=== PATIENT | male | born 1965 | race Caucasian/White ===

== ENCOUNTER → 2018-09-06 | Outpatient (CLI) | payer BC ==
--- NOTE | 2018-09-06 10:26 | US ---
EXAMINATION TYPE: US venous doppler duplex LE RT DATE OF EXAM: 09/06/2018 10:15 AM COMPARISON: NONE CLINICAL HISTORY: R22.41 Swelling RLE. Pain and edema right lower leg. SIDE PERFORMED: right TECHNIQUE: The lower extremity deep venous system is examined utilizing real time linear array sonog vincent with graded compression, doppler sonography and color-flow sonography. VESSELS IMAGED: External Iliac Vein (EIV) Common Femoral Vein Deep Femoral Vein Greater Saphenous Vein * Femoral Vein Popliteal Vein Small Saphenous Vein * Proximal Calf Veins (* superficial vessels) Right Leg: No evidence of DVT. Lymph node right groin = 3.2 x 1.1 x 2.5cm IMPRESSION: 1. Right lower extremity negative for deep venous thrombosis. 2. Some prominent right inguinal adenopathy may be present
[2018-09-06 11:08] LABS: Basophils % (A) 0 %; Eosinophils # (A) 0.1 k/uL (0-0.7); Eosinophils % (A) 2 %; HCT 43.1 % (39.0-53.0); HGB 14.3 gm/dL (13.0-17.5); Lymphocytes # (A) 1.5 k/uL (1.0-4.8); Lymphocytes % (A) 22 %; MCH 30.5 pg (25.0-35.0); MCV 92.4 fL (80.0-100.0); Mean Platelet Volume 7.4; Monocytes # (A) 0.4 k/uL (0-1.0); Monocytes % (A) 5 %; Neutrophils # (A) 4.7 k/uL (1.3-7.7); Neutrophils % (A) 69 %; Platelet Count 130 k/uL (150-450); RBC 4.67 m/uL (4.30-5.90); RDW 12.9 % (11.5-15.5); WBC 6.8 k/uL (3.8-10.6)
[2018-09-06 11:24] LABS: ALT 48 U/L (21-72); AST 43 U/L (17-59); Albumin 4.1 g/dL (3.5-5.0); Alkaline Phosphatase 106 U/L (38-126); Anion Gap 8 mmol/L; Blood Urea Nitrogen 19 mg/dL (9-20); Calcium 9.6 mg/dL (8.4-10.2); Carbon Dioxide 29 mmol/L (22-30); Chloride 105 mmol/L (98-107); Cholesterol 167 mg/dL (<200); Glucose 104 mg/dL (74-99); HDL Cholesterol 47 mg/dL (40-60); LDL Cholesterol,Calculated 97 mg/dL (0-99); Potassium 4.6 mmol/L (3.5-5.1); Sodium 142 mmol/L (137-145); Total Bilirubin 0.6 mg/dL (0.2-1.3); Total Protein 8.2 g/dL (6.3-8.2); Triglycerides 114 mg/dL (<150)
--- NOTE | 2018-09-06 11:37 | XR ---
EXAMINATION TYPE: XR ankle complete RT, XR foot complete RT DATE OF EXAM: 09/06/2018 CLINICAL HISTORY: Pain and swelling for several weeks. TECHNIQUE: Frontal, lateral and oblique images of the right ankle and foot are obtained. COMPARISON: None. FINDINGS: There is mild to moderate diffuse subcutaneous edema and soft tissue swelling. There is no acute fracture/dislocation evident in the right ankle. The ankle mortise shows asymmetric mild media l widening. There is mild spurring from the medial malleolus. There is nonspecific sclerosis over th e lateral aspect of the lateral malleolus. There are moderate to large superior and inferior calcanea l spurs. There are soft tissue calcifications or ossifications along course of the distal Achilles te ndon which is poorly defined. There is marked flexion in the distal second through fifth toes There is no acute fracture or disloca tion evident in the right foot. There is pointing or peripheral loss of the distal aspect first dista l phalanx. Mild to moderate midfoot spurring and mild narrowing is present. Overlying soft tissue is unremarkable. IMPRESSION: As above.
[2018-09-06 15:40] LABS: Iron Saturation 13.5 (15.00-50.00)
[2018-09-06 17:39] LABS: Hemoglobin A1C 7.2 % (4.0-6.0)
== END ==
LOC: RADUSWWP 09:50
PROVIDERS: ATTEND Nurse Practitioner Adult Health
DX: M79.661 Pain in right lower leg (principal); M79.89 Other specified soft tissue disorders; E11.69 Type 2 diabetes mellitus with other specified complication; R22.41 Localized swelling, mass and lump, right lower limb
CPT/HCPCS: 80053; 80061; 82306; 82607; 83036; 83540; 83550; 85025

== ENCOUNTER → 2018-09-20 | Outpatient (CLI) | payer BC ==
--- NOTE | 2018-09-22 23:26 | MR ---
EXAMINATION TYPE: MR ankle RT wo con DATE OF EXAM: 09/20/2018 COMPARISON: None HISTORY: Pain in Post. Rt ankle and heel Standard multiplanar, multisequence MRI departmental protocol Multiplanar, multisequence images of the right ankle were acquired. Diffusion weighted imaging was pe rformed. FINDINGS: There is plantar and Achilles calcaneal spur formation. Calcaneus is intact. Subtalar joint is intact. The medial and lateral flexor tendons of the ankle are intact. There is however fluid vicki und the flexor pollicis longus tendon at the plantar aspect of the midfoot. There is soft tissue corey a at the plantar aspect of the midfoot. Achilles tendon shows a 3 cm segment with significant increas ed signal consistent with almost full-thickness tear of the Achilles tendon. There is some retraction of the tendon. The ankle mortise is anatomic. The collateral ligaments appear intact. There is subcutaneous edema ar ound the lower leg. IMPRESSION: Large almost full-thickness tear of the Achilles tendon. Subcutaneous edema around the lower leg. Soft tissue swelling and edema on the plantar aspect of the midfoot with fluid around the flexor poll icis longus tendon. No fracture seen.
== END | disposition home or self-care (01) ==
LOC: RADMRIMAIN 18:17
PROVIDERS: ATTEND Internal Medicine
DX: S86.011A Strain of right Achilles tendon, initial encounter (principal); M65.269 Calcific tendinitis, unspecified lower leg; M77.30 Calcaneal spur, unspecified foot

== ENCOUNTER 2020-09-17 13:50 | Emergency (ER) | payer BC, OTHER ==
[2020-09-17 14:06] VITALS: RESP 18
--- NOTE | 2020-09-17 14:51 | CT ---
EXAMINATION TYPE: CT brain roberta rodriguez DATE OF EXAM: 09/17/2020 COMPARISON: None HISTORY: Posterior head injury and laceration. CT DLP: 1649.9 mGycm Automated exposure control for dose reduction was used. TECHNIQUE: CT scan of the head and cervical spine are performed without contrast. FINDINGS: There is no acute intracranial hemorrhage, mass effect, or midline shift identified. The ventricles and sulci are within normal limits in size. The globes are intact and changes of chronic sinusitis noted. Along the posterior margin of the epidermis there is an irregularity correlate for soft tissue injury or laceration Assessment spinal canal is limited due to artifact and resolution. There is loss the normal cervical lordosis with multilevel moderate to severe degenerative disc disease most marked at levels C5-C7. Po sterior spondylosis and canal stenosis suspected these levels bilateral foraminal encroachment. Odontoid intact. Multilevel facet arthropathy. Calcification of the carotid arteries noted correlate for atherosclerotic disease groundglass changes involving the lung apices could be related to respira tory motion artifact correlate to exclude pneumonitis. 4.8 mm right upper lobe pulmonary nodule. IMPRESSION: 1. There is no acute fracture or dislocation evident in the cervical spine. Multilevel moderate to se giselle degenerative disc disease with posterior spondylosis suspected canal stenosis and foraminal encr oachment as discussed above. Follow-up MRI recommended. 2. No acute intracranial hemorrhage, mass effect, or midline shift is seen. 3. Groundglass changes right lung apex may be related to atelectasis correlate clinically to exclude a pneumonitis. There also is a 4 mm right upper lobe pulmonary nodule. Six-month follow-up CT scan re commended.
[2020-09-17 14:58] VITALS: BP 165/83; PULSE 86; TEMP 98.5
--- NOTE | 2020-09-17 15:04 | ED ---
Wound/Laceration HPI - General Chief Complaint: Wound/Laceration Stated Complaint: IHS-Head Lac Time Seen by Provider: 09/17/20 14:11 Source: patient Mode of arrival: wheelchair Limitations: no limitations - History of Present Illness Initial Comments: 54-year-old male presenting to the emergency department with a chief complaint of a laceration and head injury. Patient was working at his job when he accidentally bumped his head on the car latch. Patient reports some bleeding which is since resolved. Denies any loss of consciousness. No blood thinners. Tetanus up-to-date. Reports minimal pain. No alleviating or aggravating factors. This occurred about one hour prior to arrival. - Related Data Home Medications Medication Instructions Recorded Confirmed New Oral Diabetic Pill Unknown Name 1 tab PO DAILY 06/19/14 06/19/14 Previous Rx's Medication Instructions Recorded Cephalexin [Keflex] 250 mg PO Q6HR 7 Days day 06/19/14 Allergies Allergy/AdvReac Type Severity Reaction Status Date / Time No Known Allergies Allergy Verified 09/17/20 14:05 Review of Systems ROS Statement: Those systems with pertinent positive or pertinent negative responses have been documented in the HPI. ROS Other: All systems not noted in ROS Statement are negative. Past Medical History Past Medical History: Diabetes Mellitus History of Any Multi-Drug Resistant Organisms: None Reported Past Surgical History: No Surgical Hx Reported Past Psychological History: No Psychological Hx Reported Smoking Status: Never smoker Past Alcohol Use History: None Reported Past Drug Use History: None Reported General Exam Limitations: no limitations General appearance: alert, in no apparent distress Head exam: Present: atraumatic, normocephalic. Absent: normal inspection (6cm laceration parietal aspect of the head. This is a superficial laceration.), other (Negative Durand sign, raccoon eyes, hemotympanum.) Eye exam: Present: normal appearance, PERRL, EOMI Pupils: Present: normal accommodation ENT exam: Present: normal exam, normal oropharynx, mucous membranes moist, TM's normal bilaterally, normal external ear exam Neck exam: Present: normal inspection, full ROM. Absent: tenderness Respiratory exam: Present: normal lung sounds bilaterally. Absent: respiratory distress, wheezes, rales Cardiovascular Exam: Present: regular rate, normal rhythm, normal heart sounds. Absent: systolic murmur, diastolic murmur Extremities exam: Present: normal inspection, full ROM, normal capillary refill. Absent: tenderness, pedal edema, joint swelling Back exam: Present: normal inspection, full ROM. Absent: tenderness, CVA tenderness (R), CVA tenderness (L) Neurological exam: Present: alert, oriented X3, normal gait Psychiatric exam: Present: normal affect, normal mood Skin exam: Present: warm, dry, intact, normal color Course Vital Signs 09/17/20 09/17/20 14:02 14:57 Temperature 98.0 F 98.5 F Pulse Rate 97 86 Respiratory 18 18 Rate Blood Pressure 184/72 165/83 O2 Sat by Pulse 98 97 Oximetry Procedures - Laceration Laceration #1 Consent Obtained: verbal consent Indication: laceration Site: scalp Size (cm): 6 Description: linear, clean Depth: simple, single layer Sedation/Analgesia: none Pre-repair: irrigated extensively, deep structures intact Type of Sutures: other (Staple) Size of Sutures: other Number of Sutures: 11 Technique: other (Staple) Complications: pain Patient Tolerated Procedure: well, no complications Medical Decision Making - Medical Decision Making 54-year-old male presenting to the emergency department with chief complaint of head injury laceration. On physical examination, patient does have a laceration measuring a proximally 6 cm in the parietal aspect of the head. Patient is otherwise neurovascularly intact. No focal neural deficits. CT of the brain and C-spine shows no acute processes. However, there is moderate to severe degenerative disc disease with posterior spondylolysis suspected canal stenosis with foraminal encroachment. Follow-up MRI recommended. Radiology. There is also ground glass changes in the right lung apex along with a 4 mm right upper lobe pulmonary nodule. 6 month follow-up CT is recommended. Patient did mention that he had Covid about one month ago. Return parameters discussed with patient was understanding and agreeable. Staple instructions given. He had total of 11 octaviano. Laceration site was thoroughly irrigated. Case discussed with physician. Disposition Clinical Impression: Laceration, Head injury Disposition: HOME SELF-CARE Condition: Stable Instructions (If sedation given, give patient instructions): Laceration (DC), Staple Care (ED), Pulmonary Nodules (ED) Additional Instructions: Please return to the emergency room in 12-14 days to have staple removed. Please watch for any signs of infection which may include increased pain, swelling, redness, fever or chills. Please return to emergency room for any signs of infection do occur. Please use clean soap and water over the area to prevent scabbing over your octaviano. Please leave wound covered for the first 24-48 hours and then leave wound open to air. Please return to the emergency room for any other concerns. Is patient prescribed a controlled substance at d/c from ED?: No Referrals: Keiko Rodas NPC [Primary Care Provider] - 1-2 days Time of Disposition: 15:04
== END 2020-09-17 15:22 | disposition home or self-care (01) ==
LOC: EC 13:50
DX: M47.812 Spondylosis without myelopathy or radiculopathy, cervical region (principal); M50.322 Other cervical disc degeneration at C5-C6 level; S01.01XA Laceration without foreign body of scalp, initial encounter; E11.9 Type 2 diabetes mellitus without complications; R91.1 Solitary pulmonary nodule; Z79.84 Long term (current) use of oral hypoglycemic drugs; W22.8XXA Striking against or struck by other objects, initial encounter; Y92.69 Other specified industrial and construction area as the place of occurrence of the external cause; Y99.0 Civilian activity done for income or pay
CPT/HCPCS: 12002; 70450; 72125; 99283

== ENCOUNTER 2021-03-31 17:04 | Observation (INO) | payer BC ==
[2021-03-31] MEDS ORDERED: SODIUM CHLORIDE 0.9% 1,000 ML IV STA (17:19)
[2021-03-31] MEDS ORDERED: PANTOPRAZOLE 40 MG/10 ML VIAL IVP STA (17:19)
[2021-03-31] MEDS ORDERED: ACETAMINOPHEN TAB 500 MG TAB PO STA ×2 (17:30→20:07)
[2021-03-31 17:50] LABS: ALT 18 U/L (4-49); AST 30 U/L (17-59); African American GFR (CKD) >90 (>60 ml/min/1.73 sqM); Alkaline Phosphatase 85 U/L (38-126); Anion Gap 6 mmol/L; Blood Urea Nitrogen 10 mg/dL (9-20); Carbon Dioxide 26 mmol/L (22-30); Chloride 99 mmol/L (98-107); Glucose 346 mg/dL (74-99); Lipase 54 U/L (23-300); Non-African American GFR(CKD) >90 (>60 ml/min/1.73 sqM); Potassium 4.1 mmol/L (3.5-5.1); Sodium 131 mmol/L (137-145); Total Bilirubin 0.4 mg/dL (0.2-1.3); Total Protein 5.9 g/dL (6.3-8.2)
[2021-03-31 18:59] LABS: Basophils % (A) 0 %; Eosinophils % (A) 0 %; Lymphocytes # (A) 1.4 k/uL (1.0-4.8); Lymphocytes % (A) 18 %; MCH 33.1 pg (25.0-35.0); MCHC 34.8 g/dL (31.0-37.0); MCV 95.2 fL (80.0-100.0); Mean Platelet Volume 9.8; Monocytes # (A) 0.4 k/uL (0-1.0); Monocytes % (A) 5 %; Neutrophils # (A) 5.7 k/uL (1.3-7.7); Neutrophils % (A) 74 %; Platelet Count 127 k/uL (150-450); Poikilocytosis Slight; RBC 2.03 m/uL (4.30-5.90); RDW 15.2 % (11.5-15.5); WBC 7.7 k/uL (3.8-10.6)
[2021-03-31 19:18] LABS: HCT 19.3 % (39.0-53.0); HGB 6.7 gm/dL (13.0-17.5)
--- NOTE | 2021-03-31 19:28 | ED ---
GI Bleed HPI <Bernardo Melendez - Last Filed: 03/31/21 19:51> - General Source: patient, RN notes reviewed Mode of arrival: ambulatory Limitations: no limitations <Landen Short - Last Filed: 04/02/21 10:04> - General Chief complaint: GI Bleed Stated complaint: low hemoglobin, sent from Dr Time Seen by Provider: 03/31/21 17:13 - History of Present Illness Initial comments: Patient is a 55-year-old male that presents to the emergency department complaining of abnormal labs at routine checkup with a low hemoglobin of 6.7. Patient also states that he is constipated his last normal bowel movement was Sunday or Sunday. He notes that he has been very gassy but has not had a bowel movement. He notes that he does have a history of an umbilical hernia which is not causing any issue in the past. Patient was otherwise well- appearing while sitting up in bed and in exam and interview. He did note that his last bowel movement was black and tarry. He denied any other issues or complaints. He denied any abdominal history. He denied any chest pain shortness of breath headache nausea vomiting diarrhea fatigue chills. (Landen Short) - Related Data Home Medications Medication Instructions Recorded Confirmed Insulin Aspart Protam & Aspart 60 unit SQ BID 03/31/21 03/31/21 [NovoLOG MIX 70-30 Flexpen] Naproxen Sodium [Aleve] 220 mg PO DAILY PRN 03/31/21 03/31/21 Ondansetron HCl [Zofran] 4 mg PO Q6H PRN 03/31/21 03/31/21 Pregabalin [Lyrica] 50 mg PO HS PRN 03/31/21 03/31/21 Pregabalin [Lyrica] 100 mg PO HS 03/31/21 03/31/21 metFORMIN HCL [Glucophage] 1,000 mg PO BID 03/31/21 03/31/21 rOPINIRole HCL [Requip] 2 - 4 mg PO HS 03/31/21 03/31/21 Allergies Allergy/AdvReac Type Severity Reaction Status Date / Time No Known Allergies Allergy Verified 03/31/21 18:42 Review of Systems ROS Other: All systems not noted in ROS Statement are negative. <Bernardo Melendez - Last Filed: 03/31/21 19:51> ROS Other: All systems not noted in ROS Statement are negative. <ShortLanden - Last Filed: 04/02/21 10:04> ROS Statement: Those systems with pertinent positive or pertinent negative responses have been documented in the HPI. Past Medical History Past Medical History: Diabetes Mellitus History of Any Multi-Drug Resistant Organisms: None Reported Past Surgical History: No Surgical Hx Reported Past Psychological History: No Psychological Hx Reported Smoking Status: Never smoker Past Alcohol Use History: None Reported Past Drug Use History: None Reported <Short,Landen - Last Filed: 04/02/21 10:04> General Exam Limitations: no limitations General appearance: alert, in no apparent distress, obese Head exam: Present: atraumatic, normocephalic, normal inspection Eye exam: Present: normal appearance, PERRL, EOMI. Absent: scleral icterus, conjunctival injection, periorbital swelling Neck exam: Present: normal inspection Respiratory exam: Present: normal lung sounds bilaterally. Absent: respiratory distress, wheezes, rales, rhonchi, stridor Cardiovascular Exam: Present: regular rate, normal rhythm, normal heart sounds. Absent: systolic murmur, diastolic murmur, rubs, gallop, clicks GI/Abdominal exam: Present: soft, distended, normal bowel sounds. Absent: tenderness, guarding, rebound, rigid Extremities exam: Present: normal inspection, full ROM, normal capillary refill. Absent: tenderness, pedal edema, joint swelling, calf tenderness Neurological exam: Present: alert, oriented X3 Psychiatric exam: Present: normal affect, normal mood Skin exam: Present: warm, dry, intact, normal color. Absent: rash <ShortLanden - Last Filed: 04/02/21 10:04> Course Vital Signs 03/31/21 03/31/21 03/31/21 17:08 17:27 20:04 Temperature 98.2 F 101.8 F H 102.2 F H Pulse Rate 105 H 91 Respiratory 20 19 Rate Blood Pressure 162/73 130/58 O2 Sat by Pulse 97 100 Oximetry 03/31/21 03/31/21 03/31/21 20:30 20:40 20:50 Temperature 99.6 F 99.1 F 99.6 F Pulse Rate 92 91 88 Respiratory 20 18 20 Rate Blood Pressure 128/62 116/59 126/62 O2 Sat by Pulse 95 95 95 Oximetry 03/31/21 03/31/21 21:00 21:30 Temperature Pulse Rate 94 87 Respiratory 18 20 Rate Blood Pressure 118/54 131/61 O2 Sat by Pulse 100 98 Oximetry Medical Decision Making - Lab Data Result diagrams: 03/31/21 17:27 03/31/21 17:27 <Bernardo Melendez - Last Filed: 03/31/21 19:51> - Lab Data Result diagrams: 04/02/21 07:37 04/02/21 07:37 <Landen Short - Last Filed: 04/02/21 10:04> - Medical Decision Making Patient out to me by previous shift physician product development assistant, Donald Short. Briefly, patient 55-year-old male presents with multiple days of GI bleed. Vital signs upon arrival shows heart rate of 105,. Repeat temperature showed pyrexia 11.8. Patient evaluated at bedside approximate 7:30 PM. Denies any localizing symptoms. He works in EMS. He may have had URI symptoms that were short-lived. He is vaccinated for Covid. Plan at sign out was to follow-up with CT imaging. Blood cultures and urine cultures were ordered. For panel viral PCR was ordered pending results. Ordered for 2 units of blood. Case is discussed with electrician manager Dr. Fernando Tian who did not feel patient met criteria for ICU admission. Patient be admitted to [facility] physician Dr. Gibbons. GI consulted (Bernardo Melendez) 55-year-old male complaining of constipation, low hemoglobin level and lower GI bleed. Labs, computed tomography scan abdomen and pelvis, 1 L normal saline, occult blood test, 40 mg of pantoprazole Labs: Hemoglobin 6.7 hematocrit 19.3 glucose 346, stool occult positive. Case signed out to Dr. Melendez (Landen Short) - Lab Data Lab Results 03/31/21 03/31/21 03/31/21 Range/Units 17:25 17:26 17:27 WBC 7.7 (3.8-10.6) k/uL RBC 2.03 L (4.30-5.90) m/uL Hgb 6.7 L* (13.0-17.5) gm/dL Hct 19.3 L* (39.0-53.0) % MCV 95.2 (80.0-100.0) fL MCH 33.1 (25.0-35.0) pg MCHC 34.8 (31.0-37.0) g/dL RDW 15.2 (11.5-15.5) % Plt Count 127 L (150-450) k/uL MPV 9.8 Neutrophils % 74 % Lymphocytes % 18 % Monocytes % 5 % Eosinophils % 0 % Basophils % 0 % Neutrophils # 5.7 (1.3-7.7) k/uL Lymphocytes # 1.4 (1.0-4.8) k/uL Monocytes # 0.4 (0-1.0) k/uL Eosinophils # 0.0 (0-0.7) k/uL Basophils # 0.0 (0-0.2) k/uL Poikilocytosis Slight APTT (22.0-30.0) sec Sodium (137-145) mmol/L Potassium (3.5-5.1) mmol/L Chloride (98-107) mmol/L Carbon Dioxide (22-30) mmol/L Anion Gap mmol/L BUN (9-20) mg/dL Creatinine (0.66-1.25) mg/dL Est GFR (CKD-EPI)AfAm (>60 ml/min/1.73 sqM) Est GFR (CKD-EPI)NonAf (>60 ml/min/1.73 sqM) Glucose (74-99) mg/dL Calcium (8.4-10.2) mg/dL Total Bilirubin (0.2-1.3) mg/dL AST (17-59) U/L ALT (4-49) U/L Alkaline Phosphatase (38-126) U/L Troponin I (0.000-0.034) ng/mL Total Protein (6.3-8.2) g/dL Albumin (3.5-5.0) g/dL Lipase (23-300) U/L Stool Occult Blood (Negative) Blood Type O Positive Blood Type Confirm O Positive Blood Type Recheck No Previous Record Bld Type Recheck Status CABO Indicated Antibody Screen NEGATIVE Crossmatch See Detail Spec Expiration Date 04/03/2021232403/31/21 03/31/21 03/31/21 Range/Units 17:27 17:27 17:27 WBC (3.8-10.6) k/uL RBC (4.30-5.90) m/uL Hgb (13.0-17.5) gm/dL Hct (39.0-53.0) % MCV (80.0-100.0) fL MCH (25.0-35.0) pg MCHC (31.0-37.0) g/dL RDW (11.5-15.5) % Plt Count (150-450) k/uL MPV Neutrophils % % Lymphocytes % % Monocytes % % Eosinophils % % Basophils % % Neutrophils # (1.3-7.7) k/uL Lymphocytes # (1.0-4.8) k/uL Monocytes # (0-1.0) k/uL Eosinophils # (0-0.7) k/uL Basophils # (0-0.2) k/uL Poikilocytosis APTT 20.2 L (22.0-30.0) sec Sodium 131 L (137-145) mmol/L Potassium 4.1 (3.5-5.1) mmol/L Chloride 99 (98-107) mmol/L Carbon Dioxide 26 (22-30) mmol/L Anion Gap 6 mmol/L BUN 10 (9-20) mg/dL Creatinine 0.80 (0.66-1.25) mg/dL Est GFR (CKD-EPI)AfAm >90 (>60 ml/min/1.73 sqM) Est GFR (CKD-EPI)NonAf >90 (>60 ml/min/1.73 sqM) Glucose 346 H (74-99) mg/dL Calcium 8.0 L (8.4-10.2) mg/dL Total Bilirubin 0.4 (0.2-1.3) mg/dL AST 30 (17-59) U/L ALT 18 (4-49) U/L Alkaline Phosphatase 85 (38-126) U/L Troponin I 0.028 (0.000-0.034) ng/mL Total Protein 5.9 L (6.3-8.2) g/dL Albumin 3.0 L (3.5-5.0) g/dL Lipase 54 (23-300) U/L Stool Occult Blood (Negative) Blood Type Blood Type Confirm Blood Type Recheck Bld Type Recheck Status Antibody Screen Crossmatch Spec Expiration Date 03/31/21 Range/Units 17:39 WBC (3.8-10.6) k/uL RBC (4.30-5.90) m/uL Hgb (13.0-17.5) gm/dL Hct (39.0-53.0) % MCV (80.0-100.0) fL MCH (25.0-35.0) pg MCHC (31.0-37.0) g/dL RDW (11.5-15.5) % Plt Count (150-450) k/uL MPV Neutrophils % % Lymphocytes % % Monocytes % % Eosinophils % % Basophils % % Neutrophils # (1.3-7.7) k/uL Lymphocytes # (1.0-4.8) k/uL Monocytes # (0-1.0) k/uL Eosinophils # (0-0.7) k/uL Basophils # (0-0.2) k/uL Poikilocytosis APTT (22.0-30.0) sec Sodium (137-145) mmol/L Potassium (3.5-5.1) mmol/L Chloride (98-107) mmol/L Carbon Dioxide (22-30) mmol/L Anion Gap mmol/L BUN (9-20) mg/dL Creatinine (0.66-1.25) mg/dL Est GFR (CKD-EPI)AfAm (>60 ml/min/1.73 sqM) Est GFR (CKD-EPI)NonAf (>60 ml/min/1.73 sqM) Glucose (74-99) mg/dL Calcium (8.4-10.2) mg/dL Total Bilirubin (0.2-1.3) mg/dL AST (17-59) U/L ALT (4-49) U/L Alkaline Phosphatase (38-126) U/L Troponin I (0.000-0.034) ng/mL Total Protein (6.3-8.2) g/dL Albumin (3.5-5.0) g/dL Lipase (23-300) U/L Stool Occult Blood Positive (Negative) Blood Type Blood Type Confirm Blood Type Recheck Bld Type Recheck Status Antibody Screen Crossmatch Spec Expiration Date Disposition <Bernardo Melendez - Last Filed: 03/31/21 19:51> Is patient prescribed a controlled substance at d/c from ED?: No <Landen Short - Last Filed: 04/02/21 10:04> Clinical Impression: Anemia, GI bleed, Fever, Splenomegaly Disposition: ADMITTED IP TO THIS HOSP Condition: Stable
[2021-03-31] MEDS ORDERED: NALOXONE 0.4 MG/ML 1 ML VIAL IV PRN (19:48)
--- NOTE | 2021-03-31 20:11 | CT ---
EXAMINATION TYPE: CT abdomen pelvis w con DATE OF EXAM: 03/31/2021 COMPARISON: None HISTORY: Fever, low hemoglobin. Vomiting blood and blood in stool [address] DLP: 2548.4 mGycm Automated exposure control for dose reduction was used. TECHNIQUE: Helical acquisition of images was performed from the lung bases through the pelvis. CONTRAST: Performed without Oral Contrast and with IV Contrast, patient injected with 100 mL of Isovu e 300. FINDINGS: LUNG BASES: No acute findings. LIVER/GB: No significant abnormality is appreciated. The biliary tree is unremarkable PANCREAS/DUODENUM: The pancreatic ducts are unremarkable. The uncinate process of the pancreas and th e second and third portion of the duodenum shows prominent edematous change consistent with the diagn osis of pancreatitis versus duodenitis, but presumably pancreatitis with secondary duodenitis. There is a 1 cm gas bubble in the pancreatic groove, a nonspecific finding which may represent duodenal div erticulum. There are no drainable fluid collections. These findings can be further characterized using endoscopy. SPLEEN: Moderate splenomegaly noted, no focal findings. ADRENALS: No significant abnormality is seen. KIDNEYS: No significant abnormality is seen. PERITONEAL CAVITY: No pneumoperitoneum. There is only trace perihepatic peritoneal fluid, the periton eal cavity is otherwise negative for fluid. RETROPERITONEAL ADENOPATHY: None visualized REPRODUCTIVE ORGANS: No significant abnormality is seen URINARY BLADDER: No significant abnormality is seen. PELVIC ADENOPATHY: None visualized. OSSEOUS STRUCTURES: No significant abnormality is seen. BOWEL: No significant abnormality is seen. OTHER: No acute vascular findings. IMPRESSION: 1. INFLAMMATORY CHANGES INVOLVING THE SECOND/THIRD PORTION OF THE DUODENUM AND UNCINATE PROCESS OF T HE PANCREAS, LIKELY PANCREATITIS/DUODENITIS. 2. MODERATE SPLENOMEGALY NOTED.
--- NOTE | 2021-03-31 20:39 | XR ---
EXAMINATION: XR chest 1V portable DATE AND TIME: 03/31/2021 8:08 PM CLINICAL INDICATION: PHH; fever TECHNIQUE: AP upright portable COMPARISON: None FINDINGS: The lungs are clear. The pleural spaces are negative. The cardiac silhouette is not enlarged. The remainder of the mediastinal silhouette is unremarkable. The skeletal structures and soft tissues are negative for acute findings. IMPRESSION: No definite acute radiographic process.
[2021-03-31] MEDS ORDERED: PREGABALIN 75 MG CAP PO STA (23:57)
[2021-04-01] MEDS ORDERED: rOPINIRole HCL 4 MG TABLET PO ONE
[2021-04-01] MEDS ORDERED: PREGABALIN 50 MG CAP PO PRN (00:17)
--- NOTE | 2021-04-01 00:19 | P.HPIM ---
History of Present Illness H&P Date: 04/01/21 Patient is a 55-year-old male with a PMH of type II DM who was sent to the emergency room due to severe anemia. Patient reports that he was in his usual state of health until this past Sunday, 5 days prior to presentation when he was out camping and became acutely ill with vomiting and diarrhea. The patient reports having dark black 2 episodes of emesis along with 3-4 episodes of tarry black stools. He reports that his last stool was on Sunday and that he has not had a bowel movement since then. He reports feeling lethargic since the onset of his symptoms. Reports also having flatulence which which she states chronic issue. He denied any additional complaints. Denied abdominal pain, subjective fevers, chills. Reports no history of GI bleeding or abdominal pain. Denied history of GERD requiring medications. Reports a family history of colon cancer and undergoes colonoscopy every 5 years since the age of 39 with last colonoscopy 3 years ago which was completely unremarkable as per patient. Denied noticing any ticks or bites. Denied noticing any rashes. Denied chest discomfort, shortness of breath. Reports that he contracted COVID-19 in August of last year and subsequently received a Moderna vaccine in October. Denied headaches, visual disturbances. Denied leg swelling or recent travel. Did report that his dog has also been under the weather since the camping trip. He initially went to see his primary care physician who ordered blood work which resulted as severe anemia with hemoglobin less than 7 for which the patient was sent to the emergency room. Repeat evaluation in the emergency room revealed hemoglobin of 6.7 and platelet count 127. Further evaluation revealed a sodium of 131, glucose 346, troponin 0.028, lipase 54, and FOBT positive. CT abdomen and pelvis revealed inflammation of the duodenum and pancreas along with moderate splenomegaly. Chest x-ray was unremarkable. The patient was noted to be febrile in the emergency room with a T-max 102.2. Review of systems: Pertinent positives and negatives as discussed in HPI, a complete review of systems was performed and all other systems are negative. Physical examination: General: non toxic, no distress, appears at stated age, obese Derm: no unusual rashes/lesions no unusual ecchymoses, warm, dry Head: atraumatic, normocephalic, symmetric Eyes: EOMI, no lid lag, anicteric sclera, pupils equal round reactive to light ENT: Nose and ears atraumatic, no thrush, no pharyngeal erythema Neck: No thyromegaly, no cervical lymphadenopathy, trachea midline, supple Mouth: no lip lesion, mucus membranes moist Cardiovascular: S1S2 reg, no murmur, positive posterior tibial pulse bilateral, no edema, capillary refill less than 2 seconds Lungs: CTA bilateral, no rhonchi, no rales , no accessory muscle use Abdominal: soft, nontender to palpation, no guarding, no appreciable organomegaly, normal bowel sounds Ext: no gross muscle atrophy, muscle strength 5 out of 5 in all 4 extremities grossly, no contractures, Neuro: CN II-XI grossly intact, light touch intact all 4 extremities, finger to nose within normal limits, Psych: Alert, oriented, appropriate affect Assessment/plan Acute blood loss anemia secondary to GI bleeding -Status post 2 units of PRBCs -GI consult -IV hydration -Nothing by mouth for now SIRS, unclear etiology -Check ESR and liver function -Follow-up urinalysis and blood cultures -Consult infectious disease in setting of splenomegaly Chronic conditions: Type II DM, restless leg syndrome -Continue with home meds -Hold oral hypoglycemics -Lispro sliding scale and blood glucose monitoring -Check A1c DVT prophylaxis -IPCDs The patient is admitted with an anticipated greater than 2 midnight stay for evaluation of acute blood loss anemia CODE STATUS: Full code Discussed with: Patient Anticipated discharge date: 2-[address]: Home Past Medical History Past Medical History: Diabetes Mellitus History of Any Multi-Drug Resistant Organisms: None Reported Past Surgical History: No Surgical Hx Reported Past Psychological History: No Psychological Hx Reported Smoking Status: Never smoker Past Alcohol Use History: None Reported Past Drug Use History: None Reported Medications and Allergies Home Medications Medication Instructions Recorded Confirmed Type Insulin Aspart Protam & Aspart 60 unit SQ BID 03/31/21 03/31/21 History [NovoLOG MIX 70-30 Flexpen] Naproxen Sodium [Aleve] 220 mg PO DAILY PRN 03/31/21 03/31/21 History Ondansetron HCl [Zofran] 4 mg PO Q6H PRN 03/31/21 03/31/21 History Pregabalin [Lyrica] 50 mg PO HS PRN 03/31/21 03/31/21 History Pregabalin [Lyrica] 100 mg PO HS 03/31/21 03/31/21 History metFORMIN HCL [Glucophage] 1,000 mg PO BID 03/31/21 03/31/21 History rOPINIRole HCL [Requip] 2 - 4 mg PO HS 03/31/21 03/31/21 History Allergies Allergy/AdvReac Type Severity Reaction Status Date / Time No Known Allergies Allergy Verified 03/31/21 18:42 Physical Exam Vitals: Vital Signs Temp Pulse Resp BP Pulse Ox 03/31/21 23:48 99.7 F H 91 22 137/69 95 03/31/21 23:25 90 20 122/74 96 03/31/21 21:30 87 20 131/61 98 03/31/21 21:00 94 18 118/54 100 03/31/21 20:50 99.6 F 88 20 126/62 95 03/31/21 20:40 99.1 F 91 18 116/59 95 03/31/21 20:30 99.6 F 92 20 128/62 95 03/31/21 20:04 102.2 F H 91 19 130/58 100 03/31/21 17:27 101.8 F H 03/31/21 17:08 98.2 F 105 H 20 162/73 97 Intake and Output 03/31/21 03/31/21 04/01/21 14:59 22:59 06:59 Intake Total 0 310 Balance 0 310 Intake: Blood Product 0 310 Rc As-1 Unit 0 310 [id number] Rc Pheresis As-3 Unit 0 [id number] Other: Weight 128.367 kg Results CBC & Chem 7: 03/31/21 17:27 03/31/21 17:27 Labs: Abnormal Lab Results - Last 24 Hours (Table) 03/31/21 03/31/21 03/31/21 Range/Units 17:25 17:27 17:27 RBC 2.03 L (4.30-5.90) m/uL Hgb 6.7 L* (13.0-17.5) gm/dL Hct 19.3 L* (39.0-53.0) % Plt Count 127 L (150-450) k/uL APTT 20.2 L (22.0-30.0) sec Sodium (137-145) mmol/L Glucose (74-99) mg/dL Calcium (8.4-10.2) mg/dL Total Protein (6.3-8.2) g/dL Albumin (3.5-5.0) g/dL Crossmatch See Detail 03/31/21 Range/Units 17:27 RBC (4.30-5.90) m/uL Hgb (13.0-17.5) gm/dL Hct (39.0-53.0) % Plt Count (150-450) k/uL APTT (22.0-30.0) sec Sodium 131 L (137-145) mmol/L Glucose 346 H (74-99) mg/dL Calcium 8.0 L (8.4-10.2) mg/dL Total Protein 5.9 L (6.3-8.2) g/dL Albumin 3.0 L (3.5-5.0) g/dL Crossmatch
[2021-04-01 03:27] LABS: African American GFR (CKD) >90 (>60 ml/min/1.73 sqM); Anion Gap 4 mmol/L; Blood Urea Nitrogen 10 mg/dL (9-20); Calcium 7.7 mg/dL (8.4-10.2); Carbon Dioxide 26 mmol/L (22-30); Chloride 102 mmol/L (98-107); Glucose 250 mg/dL (74-99); Non-African American GFR(CKD) >90 (>60 ml/min/1.73 sqM); Potassium 3.9 mmol/L (3.5-5.1); Sodium 132 mmol/L (137-145); Total Protein 5.5 g/dL (6.3-8.2)
[2021-04-01 03:28] LABS: ALT 15 U/L (4-49); AST 22 U/L (17-59); Albumin 2.7 g/dL (3.5-5.0); Alkaline Phosphatase 67 U/L (38-126); Total Bilirubin 0.7 mg/dL (0.2-1.3)
[2021-04-01 03:36] LABS: HCT 22.7 % (39.0-53.0); HGB 7.7 gm/dL (13.0-17.5); MCH 31.8 pg (25.0-35.0); MCHC 33.8 g/dL (31.0-37.0); MCV 93.8 fL (80.0-100.0); Mean Platelet Volume 9.1; Platelet Count 128 k/uL (150-450); Poikilocytosis Slight; RBC 2.42 m/uL (4.30-5.90); RDW 15.7 % (11.5-15.5)
[2021-04-01] MEDS: SODIUM CHLORIDE 0.9% 1,000 ML IV SCH ×4 (07:23→20:15)
[2021-04-01 07:29] LABS: Glucose,Whole Blood 231 mg/dL (75-99)
[2021-04-01 08:15] LABS: Appearance,Urine Clear (Clear); Bilirubin,Urine Negative (Negative); Blood,Urine Negative (Negative); Color,Urine Yellow; Glucose,Urine (UA) 3+ (Negative); Ketones,Urine Negative (Negative); Leukocyte Esterase,Urine Negative (Negative); Nitrite,Urine Negative (Negative); PH, Urine 5.5 (5.0-8.0); Protein,Urine Negative (Negative); Specific Gravity,Urine 1.019 (1.001-1.035); Urobilinogen,Urine <2.0 mg/dL (<2.0)
[2021-04-01] MEDS: INSULIN ASPART (NovoLOG) 100 UNIT/ML VIAL SQ SCH ×4 (08:16→20:10)
[2021-04-01 08:25] LABS: HCT 23.1 % (39.0-53.0); HGB 7.8 gm/dL (13.0-17.5); MCH 31.5 pg (25.0-35.0); MCHC 33.6 g/dL (31.0-37.0); MCV 93.7 fL (80.0-100.0); Mean Platelet Volume 9.2; Platelet Count 135 k/uL (150-450); Poikilocytosis Slight; RBC 2.47 m/uL (4.30-5.90); RDW 15.7 % (11.5-15.5); WBC 8.8 k/uL (3.8-10.6)
[2021-04-01] MEDS: ACETAMINOPHEN TAB 325 MG TAB PO PRN ×2 (10:40)
[2021-04-01 11:57] LABS: Glucose,Whole Blood 197 mg/dL (75-99)
[2021-04-01] MEDS: PANTOPRAZOLE 40 MG/10 ML VIAL IVP SCH ×2 (12:11→20:10)
[2021-04-01] MEDS ORDERED: PROPOFOL 10 MG/ML 20 ML VIAL IV ONE (14:06)
[2021-04-01] MEDS ORDERED: IV FLUID CONTINUATION 1,000 ML IV ONE ×2 (14:10)
--- NOTE | 2021-04-01 14:25 | P.PCN ---
Date of Procedure: 04/01/21 Procedure(s) Performed: BRIEF HISTORY: Patient is a 55-year-old, pleasant, white male admitted hospital with severe symptomatic anemia and hemoglobin of 6.7 g/dL and received 2 units of PRBC transfusion. He had an episode of hematemesis and coffee-ground emesis about 5 days ago.. He developed abdomen revealed thickening of the duodenum suspicious for ulcer. Patient never had his symptoms in the past. No history of chronic liver disease. PROCEDURE PERFORMED: Esophagogastroduodenoscopy with esophageal variceal ligation. PREOPERATIVE DIAGNOSIS: Severe symptomatic anemia and acute upper GI bleed. IV sedation per anesthesia. PROCEDURE: After informed consent was obtained, the patient was brought into the endoscopy unit. IV sedation was administered by Anesthesia under continuous monitoring. Initially the Olympus GIF-140 video endoscope was inserted into the mouth. Esophagus intubated without any difficulty. It was gradually advanced into the stomach and duodenum and carefully examined. The bulb and the second part of the duodenum appeared normal. The scope at this time was withdrawn to the stomach, adequately insufflated with air, and upon careful examination, mucosa of the antrum, body, cardia and the fundus appeared normal. There was no active bleeding identified. The scope was then withdrawn into the esophagus. The GE junction was located at 39 cm from the incisors. There were large mid/distal esophageal varices identified with no stigmata of recent bleeding or active bleeding. The rest of the esophagus appeared normal. There were no erosions or ulcerations seen. At this time the scope was removed and esophageal variceal ligation equipment was introduced into the tip of the scope and esophagus intubated without any difficulty and was gradually advanced into the distal esophagus. Using suction total of 6 bands were deployed in the distal and mid esophagus using suction. The proximal esophagus appeared normal and and the patient tolerated the procedure well. IMPRESSION: 1. Large nonbleeding mid/distal esophageal varices status post variceal ligation as described above. 2. No evidence of peptic ulcer disease. RECOMMENDATIONS: The findings of this examination were discussed with the patient as well as his family. He'll be started on a clear liquid diet. Continue with Protonix 40 mg twice daily. Initiate workup for chronic liver disease. If he stable millimeters sessile tomorrow with an outpatient follow-up in 2-3 weeks
--- NOTE | 2021-04-01 15:15 | P.PN ---
Subjective Progress Note Date: 04/01/21 Principal diagnosis: GI bleeding No further episodes of bleeding or vomiting. No nausea. No abdominal pain. No fevers or chills. Objective - Vital Signs Vital signs: Vital Signs Temp 98.4 F 04/01/21 11:36 Pulse 76 04/01/21 14:40 Resp 16 04/01/21 14:40 BP 125/58 04/01/21 14:40 Pulse Ox 96 04/01/21 14:40 Intake & Output 03/31/21 04/01/21 04/01/21 18:59 06:59 18:59 Intake Total 585 50 Output Total 575 Balance 585 -525 Weight 128.367 kg 131.1 kg Intake: IV 50 Oral 0 Blood Product 585 Rc As-1 Unit 310 [id number] Rc Pheresis As-3 Unit 275 [id number] Output: Urine 575 Other: Voiding Method Urinal # Voids 2 - Exam Constitutional: No acute distress, conversant, pleasant Eyes:Anicteric sclerae, moist conjunctiva, no lid-lag, PERRLA, ENMT: Oropharynx clear, no erythema, exudates Neck: Supple, FROM, no masses, or JVD, No carotid bruits, No thyromegaly Lungs: Clear to auscultation, Clear to percussion, Normal respiratory effort, no accessory muscle use Cardiovascular: Heart regular in rate and rhythm, No murmurs, gallops, or rubs, No peripheral edema Abdominal: Soft, Nontender, no guarding, rebound or rigidity, Normoactive bowel sounds, No hepatomegaly, No splenomegaly, No palpable mass Skin: Normal temperature, tone, texture, turgor, no induration, No subcutaneous nodules, No rash, lesions, No ulcers Extremities: No digital cyanosis, No clubbing, Pedal pulses intact and symmetrical, Radial pulses intact and symmetrical, No calf tenderness Psychiatric: Alert and oriented to person, place and time, appropriate affect, intact judgement Neuro: Muscles Strength 5/5 in all 4 extremities, Sensation to light touch grossly present throughout, Cranial nerves II-XII grossly intact, no focal sensory deficits - Labs CBC & Chem 7: 04/01/21 07:56 04/01/21 02:36 Labs: Abnormal Lab Results - Last 24 Hours (Table) 03/31/21 03/31/21 03/31/21 Range/Units 17:25 17:27 17:27 RBC 2.03 L (4.30-5.90) m/uL Hgb 6.7 L* (13.0-17.5) gm/dL Hct 19.3 L* (39.0-53.0) % RDW (11.5-15.5) % Plt Count 127 L (150-450) k/uL APTT 20.2 L (22.0-30.0) sec Sodium (137-145) mmol/L Glucose (74-99) mg/dL POC Glucose (mg/dL) (75-99) mg/dL Calcium (8.4-10.2) mg/dL Total Protein (6.3-8.2) g/dL Albumin (3.5-5.0) g/dL Urine Glucose (UA) (Negative) Crossmatch See Detail 03/31/21 04/01/21 04/01/21 Range/Units 17:27 02:36 02:36 RBC 2.42 L (4.30-5.90) m/uL Hgb 7.7 L (13.0-17.5) gm/dL Hct 22.7 L (39.0-53.0) % RDW 15.7 H (11.5-15.5) % Plt Count 128 L (150-450) k/uL APTT (22.0-30.0) sec Sodium 131 L 132 L (137-145) mmol/L Glucose 346 H 250 H (74-99) mg/dL POC Glucose (mg/dL) (75-99) mg/dL Calcium 8.0 L 7.7 L (8.4-10.2) mg/dL Total Protein 5.9 L 5.5 L (6.3-8.2) g/dL Albumin 3.0 L 2.7 L (3.5-5.0) g/dL Urine Glucose (UA) (Negative) Crossmatch 04/01/21 04/01/21 04/01/21 Range/Units 07:27 07:40 07:56 RBC 2.47 L (4.30-5.90) m/uL Hgb 7.8 L (13.0-17.5) gm/dL Hct 23.1 L (39.0-53.0) % RDW 15.7 H (11.5-15.5) % Plt Count 135 L (150-450) k/uL APTT (22.0-30.0) sec Sodium (137-145) mmol/L Glucose (74-99) mg/dL POC Glucose (mg/dL) 231 H (75-99) mg/dL Calcium (8.4-10.2) mg/dL Total Protein (6.3-8.2) g/dL Albumin (3.5-5.0) g/dL Urine Glucose (UA) 3+ H (Negative) Crossmatch 04/01/21 Range/Units 11:45 RBC (4.30-5.90) m/uL Hgb (13.0-17.5) gm/dL Hct (39.0-53.0) % RDW (11.5-15.5) % Plt Count (150-450) k/uL APTT (22.0-30.0) sec Sodium (137-145) mmol/L Glucose (74-99) mg/dL POC Glucose (mg/dL) 197 H (75-99) mg/dL Calcium (8.4-10.2) mg/dL Total Protein (6.3-8.2) g/dL Albumin (3.5-5.0) g/dL Urine Glucose (UA) (Negative) Crossmatch Assessment and Plan Plan: Acute blood loss anemia secondary to GI bleeding -Status post 2 units of PRBCs -GI consulted, EGD done esophageal varices found. Chronic liver disease work up initiated. -IV hydration -Start clears. Chronic liver disease with esophageal varices and splenomegaly -Unclear etiology -Hepatitis panel sent -Check INR and LFTs in am SIRS, unclear etiology -Follow-up blood cultures -Consult infectious disease in setting of splenomegaly Chronic conditions: Type II DM, restless leg syndrome -Continue with home meds -Hold oral hypoglycemics -Lispro sliding scale and blood glucose monitoring -Check A1c DVT prophylaxis -IPCDs CODE STATUS: Full code Discussed with: Patient Anticipated discharge date: 1-[address]: Home
[2021-04-01 15:43] LABS: Hemoglobin A1C 7.9 % (4.0-6.0)
[2021-04-01 17:21] LABS: Glucose,Whole Blood 205 mg/dL (75-99)
--- NOTE | 2021-04-01 19:40 | CONS ---
CONSULTATION DATE OF SERVICE: 04/01/2021 REASON FOR CONSULTATION: Acute upper gastrointestinal bleed. HISTORY OF PRESENT ILLNESS: The patient is a 55-year-old pleasant white male, admitted to the hospital with severe anemia and a hemoglobin of 6.7 g/dL requiring 2 units of PRBC transfusion. The patient apparently had an episode of coffee-ground emesis, followed by bright red emesis, on Sunday night and the next day he had a couple of black tarry stools. He became extremely weak and tired. He was not able to go to work the following day. He went to see his family physician, Dr. Heck, and had routine labs ordered on outpatient basis and hemoglobin was reported as 6.7. He was advised to go to the emergency room and subsequently admitted to the hospital for further evaluation. He received 2 units of PRBC transfusion. He is feeling much better today. He has been taking Aleve on and off for arthritis. No prior history of peptic ulcer disease. Last colonoscopy was approximately 3 or 4 years ago and, according to the patient, it was within normal limits. He denies any abdominal pain. No further episodes of nausea, vomiting, or bleeding. In fact, he had no bowel movements for the last 3 days. PAST MEDICAL HISTORY: Significant for hypertension, diabetes mellitus, arthritis. MEDICATIONS: At home, Glucophage, Requip, Lyrica, Aleve, Zofran, and NovoLog. ALLERGIES: None. SOCIAL HISTORY: No smoking, no alcohol use. FAMILY HISTORY: Unremarkable. PAST SURGICAL HISTORY: Colonoscopy about 3 or 4 years ago, otherwise unremarkable. REVIEW OF SYSTEMS: CARDIOPULMONARY: No chest pain. No shortness of breath. : No dysuria, hematuria. MUSCULOSKELETAL: Unremarkable. SKIN: Unremarkable. ENDOCRINE: Unremarkable. PSYCHIATRIC: Unremarkable. HEMATOLOGY: Severe anemia. ENT/VISION: Unremarkable. CONSTITUTIONAL: No recent weight loss. No fever, chills, night sweats. PHYSICAL EXAMINATION: He appears comfortable. No apparent distress. Vital signs are stable. Blood pressure is 132/86, pulse rate 84 per minute and temperature 98. HEENT: Examination unremarkable. Conjunctivae pink. Sclerae anicteric. Oral cavity, no lesions. NECK: No JVD or lymph node enlargement. CHEST: Was clear to auscultation. HEART: Regular rate and rhythm. ABDOMEN: Soft, bowel sounds are positive. EXTREMITIES: No pedal edema. SKIN: No rashes. NEUROLOGIC: Alert and oriented x3. No focal deficits. LABS: At time of admission to the hospital, hemoglobin is 6.7. After 2 units of PRBC transfusion, hemoglobin is 7.8 today. BUN and creatinine are within normal limits. Platelets are 128. AST, ALT, T-bilirubin and alkaline phosphatase are within normal limits. CT of the abdomen and pelvis done in the emergency room did show thickening of the 2nd portion of the duodenum consistent with possible pancreatitis versus duodenitis. IMPRESSION: 1. Severe symptomatic anemia with black tarry stools and one episode of coffee-ground emesis 5 days ago. Hemoglobin was 6.7, received 2 units of PRBC transfusion and repeat hemoglobin is 7.9 g/dL. No further bleeding since being in the hospital. CT showed some thickening of the duodenum/uncinate process of the pancreas suspicious of peptic ulcer disease. The patient has been taking Aleve on and off for the last several years for arthritis. Rule out possibility of peptic ulcer disease. 2. Diabetes mellitus. 3. History of hypertension. RECOMMENDATION: 1. Continue with Protonix 40 mg twice daily. 2. Will schedule with an upper endoscopy today. Discussed with the patient benefits and complications and he is agreeable to it. Thank you for this consultation. MMODL / IJN: [id number] /
[2021-04-01 20:08] LABS: Glucose,Whole Blood 243 mg/dL (75-99)
[2021-04-01] MEDS ORDERED: PREGABALIN 100 MG CAP PO SCH (21:00)
--- NOTE | 2021-04-01 22:53 | P.CONS ---
History of Present Illness - Reason for Consult Consult date: 04/01/21 fever and splenomegaly Requesting physician: Dago Gibbons - Chief Complaint abnormal labs, not feeling well - History of Present Illness Patient is a 55-year-old male presented to the hospital after the patient was noticed to have low hemoglobin on blood draw in the outpatient setting patient usually go back to his given in the [place] area where we can patient did mention he went possibly can on Sunday he had a busy day and did a lot of work sat.The patient started having episode of vomiting with multiple vomits some epigastric discomfort but no significant abdominal pain no diarrhea patient was not feeling well throughout the day on did not recall having any fever patient subsequently went to see her primary care physician on Sunday blood work was ordered which was completed on Sunday patient mention he called his primary care physician to find out about his blood work and noticed a hemoglobin of 6.7 and the patient was advised to go to the hospital patient denies having any fever or chills before coming to the hospital has been complaining of feeling gassy but no bowel movement since Sunday patient denies having any headache no chest pain shortness of breath no cough no abdominal pain no further vomiting no urinary symptoms with the symptom the patient was evaluated by the ER physician on arrival to the ER patient was afebrile but he did spike a fever of 102 F and no fever since then patient did have a normal white count but hemoglobin has been low patient did have a normal kidney function as well as liver enzymes lipase was normal urine was negative gramajo PCR was negative patient did have a CT of abdominal pelvis inflammatory changes involving the second and third portion of the duodenum and an acute process of the pancreas likely pancreatitis duodenitis moderate splenomegaly noted patient has been admitted to the hospital infectious was consulted for further management GI has been consulted for his low hemoglobin and the patient is s/p EGD with evidence of varicel bleeding Review of Systems Positive point has been mentioned in the HPI rest of the systems are negative Past Medical History Past Medical History: Diabetes Mellitus Additional Past Medical History / Comment(s): restless leg syndrome History of Any Multi-Drug Resistant Organisms: None Reported Past Surgical History: No Surgical Hx Reported Past Psychological History: No Psychological Hx Reported Smoking Status: Never smoker Past Alcohol Use History: None Reported Past Drug Use History: None Reported Medications and Allergies Home Medications Medication Instructions Recorded Confirmed Type Insulin Aspart Protam & Aspart 60 unit SQ BID 03/31/21 03/31/21 History [NovoLOG MIX 70-30 Flexpen] Naproxen Sodium [Aleve] 220 mg PO DAILY PRN 03/31/21 03/31/21 History Ondansetron HCl [Zofran] 4 mg PO Q6H PRN 03/31/21 03/31/21 History Pregabalin [Lyrica] 50 mg PO HS PRN 03/31/21 03/31/21 History Pregabalin [Lyrica] 100 mg PO HS 03/31/21 03/31/21 History metFORMIN HCL [Glucophage] 1,000 mg PO BID 03/31/21 03/31/21 History rOPINIRole HCL [Requip] 2 - 4 mg PO HS 03/31/21 03/31/21 History Allergies Allergy/AdvReac Type Severity Reaction Status Date / Time No Known Allergies Allergy Verified 03/31/21 18:42 Physical Exam Vitals: Vital Signs Temp Pulse Pulse Resp BP BP Pulse Ox 04/01/21 15:10 80 16 129/64 98 04/01/21 14:55 79 16 125/70 98 04/01/21 14:40 80 16 125/58 96 04/01/21 11:36 98.4 F 04/01/21 11:10 78 16 114/57 96 04/01/21 08:00 99.3 F 76 18 131/69 98 04/01/21 04:00 98.2 F 84 110/58 04/01/21 02:47 98.5 F 80 20 114/72 95 04/01/21 02:00 82 20 04/01/21 00:28 82 20 110/68 96 04/01/21 00:00 99.5 F 82 130/74 03/31/21 23:58 94 128/74 03/31/21 23:48 99.7 F H 91 22 137/69 95 03/31/21 23:25 90 20 122/74 96 03/31/21 21:30 87 20 131/61 98 03/31/21 21:00 94 18 118/54 100 03/31/21 20:50 99.6 F 88 20 126/62 95 03/31/21 20:40 99.1 F 91 18 116/59 95 03/31/21 20:30 99.6 F 92 20 128/62 95 07/22/21 20:04 102.2 F H 91 19 130/58 100 03/31/21 17:27 101.8 F H Intake and Output 04/01/21 04/01/21 04/01/21 06:59 14:59 22:59 Intake Total 585 50 Output Total 575 Balance 585 -525 Intake: IV 50 Oral 0 Blood Product 585 Rc As-1 Unit 310 [id number] Rc Pheresis As-3 Unit 275 [id number] Output: Urine 575 Other: Voiding Method Urinal # Voids 2 1 Weight 131.1 kg GENERAL DESCRIPTION: Middle-aged male lying in bed, no distress. No tachypnea or accessory muscle of respiration use. HEENT: Shows Pallor , no scleral icterus. Oral mucous membrane is dry. No pharyngeal erythema or thrush NECK: Trachea central, no thyromegaly. LUNGS: Unlabored breathing. Clear to auscultation anteriorly. No wheeze or crackle. HEART: S1, S2, regular rate and rhythm. No loud murmur ABDOMEN: Soft, no tenderness , guarding or rigidity, no organomegaly EXTREMITIES: No edema of feet. SKIN: No rash, no masses palpable. NEUROLOGICAL: The patient is awake, alert, oriented x3, mood and affect normal. Results CBC & Chem 7: 04/01/21 07:56 04/01/21 02:36 Labs: Abnormal Lab Results - Last 24 Hours (Table) 03/31/21 03/31/21 03/31/21 Range/Units 17:25 17:27 17:27 RBC 2.03 L (4.30-5.90) m/uL Hgb 6.7 L* (13.0-17.5) gm/dL Hct 19.3 L* (39.0-53.0) % RDW (11.5-15.5) % Plt Count 127 L (150-450) k/uL APTT 20.2 L (22.0-30.0) sec Sodium (137-145) mmol/L Glucose (74-99) mg/dL POC Glucose (mg/dL) (75-99) mg/dL Hemoglobin A1c (4.0-6.0) % Calcium (8.4-10.2) mg/dL Total Protein (6.3-8.2) g/dL Albumin (3.5-5.0) g/dL Urine Glucose (UA) (Negative) Crossmatch See Detail 03/31/21 04/01/21 04/01/21 Range/Units 17:27 02:36 02:36 RBC 2.42 L (4.30-5.90) m/uL Hgb 7.7 L (13.0-17.5) gm/dL Hct 22.7 L (39.0-53.0) % RDW 15.7 H (11.5-15.5) % Plt Count 128 L (150-450) k/uL APTT (22.0-30.0) sec Sodium 131 L 132 L (137-145) mmol/L Glucose 346 H 250 H (74-99) mg/dL POC Glucose (mg/dL) (75-99) mg/dL Hemoglobin A1c (4.0-6.0) % Calcium 8.0 L 7.7 L (8.4-10.2) mg/dL Total Protein 5.9 L 5.5 L (6.3-8.2) g/dL Albumin 3.0 L 2.7 L (3.5-5.0) g/dL Urine Glucose (UA) (Negative) Crossmatch 04/01/21 04/01/21 04/01/21 Range/Units 02:36 07:27 07:40 RBC (4.30-5.90) m/uL Hgb (13.0-17.5) gm/dL Hct (39.0-53.0) % RDW (11.5-15.5) % Plt Count (150-450) k/uL APTT (22.0-30.0) sec Sodium (137-145) mmol/L Glucose (74-99) mg/dL POC Glucose (mg/dL) 231 H (75-99) mg/dL Hemoglobin A1c 7.9 H (4.0-6.0) % Calcium (8.4-10.2) mg/dL Total Protein (6.3-8.2) g/dL Albumin (3.5-5.0) g/dL Urine Glucose (UA) 3+ H (Negative) Crossmatch 04/01/21 04/01/21 04/01/21 Range/Units 07:56 11:45 17:19 RBC 2.47 L (4.30-5.90) m/uL Hgb 7.8 L (13.0-17.5) gm/dL Hct 23.1 L (39.0-53.0) % RDW 15.7 H (11.5-15.5) % Plt Count 135 L (150-450) k/uL APTT (22.0-30.0) sec Sodium (137-145) mmol/L Glucose (74-99) mg/dL POC Glucose (mg/dL) 197 H 205 H (75-99) mg/dL Hemoglobin A1c (4.0-6.0) % Calcium (8.4-10.2) mg/dL Total Protein (6.3-8.2) g/dL Albumin (3.5-5.0) g/dL Urine Glucose (UA) (Negative) Crossmatch Assessment and Plan Assessment: 1-patient presented to hospital with low hemoglobin in this patient did have an episode of vomiting last Sunday night did not mention it was drinking heavily and did not have any bowel movement since then now with abnormal CT concerning for possible duodenitis versus peptic ulcer disease for the patient is status post EGD this afternoon patient currently do not have any obvious focus of this fever, could be due to possible viral gastroenteritis 2-isolated splenomegaly in this patient who did have evidence of variceal bleed possibly related to possible liver disease versus viral illness such as CMV or EBV (1) Fever Current Visit: Yes Status: Acute Code(s): R50.9 - FEVER, UNSPECIFIED SNOMED Code(s): 120818156 (2) Splenomegaly Current Visit: Yes Status: Acute Code(s): R16.1 - SPLENOMEGALY, NOT ELSEWHERE CLASSIFIED SNOMED Code(s): 94654022 Plan: 1-we will obtain CMV EBV serology 2-obtain stool studies if the patient started having any diarrhea 3-with no obvious focus of bacterial infection will hold on any systemic antibiotic therapy at this point We will follow on clinical condition and cultures to further adjust medication if needed Thank you for this consultation we will follow the patient along with you Time with Patient: Greater than 30
[2021-04-02] MEDS ORDERED: rOPINIRole HCL 4 MG TABLET PO SCH ×2 (02:00→21:00)
[2021-04-02 04:45] LABS: Hepatitis B Surface Antigen Non-Reactive (Non-Reactive); Hepatitis C IgG Antibody Non-Reactive (Non-Reactive)
[2021-04-02 06:07] LABS: Glucose,Whole Blood 200 mg/dL (75-99)
[2021-04-02] MEDS: SODIUM CHLORIDE 0.9% 1,000 ML IV SCH (06:41)
[2021-04-02] MEDS: INSULIN ASPART (NovoLOG) 100 UNIT/ML VIAL SQ SCH ×2 (06:41→13:19)
[2021-04-02 08:18] LABS: Basophils % (A) 0 %; Eosinophils # (A) 0.1 k/uL (0-0.7); Eosinophils % (A) 1 %; HCT 23.3 % (39.0-53.0); HGB 7.8 gm/dL (13.0-17.5); Hypochromasia Slight; Lymphocytes # (A) 0.9 k/uL (1.0-4.8); Lymphocytes % (A) 15 %; MCH 31.3 pg (25.0-35.0); MCHC 33.3 g/dL (31.0-37.0); MCV 93.9 fL (80.0-100.0); Mean Platelet Volume 9.4; Monocytes # (A) 0.3 k/uL (0-1.0); Monocytes % (A) 4 %; Neutrophils # (A) 4.8 k/uL (1.3-7.7); Neutrophils % (A) 78 %; Platelet Count 143 k/uL (150-450); Poikilocytosis Slight; RBC 2.48 m/uL (4.30-5.90); RDW 15.5 % (11.5-15.5); WBC 6.1 k/uL (3.8-10.6)
[2021-04-02 08:32] LABS: ALT 14 U/L (4-49); AST 21 U/L (17-59); African American GFR (CKD) >90 (>60 ml/min/1.73 sqM); Albumin 2.9 g/dL (3.5-5.0); Alkaline Phosphatase 68 U/L (38-126); Anion Gap 4 mmol/L; Blood Urea Nitrogen 8 mg/dL (9-20); C Reactive Protein 5.1 mg/dL (<1.0); Calcium 7.9 mg/dL (8.4-10.2); Carbon Dioxide 27 mmol/L (22-30); Chloride 104 mmol/L (98-107); Glucose 206 mg/dL (74-99); Magnesium 2.1 mg/dL (1.6-2.3); Non-African American GFR(CKD) >90 (>60 ml/min/1.73 sqM); Phosphorus 2.9 mg/dL (2.5-4.5); Sodium 135 mmol/L (137-145); Total Bilirubin 0.8 mg/dL (0.2-1.3); Total Protein 5.8 g/dL (6.3-8.2)
[2021-04-02 08:47] VITALS: RESP 18
[2021-04-02] MEDS: PANTOPRAZOLE 40 MG/10 ML VIAL IVP SCH (08:49)
[2021-04-02 09:02] LABS: Erythrocyte Sedimentation Rate 55 mm/hr (0-15)
[2021-04-02 11:46] VITALS: BP 125/65; PULSE 71; TEMP 97.9
[2021-04-02 12:16] LABS: Glucose,Whole Blood 218 mg/dL (75-99)
--- NOTE | 2021-04-02 13:25 | PN ---
PROGRESS NOTE DATE OF SERVICE: 04/02/2021 REASON FOR FOLLOWUP: 1. Fever. 2. Splenomegaly. INTERVAL HISTORY: The patient is afebrile. The patient is status post EGD yesterday with evidence of variceal bleed which has been ligated. The patient has tolerated the procedure. He did have an episode of vomiting today. He did have small bowel movement. Denies any abdominal pain. No chest pain, shortness of breath or cough. PHYSICAL EXAMINATION: Blood pressure 125/65, pulse of 71, temperature is 97.9, he is 95% on room air. General description is a middle-aged male lying in no distress. Respiratory system: Unlabored breathing, clear to auscultation anteriorly. Heart S1, S2. Regular rate and rhythm. Abdomen is soft, no tenderness. Extremities no edema of the feet. LABS: Hemoglobin 7.1, white count 6.1, BUN of 8, creatinine 0.67. DIAGNOSTIC IMPRESSION AND PLAN: 1. Patient with fever, possible viral syndrome, as the patient did not have any obvious focus of infection. Fever has resolved without antibiotics and has no need for antibiotic therapy. 2. Patient with splenomegaly and esophageal varices, possible cirrhosis. Workup is currently pending. Questions and concerns have been answered. MMODL / IJN: [id number] /
--- NOTE | 2021-04-02 14:14 | P.DS ---
Providers Date of admission: 03/31/21 19:48 Expected date of discharge: 04/02/21 Attending physician: Dago Gibbons MD Consults: 03/31/21 19:35 Consult Physician Routine Consulting Provider: Yan Peace Consult Reason/Comments: GI bleed Do you want consulting provider notified?: Yes 04/01/21 00:18 Consult Physician Routine Consulting Provider: Dominick Singletary Consult Reason/Comments: Fever, splenomegaly Do you want consulting provider notified?: Yes Primary care physician: Conrado Heck MD Hospital Course: 55-year-old male with a PMH of type II DM who was sent to the emergency room due to severe anemia. 5 days prior to presentation he was out camping and became acutely ill with vomiting and diarrhea. The patient reports having dark black 2 episodes of emesis along with 3-4 episodes of tarry black stools. He was feeling lethargic since the onset of his symptoms. He denied any additional complaints. Denied abdominal pain, subjective fevers, chills. Reports no history of GI bleeding or abdominal pain. Denied history of GERD requiring medications. He has family history of colon cancer and undergoes colonoscopy every 5 years since the age of 39 with last colonoscopy 3 years ago which was completely unremarkable as per patient. Denied noticing any ticks or bites. Denied noticing any rashes. Denied chest discomfort, shortness of breath. Denied headaches, visual disturbances. Denied leg swelling or recent travel. He initially went to see his primary care physician who ordered blood work which resulted as severe anemia with hemoglobin less than 7 for which the patient was sent to the emergency room. Repeat evaluation in the emergency room revealed hemoglobin of 6.7 and platelet count 127. Further evaluation revealed a sodium of 131, glucose 346, troponin 0.028, lipase 54, and FOBT positive. CT abdomen and pelvis revealed inflammation of the duodenum and pancreas along with moderate splenomegaly. Chest x-ray was unremarkable. The patient was noted to be febrile in the emergency room with a T-max 102.2. Patient was subsequently admitted, he was transfused 2 units of packed red blood cells. His hemoglobin came up to 7.8 and remained stable. The patient was seen by GI who did an upper endoscopy which showed large nonbleeding mid/distal esophageal varices, had variceal ligation done. There was no evidence of peptic ulcer disease on the scope noted. Chronic liver disease workup was initiated, hepatitis panel was sent and came back negative. Patient doesn't have significant amount of drinking history. He denied any blood transfusion in the past. The only plausible cause of his chronic liver disease would be nonalcoholic steatohepatitis, as he does have history of obesity and diabetes indicative of metabolic syndrome. On the day of discharge patient was stable. He will have follow-up hemoglobin check in 3 days. He will also need follow-up with GI as an outpatient, he is aware. Time for discharge 35 min Patient Condition at Discharge: Stable Plan - Discharge Summary Discharge Rx Participant: Yes New Discharge Prescriptions: Continue rOPINIRole HCL [Requip] 2 - 4 mg PO HS Pregabalin [Lyrica] 100 mg PO HS Pregabalin [Lyrica] 50 mg PO HS PRN PRN Reason: Pain metFORMIN HCL [Glucophage] 1,000 mg PO BID Ondansetron HCl [Zofran] 4 mg PO Q6H PRN PRN Reason: Nausea And Vomiting Insulin Aspart Protam & Aspart [NovoLOG MIX 70-30 Flexpen] 60 unit SQ BID Discontinued Naproxen Sodium [Aleve] 220 mg PO DAILY PRN PRN Reason: Pain Discharge Medication List Insulin Aspart Protam & Aspart [NovoLOG MIX 70-30 Flexpen] 60 unit SQ BID 03/31/21 [History] Ondansetron HCl [Zofran] 4 mg PO Q6H PRN 03/31/21 [History] Pregabalin [Lyrica] 50 mg PO HS PRN 03/31/21 [History] Pregabalin [Lyrica] 100 mg PO HS 03/31/21 [History] metFORMIN HCL [Glucophage] 1,000 mg PO BID 03/31/21 [History] rOPINIRole HCL [Requip] 2 - 4 mg PO HS 03/31/21 [History] Follow up Appointment(s)/Referral(s): Conrado Heck MD [Primary Care Provider] - 1-2 days Ambulatory/Diagnostic Orders: Complete Blood Count w/diff [LAB.AMB] Time Frame: 3 Days, Location: None Selected
[2021-04-02 15:55] LABS: Procalcitonin 0.09 ng/mL (0.02-0.09)
[2021-04-03 18:34] LABS: EBV-EA (IgG) <0.2 AI; EBV-EBNA(IgG) >8.0 AI; EBV-VCA (IgM) <0.2 AI
== END 2021-04-02 16:11 | disposition home or self-care (01) ==
LOC: EC 17:04 → 3SCARD 19:48 → INTOOBSV 19:48 → 3SCARD 20:12 → UNDODISIN 04-02 16:11
PROVIDERS: ADMIT Internal Medicine; ATTEND Internal Medicine
DX: K92.2 Gastrointestinal hemorrhage, unspecified (principal); D62 Acute posthemorrhagic anemia; G25.81 Restless legs syndrome; I10 Essential (primary) hypertension; I85.00 Esophageal varices without bleeding; K59.00 Constipation, unspecified; Z79.4 Long term (current) use of insulin; Z80.0 Family history of malignant neoplasm of digestive organs; Z86.16 Personal history of COVID-19; Z20.822 Contact with and (suspected) exposure to COVID-19; M19.90 Unspecified osteoarthritis, unspecified site; E11.9 Type 2 diabetes mellitus without complications; R16.1 Splenomegaly, not elsewhere classified; K42.9 Umbilical hernia without obstruction or gangrene; E66.9 Obesity, unspecified; Z68.38 Body mass index [BMI] 38.0-38.9, adult
CPT/HCPCS: 96375; 36430; 96374; 99285; 36415; 86900; 86901; 86803; 86665 ×2; 80053 ×3; 85652; 86663; 83690; 83735; 84100; 84484; 85025 ×2; 85027; 85730; 86850; 86920; 86140; 87340; 82272; 81003; 87040; 86664; 86644; 86645; 83036; 84145; 87635; 71045; 74177; 43244; G0378 ×3; P9016; J2704; C9113 ×3; Q9967

== ENCOUNTER 2021-07-01 06:43 | Day surgery (SDC) | payer BC ==
[2021-06-29 10:38] VITALS: BMI 36.9
[2021-07-01 07:05] VITALS: TEMP 98.4
[2021-07-01] MEDS ORDERED: LACTATED RINGERS 1,000 ML IV ONE (07:05)
[2021-07-01] MEDS ORDERED: LIDOCAINE 1% (10MG/ML) FOR IV START INTRADERMA ONE (07:10)
[2021-07-01 07:22] LABS: Glucose,Whole Blood 252 mg/dL (75-99)
[2021-07-01] MEDS ORDERED: PROPOFOL 10 MG/ML 20 ML VIAL IV ONE (07:23)
--- NOTE | 2021-07-01 07:36 | P.PCN ---
Date of Procedure: 07/01/21 Procedure(s) Performed: BRIEF HISTORY: Patient is a 55-year-old, pleasant, white male with history of esophageal varices scheduled for an upper endoscopy with variceal ligation today. Patient had an upper endoscopy in March 2021 when he presented with acute upper GI bleed. He was noted to have large esophageal varices for which she underwent esophageal variceal ligation. Currently on Inderal 10 mg 3 times daily. 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 PROCEDURE PERFORMED: Esophagogastroduodenoscopy with variceal ligation. PREOPERATIVE DIAGNOSIS: History of esophageal variceal bleeding/follow-up esophageal varices. IV sedation per anesthesia. PROCEDURE: After informed consent was obtained, the patient was brought into the endoscopy unit. IV sedation was administered by Anesthesia under continuous monitoring. Initially the Olympus GIF-140 video endoscope was inserted into the mouth. Esophagus intubated without any difficulty. It was gradually advanced into the stomach and duodenum and carefully examined. The bulb and the second part of the duodenum appeared normal. The scope at this time was withdrawn to the stomach, adequately insufflated with air, and upon careful examination, mucosa of the antrum, body, cardia and the fundus had changes consistent with portal hypertensive gastropathy.. The scope was then withdrawn into the esophagus. The GE junction was located at 39 cm from the incisors. There were large mid and distal esophageal varices noted. The rest of the esophagus appeared normal. At this time the scope was removed and esophageal variceal ligation equipment was introduced onto the tip of the scope in the esophagus reintubated without any difficulty. It was gradually advanced into the distal esophagus and using suction total of 6 bands were deployed. The patient tolerated the procedure well.. IMPRESSION: 1. Large mid and distal esophageal varices status post variceal ligation as described above. 2. Moderate to severe portal hypertensive gastropathy. RECOMMENDATIONS: The findings of this examination were discussed with the patient as well as his family. He will continue with propranolol 10 mg 3 times daily. We'll plan a repeat upper endoscopy with variceal ligation in 4-6 weeks..
[2021-07-01] MEDS ORDERED: ONDANSETRON 4 MG/2 ML VIAL ONE (07:48)
[2021-07-01] MEDS ORDERED: ONDANSETRON 4 MG/2 ML VIAL IVP ONE (07:52)
[2021-07-01 08:11] VITALS: BP 151/84; PULSE 69; RESP 16
== END 2021-07-01 08:29 | disposition home or self-care (01) ==
LOC: ORWHC2ENDO 06:43
PROVIDERS: ATTEND Internal Medicine Gastroenterology
DX: I85.00 Esophageal varices without bleeding (principal); I10 Essential (primary) hypertension; E11.9 Type 2 diabetes mellitus without complications; Z79.899 Other long term (current) drug therapy; Z79.4 Long term (current) use of insulin
CPT/HCPCS: 43244; J2405; J2704

== ENCOUNTER → 2021-07-29 | Outpatient (CLI) | payer BC ==
--- NOTE | 2021-07-29 11:40 | US ---
EXAMINATION TYPE: US liver DATE OF EXAM: 07/29/2021 COMPARISON: CT 03/31/2021 CLINICAL HISTORY: 55-year-old male K76.9 LIVER DISEASE. TECHNIQUE: Multiple sonographic images of the right upper quadrant are obtained. FINDINGS: EXAM MEASUREMENTS: Liver Length: 18.9 cm Gallbladder Wall: 0.4 cm CBD: 0.5 cm Right Kidney: 13.4 x 6.3 x 5.9 cm Pancreas: Tail obscured by overlying bowel gas. Visualized portions within normal limits. Liver: Mildly large. Bases to be subtle contour nodularity. No focal lesion seen. Gallbladder: Borderline hydropic at 10.2 cm long with mild wall thickening and possible small stones indicated by the crisis specialist Evidence for sonographic Warner's sign: no CBD: wnl Right Kidney: no evidence of hydronephrosis IMPRESSION: 1. Mild hepatomegaly (18.9 cm). There is subtle contour nodularity of the liver. Further clinical cor relation recommended for potential underlying cirrhosis. 2. Borderline hydropic gallbladder with mild wall thickening and possible tiny calculi. Findings may relate to fasting state or could be reactive to underlying cirrhosis. If there is right upper quadran t pain or concern for early acute cholecystitis, follow-up HIDA scan. 3. No biliary ductal dilatation.
== END | disposition home or self-care (01) ==
LOC: RADUSWWP 08:05
PROVIDERS: ATTEND Internal Medicine Gastroenterology
DX: K76.89 Other specified diseases of liver (principal); R16.0 Hepatomegaly, not elsewhere classified
CPT/HCPCS: 76705

== ENCOUNTER 2021-09-30 06:14 | Day surgery (SDC) | payer BC ==
[2021-09-26 12:44] VITALS: BMI 36.9
[~2021-09-30 06:14] MED LIST: LACTATED RINGERS 1,000 ML IV SCH
[2021-09-30 07:05] LABS: Glucose,Whole Blood 387 mg/dL (75-99)
[2021-09-30] MEDS ORDERED: INSULIN ASPART (NovoLOG) 100 UNIT/ML VIAL SQ ONE (07:11)
[2021-09-30 07:15] VITALS: RESP 16; TEMP 98.8
[2021-09-30] MEDS ORDERED: MIDAZOLAM 2 MG/2 ML VIAL ONE (07:16)
[2021-09-30] MEDS ORDERED: LIDOCAINE 1% INJ 10MG/ML (20 ML MDV) ONE (07:16)
[2021-09-30] MEDS ORDERED: ONDANSETRON 4 MG/2 ML VIAL ONE (07:16)
[2021-09-30] MEDS ORDERED: PROPOFOL 10 MG/ML 20 ML VIAL IV ONE (07:16)
[2021-09-30] MEDS ORDERED: fentaNYL (PF) 50 MCG/ML 2 ML AMP ONE (07:16)
--- NOTE | 2021-09-30 07:34 | P.PCN ---
Date of Procedure: 09/30/21 Procedure(s) Performed: BRIEF HISTORY: Patient is a 55-year-old, pleasant, white male with history of cirrhosis of the liver and prior history of esophageal varices scheduled for an upper endoscopy as a part of follow-up of esophageal varices and possible variceal ligation.. PROCEDURE PERFORMED: Esophagogastroduodenoscopy with variceal ligation. PREOPERATIVE DIAGNOSIS: Cirrhosis of the liver/follow-up esophageal varices. IV sedation per anesthesia. PROCEDURE: After informed consent was obtained, the patient was brought into the endoscopy unit. IV sedation was administered by Anesthesia under continuous monitoring. Initially the Olympus GIF-140 video endoscope was inserted into the mouth. Esophagus intubated without any difficulty. It was gradually advanced into the stomach and duodenum and carefully examined. The bulb and the second part of the duodenum appeared normal. The scope at this time was withdrawn to the stomach, adequately insufflated with air, and upon careful examination, mucosa of the antrum, body, cardia and the fundus had changes with mild portal hypertensive gastropathy. Small amount of bleeding. In the stomach consistent with diabetic gastroparesis. The scope was then withdrawn into the esophagus. The GE junction was located at 45 cm from the incisors. There was a large mid and distal esophageal varices identified. At this time the scope was removed and esophageal variceal ligation treatment was administered per the scope and esophagus intubated without any difficulty and was gradually advanced into the distal esophagus. Using suction bands were deployed in a spiral fashion in total of 6 bands were deployed. The rest of the esophagus appeared normal. There were no erosions or ulcerations seen and the patient tolerated the procedure well. IMPRESSION: 1. Large mid and distal esophageal varices status post variceal ligation as described above. 2. Mild diabetic gastroparesis. 3. Portal hypertensive gastropathy RECOMMENDATIONS: The findings of this examination were discussed with the patient as well as his family. He was advised to continue with omeprazole 20 mg daily and he will have a repeat EGD with variceal ligation in 4-6 weeks.
[2021-09-30 07:38] VITALS: PULSE 82
[2021-09-30 07:40] LABS: Glucose,Whole Blood 336 mg/dL (75-99)
[2021-09-30 08:00] VITALS: BP 135/80
== END 2021-09-30 08:08 | disposition home or self-care (01) ==
LOC: ORWHC2ENDO 06:14
PROVIDERS: ATTEND Internal Medicine Gastroenterology
DX: K74.60 Unspecified cirrhosis of liver (principal); I85.10 Secondary esophageal varices without bleeding; K76.6 Portal hypertension; K31.89 Other diseases of stomach and duodenum; G47.33 Obstructive sleep apnea (adult) (pediatric); E11.9 Type 2 diabetes mellitus without complications; E66.01 Morbid (severe) obesity due to excess calories; Z68.37 Body mass index [BMI] 37.0-37.9, adult; Z79.84 Long term (current) use of oral hypoglycemic drugs; Z79.4 Long term (current) use of insulin; Z79.899 Other long term (current) drug therapy
CPT/HCPCS: 43244; J2250; J2405; J2001; J3010; J2704

== ENCOUNTER 2022-01-13 08:27 | Day surgery (SDC) | payer BC ==
[2022-01-11 13:34] VITALS: BMI 36.9
[2022-01-13 09:13] VITALS: RESP 16; TEMP 99
[2022-01-13] MEDS ORDERED: ONDANSETRON 4 MG/2 ML VIAL ONE (09:16)
[2022-01-13 09:19] LABS: Glucose,Whole Blood 200 mg/dL (75-99)
[2022-01-13] MEDS ORDERED: ONDANSETRON 4 MG/2 ML VIAL IVP ONE (09:20)
[2022-01-13] MEDS ORDERED: LIDOCAINE 2% INJ 20 MG/ML (2 ML VIAL) ONE (10:29)
[2022-01-13] MEDS ORDERED: PROPOFOL 10 MG/ML 20 ML VIAL IV ONE (10:29)
--- NOTE | 2022-01-13 10:50 | P.PCN ---
Date of Procedure: 01/13/22 Procedure(s) Performed: BRIEF HISTORY: Patient is a 56-year-old, pleasant, white male with history of liver cirrhosis and history of esophageal varices is scheduled for an upper endoscopy as part of follow-up of esophageal varices and possible variceal ligation.. PROCEDURE PERFORMED: Esophagogastroduodenoscopy with variceal ligation. PREOPERATIVE DIAGNOSIS: Follow-up esophageal varices. IV sedation per anesthesia. PROCEDURE: After informed consent was obtained, the patient was brought into the endoscopy unit. IV sedation was administered by Anesthesia under continuous monitoring. Initially the Olympus GIF-140 video endoscope was inserted into the mouth. Esophagus intubated without any difficulty. It was gradually advanced into the stomach and duodenum and carefully examined. The bulb and the second part of the duodenum appeared normal. The scope at this time was withdrawn to the stomach, adequately insufflated with air, and upon careful examination, mucosa of the antrum, body, cardia and the fundus appeared normal. There were changes consistent with mild portal hypertensive gastropathy. The scope was then withdrawn into the esophagus. The GE junction was located at 42 cm from the incisors. This morning mid distal esophageal varices noted. The esophagus appeared normal. There were no erosions or ulcerations seen . The scope was then removed and esophageal variceal ligation equipment was introduced into the tip of the scope and esophagus intubated without any difficulty and was gradually advanced into the distal esophagus. Using suction total of 4 bands were deployed. The proximal esophagus appeared normal and the patient tolerated the procedure well. IMPRESSION: 1. Small mid and distal esophageal varices status post variceal ligation as described above. 2. Mild portal hypertensive gastropathy. RECOMMENDATIONS: The findings of this examination were discussed with the patient as well as his family. He was advised to continue with propranolol 20 mg 3 times daily. He'll plan a repeat upper endoscopy with variceal ligation in 1.
[2022-01-13 11:14] LABS: Glucose,Whole Blood 102 mg/dL (75-99)
[2022-01-13] MEDS ORDERED: ACETAMINOPHEN TAB 325 MG TAB PO ONE (11:17)
[2022-01-13] MEDS ORDERED: ACETAMINOPHEN TAB 325 MG TAB ONE (11:18)
[2022-01-13 11:30] VITALS: BP 128/80; PULSE 64
== END 2022-01-13 11:34 | disposition home or self-care (01) ==
LOC: ORWHC2ENDO 08:27
PROVIDERS: ATTEND Internal Medicine Gastroenterology
DX: I85.00 Esophageal varices without bleeding (principal); K31.89 Other diseases of stomach and duodenum; K76.6 Portal hypertension; K74.60 Unspecified cirrhosis of liver; G47.33 Obstructive sleep apnea (adult) (pediatric); E11.9 Type 2 diabetes mellitus without complications; G25.81 Restless legs syndrome; E66.01 Morbid (severe) obesity due to excess calories; Z79.4 Long term (current) use of insulin; Z79.84 Long term (current) use of oral hypoglycemic drugs
CPT/HCPCS: 43244; J2405; J2704; J2001

== ENCOUNTER 2022-04-22 16:35 | Emergency (ER) | payer BC ==
[2022-04-22 16:48] VITALS: RESP 20; TEMP 97.6
[2022-04-22] MEDS ORDERED: SODIUM CHLORIDE 0.9% 500 ML 500 ML IV STA (16:51)
[2022-04-22] MEDS ORDERED: ONDANSETRON 4 MG/2 ML VIAL IVP STA (16:55)
--- NOTE | 2022-04-22 17:32 | ED ---
GI Bleed HPI - General Chief complaint: GI Bleed Stated complaint: Poss GI bleed-sent by PCP Time Seen by Provider: 04/22/22 16:48 Source: patient, family, RN notes reviewed, old records reviewed Mode of arrival: ambulatory Limitations: no limitations - History of Present Illness Initial comments: 56-year-old male, well-appearing, presents to the emergency room with complaints of 4 episodes of hematemesis today. Patient has a known history of esophageal varices. He denies any pain. No rectal bleeding. Denies any fevers. He had band ligation with Dr. Buck January 13 of distal esophagus. He states that she cleared him and next follow-up in one year. Patient has a history of diabetes, restless leg syndrome, nephritis and liver cirrhosis. MD complaint: gross hematemesis -: days(s) (1) Radiation: none Severity scale (1-10): 0 Quality: painless Consistency: intermittent Context: history of GI bleed, liver disease, known esophageal varices Associated Symptoms: denies other symptoms Treatments Prior to Arrival: none - Related Data Home Medications Medication Instructions Recorded Confirmed Insulin Aspart Prot/Insuln Asp 70 unit SQ BID-W/MEALS 03/31/21 04/22/22 [NovoLOG MIX 70-30 Flexpen] Pregabalin [Lyrica] 50 mg PO HS PRN MDD 150 03/31/21 04/22/22 Pregabalin [Lyrica] 100 mg PO HS 03/31/21 04/22/22 metFORMIN HCL [Glucophage] 1,000 mg PO BID 03/31/21 04/22/22 rOPINIRole HCL [Requip] 2 - 4 mg PO HS 03/31/21 04/22/22 Albuterol Inhaler [Ventolin Hfa 1 - 2 puff INHALATION RT-Q4H PRN 04/22/22 04/22/22 Inhaler] Allergies Allergy/AdvReac Type Severity Reaction Status Date / Time No Known Allergies Allergy Verified 04/22/22 16:48 Review of Systems ROS Statement: Those systems with pertinent positive or pertinent negative responses have been documented in the HPI. ROS Other: All systems not noted in ROS Statement are negative. Past Medical History Past Medical History: Diabetes Mellitus Additional Past Medical History / Comment(s): Restless leg syndrome, hx nephritis as a child, "protruding vessels in throat and liver." History of Any Multi-Drug Resistant Organisms: None Reported Past Surgical History: No Surgical Hx Reported Additional Past Surgical History / Comment(s): EGD X3 Past Anesthesia/Blood Transfusion Reactions: No Reported Reaction Past Psychological History: No Psychological Hx Reported Smoking Status: Never smoker Past Alcohol Use History: Rare - Past Family History Father Family Medical History: Cancer Additional Family Medical History / Comment(s): Lung cancer. Mother Family Medical History: Cancer Additional Family Medical History / Comment(s): Breast cancer. General Exam Limitations: no limitations General appearance: alert, in no apparent distress Head exam: Present: atraumatic Eye exam: Present: normal appearance. Absent: periorbital swelling ENT exam: Present: mucous membranes moist Neck exam: Absent: tenderness, meningismus Respiratory exam: Present: normal lung sounds bilaterally. Absent: respiratory distress, wheezes, rales, rhonchi, stridor, accessory muscle use Cardiovascular Exam: Present: tachycardia GI/Abdominal exam: Present: soft. Absent: distended, tenderness, guarding, rebound, rigid Extremities exam: Present: normal capillary refill, pedal edema (1+). Absent: tenderness, calf tenderness Back exam: Present: normal inspection, full ROM. Absent: tenderness, CVA tenderness (R), CVA tenderness (L), rash noted Neurological exam: Present: alert, oriented X3 Psychiatric exam: Present: normal affect, normal mood Skin exam: Present: warm, dry, normal color. Absent: cyanosis, diaphoretic, petechiae, pallor Course Vital Signs 04/22/22 04/22/22 16:44 18:35 Temperature 97.6 F Pulse Rate 108 H 109 H Respiratory 20 20 Rate Blood Pressure 115/61 126/75 O2 Sat by Pulse 100 98 Oximetry Medical Decision Making - Medical Decision Making Patient presents with 4 episodes of hematemesis today. He does have a history of esophageal varices with banding by Dr. Buck on January 13 of this year. Four ligation bands placed distal esophagus at that time. Patient does have a history of diabetes, restless leg syndrome, nephritis and liver cirrhosis. Hemoglobin and hematocrit 10.9 and 33.0 respectively. Platelet count is 110. Blood glucose 455 he was given 1 L normal saline. Magnesium is 1.4 he was given 2 g of magnesium IV. Patient was given Zofran and Reglan for nausea. Case discussed with Dr. Ayers who also recommended Rocephin prophylactically. Patient will be transferred to [facility] as we do not have GI coverage. I did discuss this with patient and his family and they are agreeable to transfer. Vital signs are stable. Patient has had no hematemesis in the emergency room. Patient was accepted by Dr. Frye. - Lab Data Result diagrams: 04/22/22 17:07 04/22/22 17:07 Lab Results 04/22/22 04/22/22 04/22/22 Range/Units 17:07 17:07 17:07 WBC 7.0 (3.8-10.6) k/uL RBC 3.48 L (4.30-5.90) m/uL Hgb 10.9 L (13.0-17.5) gm/dL Hct 33.0 L (39.0-53.0) % MCV 94.8 (80.0-100.0) fL MCH 31.2 (25.0-35.0) pg MCHC 33.0 (31.0-37.0) g/dL RDW 13.1 (11.5-15.5) % Plt Count 110 L (150-450) k/uL MPV 9.6 Neutrophils % 82 % Lymphocytes % 12 % Monocytes % 4 % Eosinophils % 0 % Basophils % 0 % Neutrophils # 5.7 (1.3-7.7) k/uL Lymphocytes # 0.9 L (1.0-4.8) k/uL Monocytes # 0.3 (0-1.0) k/uL Eosinophils # 0.0 (0-0.7) k/uL Basophils # 0.0 (0-0.2) k/uL PT 11.9 (9.0-12.0) sec INR 1.1 (<1.2) APTT 21.6 L (22.0-30.0) sec Sodium 134 L (137-145) mmol/L Potassium 5.1 (3.5-5.1) mmol/L Chloride 100 (98-107) mmol/L Carbon Dioxide 23 (22-30) mmol/L Anion Gap 11 mmol/L BUN 29 H (9-20) mg/dL Creatinine 0.65 L (0.66-1.25) mg/dL Est GFR (CKD-EPI)AfAm >90 (>60 ml/min/1.73 sqM) Est GFR (CKD-EPI)NonAf >90 (>60 ml/min/1.73 sqM) Glucose 455 H (74-99) mg/dL Calcium 8.7 (8.4-10.2) mg/dL Magnesium 1.4 L (1.6-2.3) mg/dL Total Bilirubin 0.8 (0.2-1.3) mg/dL AST 29 (17-59) U/L ALT 24 (4-49) U/L Alkaline Phosphatase 137 H (38-126) U/L Total Protein 6.7 (6.3-8.2) g/dL Albumin 3.4 L (3.5-5.0) g/dL Disposition Clinical Impression: Hematemesis, History of esophageal varices with bleeding, Hyperglycemia, Hypomagnesemia Disposition: OTHER INSTITUTION NOT DEFINED Condition: Fair Referrals: Conrado Heck MD [Primary Care Provider] - 1-2 days Decision Date: 04/22/22 Decision Time: 18:18 - Out of Hospital Transfer - Req. Specs Out of Hospital Transfer - Requested Specifics: Other Emergency Center ([facility])
[2022-04-22 17:38] LABS: Basophils % (A) 0 %; Eosinophils % (A) 0 %; HGB 10.9 gm/dL (13.0-17.5); Lymphocytes # (A) 0.9 k/uL (1.0-4.8); Lymphocytes % (A) 12 %; MCH 31.2 pg (25.0-35.0); MCV 94.8 fL (80.0-100.0); Mean Platelet Volume 9.6; Monocytes # (A) 0.3 k/uL (0-1.0); Monocytes % (A) 4 %; Neutrophils # (A) 5.7 k/uL (1.3-7.7); Neutrophils % (A) 82 %; Platelet Count 110 k/uL (150-450); RBC 3.48 m/uL (4.30-5.90); RDW 13.1 % (11.5-15.5)
[2022-04-22 17:46] LABS: ALT 24 U/L (4-49); AST 29 U/L (17-59); African American GFR (CKD) >90 (>60 ml/min/1.73 sqM); Albumin 3.4 g/dL (3.5-5.0); Alkaline Phosphatase 137 U/L (38-126); Anion Gap 11 mmol/L; Blood Urea Nitrogen 29 mg/dL (9-20); Calcium 8.7 mg/dL (8.4-10.2); Carbon Dioxide 23 mmol/L (22-30); Chloride 100 mmol/L (98-107); Glucose 455 mg/dL (74-99); Magnesium 1.4 mg/dL (1.6-2.3); Non-African American GFR(CKD) >90 (>60 ml/min/1.73 sqM); Potassium 5.1 mmol/L (3.5-5.1); Sodium 134 mmol/L (137-145); Total Bilirubin 0.8 mg/dL (0.2-1.3); Total Protein 6.7 g/dL (6.3-8.2)
[2022-04-22 17:54] LABS: INR 1.1 (<1.2); Prothrombin Time 11.9 sec (9.0-12.0)
[2022-04-22] MEDS ORDERED: METOCLOPRAMIDE 5 MG/ML 2 ML VIAL IVP STA (18:00)
[2022-04-22 18:02] LABS: Partial Thromboplastin Time 21.6 sec (22.0-30.0)
[2022-04-22] MEDS ORDERED: cefTRIAXone IN SWFI 1,000 MG/10 ML SYRINGE IVP STA (18:02)
[2022-04-22] MEDS ORDERED: PANTOPRAZOLE 40 MG/10 ML VIAL IVP STA (18:02)
[2022-04-22] MEDS ORDERED: SODIUM CHLORIDE 0.9% 500 ML 500 ML IV ONE (18:08)
[2022-04-22] MEDS: MAGNESIUM SULFATE-D5W PMX 1 GM in DEXTROSE/WATER 1 100ML.BAG IVPB SCH ×2 (18:30→18:58)
[2022-04-22 18:41] VITALS: BP 126/75; PULSE 109
== END 2022-04-22 19:00 | disposition other institution (70) ==
LOC: EC 16:35
DX: K92.0 Hematemesis (principal); E83.42 Hypomagnesemia; R73.9 Hyperglycemia, unspecified
CPT/HCPCS: 36415; 80053; 83735; 85025; 85610; 85730; 96365; 96361; 96375; 99284; J2765; J2405; J0696; J3475; C9113

== ENCOUNTER 2022-06-28 11:36 | Day surgery (SDC) | payer BC ==
[~2022-06-28 11:36] MED LIST changes: +DEXAMETHASONE SOD PHOSPHATE 4 MG/ML 1 ML VIAL IV ONE; +HYDROmorphone 0.5 MG/0.5 ML SYRINGE IVP PRN; +ONDANSETRON 4 MG/2 ML VIAL IVP ONE; +ceFAZolin 3 GM in SODIUM CHLORIDE 0.9% 100 ML IVPB PRN
[2022-06-28 12:06] LABS: Glucose,Whole Blood 125 mg/dL (70-110)
[2022-06-28] MEDS ORDERED: fentaNYL (PF) 50 MCG/ML 2 ML AMP IVP ONE ×2 (12:15→12:16)
[2022-06-28] MEDS ORDERED: MIDAZOLAM 2 MG/2 ML VIAL IVP ONE (12:15)
[2022-06-28] MEDS ORDERED: fentaNYL (PF) 50 MCG/ML 2 ML AMP ONE (13:32)
[2022-06-28] MEDS ORDERED: LIDOCAINE 2% INJ 20 MG/ML (2 ML VIAL) ONE (13:32)
[2022-06-28] MEDS ORDERED: SUCCINYLCHOLINE CHLORIDE 200 MG/10 ML VIAL IV ONE (13:32)
[2022-06-28] MEDS ORDERED: NEOSTIGMINE 1 MG/ML 10 ML VIAL ONE (13:32)
[2022-06-28] MEDS ORDERED: SODIUM CHLORIDE 0.9% (PF) 10 ML VIAL ONE (13:32)
[2022-06-28] MEDS ORDERED: ROCURONIUM 10 MG/ML (5 ML VIAL) IV ONE (13:32)
[2022-06-28] MEDS ORDERED: MIDAZOLAM 2 MG/2 ML VIAL ONE (13:32)
[2022-06-28] MEDS ORDERED: PROPOFOL 10 MG/ML 20 ML VIAL IV ONE (13:32)
[2022-06-28] MEDS ORDERED: ePHEDrine 50 MG/ML 1 ML VIAL ONE (13:32)
[2022-06-28] MEDS ORDERED: ROPIVACAINE 5 MG/ML 30 ML VIAL ONE (13:32)
[2022-06-28] MEDS ORDERED: GLYCOPYRROLATE 0.2 MG/ML 2 ML VIAL ONE (13:32)
[2022-06-28] MEDS ORDERED: PHENYLEPHRINE-0.9% NACL SYG 1,000 MCG/10 ML SYRINGE ONE (13:32)
[2022-06-28] MEDS ORDERED: ceFAZolin 1,000 MG in SODIUM CHLORIDE 0.9% 1,000 ML IRRIGATION ONE (14:02)
[2022-06-28] MEDS ORDERED: LACTATED RINGERS 1,000 ML IV ONE (15:22)
[2022-06-28 15:46] VITALS: TEMP 98
[2022-06-28] MEDS ORDERED: ONDANSETRON 4 MG/2 ML VIAL IVP ONE (15:57)
--- NOTE | 2022-06-28 16:00 | P.OP ---
Date of Procedure: 06/28/22 Preoperative Diagnosis: 1. Left Achilles tendon rupture 2. Calcaneal spur left Postoperative Diagnosis: 1. Same 2. Same Procedure(s) Performed: 1. Secondary repair of left Achilles tendon 2. Flexor hallucis longus tendon transfer left 3. Gastroc recession left 4. Excision of calcaneal spur left Implants: Arthrex Achilles Speedbridge Arthrex 8 x 12 mm interference screw Anesthesia: ALEXIS Surgeon: Matty Appiah Estimated Blood Loss (ml): 5 Pathology: none sent Condition: stable Disposition: PACU Description of Procedure: Prior to the patient being brought to the operating room, anesthesia administered nerve block on the surgical extremity. Once completed, the patient was taken into the operating room. Timeout was taken to confirm correct patient identifiers, correct laterality of surgery, and correct procedure. When all staff in the room were in agreement with the timeout, the patient was induced and placed under general anesthesia. The patient was then placed in the prone position on the operating room table. Appropriate padding was placed beneath the patient's face as well as in the thoracic area. Once anesthesia was satisfied with the patient positioning, a well-padded tourniquet was placed on the thigh. Then the leg was prepped and draped in the usual manner. The leg was exsanguinated and the tourniquet inflated to 250 mmHg. Attention was directed over the posterior aspect of the leg, where the gastroc recession was performed. A linear midline incision was made distal to the gastroc muscle belly. The incision was deepened down to the subcutaneous layer careful to identify, avoid, and retract any neurovascular structures and cauterize any bleeding vessels. Blunt dissection was carried down to level the deep fascia. The fascia was incised and then bluntly dissected off the gastroc aponeurosis. A transverse incision was made through the aponeurosis from medial to lateral. Once completed the ankle was dorsiflexed and a visible gap. And the aponeurosis, indicating a full release. The wound is thoroughly irrigated. The subcutaneous layer was closed with 4-0 Vicryl. And skin closure done with octaviano. Then attention was directed over the Achilles insertion. A curvilinear incision was made starting in the medial side of the Achilles tendon then curving posteriorly over the insertion point. The incision was deepened down to the subcutaneous layer, careful to identify, avoid, and retract any neurovascular structures and cauterize any bleeding vessels the skin and subcutaneous layers were dissected in a full-thickness fashion off the Achilles tendon. There is a complete rupture of the Achilles tendon from the insertion of the calcaneus with 3-4 cm of proximal retraction. The distal stump was calcific and thickened. Any abnormal tissue in the Achilles tendon insertion was also sharply debrided. Once that was completed attention was directed to the posterior calcaneus where there was a large calcaneal spur. An osteotome was used to remove all the abnormal bony growth in the posterior calcaneus. This also allowed for exposure the bone to help facilitate the reattachment of the Achilles tendon. The Achilles tendon was retracted and then the deep fascia over the flexor hallucis longus muscle belly was incised and divided to expose the muscle. The muscle was identified and then followed to the tendon going into the medial compartment. The great toe and ankle were plantar flexed to allow for as much tenderness possible and then the tendon was carefully transected and delivered into the surgical field. A whipstitch using #2 FiberWire was then used on the distal end of the tendon. Then a large wire was placed on the superior aspect of the calcaneal body near the Achilles insertion. The wire was advanced plantarly and distally to avoid the tuberosity. An 8.5 mm reamer was then placed over the guidewire and drilled through the calcaneal body through the plantar surface of the bone. The wire was left in place and the ends of the stitch on the tendon were passed through the eyelet and then the pin was pulled through the hole the suture on the bottom of the foot. Then with the ankle in neutral position tension was placed on the suture bringing the flexor hallucis longus tendon into the drill hole the calcaneus once proper tensioning was achieved an 8 mm interference screw was inserted and the drill hole locking the tendon in place. Dorsiflexion the ankle indicated good tension on the muscle belly and tendon. The area was thoroughly irrigated with sterile saline. The distal end of the Achilles tendon was then grasped and pulled distally while holding the ankle at 90. It was brought into contact at the calcaneus to melanie the insertion point. A transverse line was made and marking the insertion point. Then eduardo were made for the drill holes for the anchoring system. The holes were done medial and lateral and approximate 1 cm from the melanie. A total 4 holes were made. All holes were then tapped. Utilizing the Arthrex PARS jig, the sutures were placed through holes one through 5. Sutures 3 and 4 were used to pass the ends of suture #2 from medial to lateral and lateral to medial to achieve the locking stitch. A large forceps was then used to grasp the distal end of the tendon to bring her back to the insertion point. The anchors with the sutures attached were placed in the most superior holes. Anchors were advanced down to proper depth. With the Achilles tendon pulled distally to the attachment point line, the suture was passed through the medial and lateral aspects of the tendon and pulled through. Then the [place] were cut and tension was placed on the suture down to the attachment point. Utilizing one suture from each anchor, as well as the 3 suture ends from the proximal repair area, the ends were pulled through the 4.75 swivel lock anchor which were then aligned with their corresponding drill holes. Utilizing proper tensioning techniques and keeping tension on the Achilles tendon to hold the near the insertion point, the anchor was inserted burying the suture within the calcaneus and locking in place. This was repeated for the opposite side. Once completed the ankle was taken through range of motion to test the integrity of the attachment point. It was found to be firmly attached to the posterior aspect of the calcaneus. All the extra suture was then cut flush with or anchors. Any thickened Achilles tendon was also sharply removed at this point. Then utilizing 3-0 Monocryl, the muscle belly of the flexor hallucis longus was sewn to the underside of the Achilles tendon. The area was thoroughly irrigated with sterile saline. The subcutaneous layer was closed with 4-0 Monocryl and skin closure done with octaviano. Both incisions were covered with an Arthrex jumpstart dressing. A dry bulky dressing was then applied to the leg. The tourniquet was released and capillary refill return to all digits on the foot. The patient was then placed in a well-padded, well molded plaster posterior mold/sugar tong splint. The ankle was held at slight plantarflexion until the splint was fully dried. Then the patient was rolled back to the transfer table. Anesthesia was reversed and he was non-traumatically extubated. The patient tolerated the above procedure and anesthesia well, and went to recovery with vital signs stable.
[2022-06-28 16:02] LABS: Glucose,Whole Blood 130 mg/dL (70-110)
--- NOTE | 2022-06-28 16:33 | P.ANPRN ---
Procedure Note - Anesthesia - Nerve Block Performed Left Popliteal Single Time Out Performed: Yes (1213) Date of Procedure: 06/28/22 Procedure Start Time: 12:14 Procedure Stop Time: :19 Location of Patient: PreOp Indication: Acute Post-Operative Pain, Requested by Surgeon Specifically requested for management of pain by DrFredy: Matty Appiah Sedation Type: Sedate with meaningful contact maintained Preparation: Sterile Prep Position: Supine Catheter: None Needle Types: Pajunk Needle Gauge: 21 Ultrasound used to visualize needle placement: Yes Ultrasound used to observe medication spread: Yes Injectate: 0.5% Ropivacaine (see comment for volume) (15cc + 5cc nacl pf) Blood Aspirated: No Pain Paresthesia on Injection Noted: No Resistance on Injection: Normal Image Stored and Saved: Yes Events: Uneventful and Well Tolerated
--- NOTE | 2022-06-28 16:34 | P.ANPRN ---
Procedure Note - Anesthesia - Nerve Block Performed Left Adductor Canal Single Time Out Performed: Yes (1213) Date of Procedure: 06/28/22 Procedure Start Time: 12:20 Procedure Stop Time: :24 Location of Patient: PreOp Indication: Acute Post-Operative Pain, Requested by Surgeon Specifically requested for management of pain by DrFredy: Matty Appiah Sedation Type: Sedate with meaningful contact maintained Preparation: Sterile Prep Position: Supine Catheter: None Needle Types: Pajunk Needle Gauge: 21 Ultrasound used to visualize needle placement: Yes Ultrasound used to observe medication spread: Yes Injectate: 0.5% Ropivacaine (see comment for volume) (15cc + 5cc nacl pf) Blood Aspirated: No Pain Paresthesia on Injection Noted: No Resistance on Injection: Normal Image Stored and Saved: Yes Events: Uneventful and Well Tolerated
[2022-06-28 17:02] VITALS: BP 147/77; PULSE 77; RESP 18
== END 2022-06-28 17:24 | disposition home or self-care (01) ==
LOC: OR 11:36
PROVIDERS: ATTEND Podiatrist
DX: S86.012A Strain of left Achilles tendon, initial encounter (principal); M77.32 Calcaneal spur, left foot; G89.18 Other acute postprocedural pain; G47.33 Obstructive sleep apnea (adult) (pediatric); E11.9 Type 2 diabetes mellitus without complications; K76.0 Fatty (change of) liver, not elsewhere classified; K21.9 Gastro-esophageal reflux disease without esophagitis; Z79.899 Other long term (current) drug therapy; Z82.49 Family history of ischemic heart disease and other diseases of the circulatory system; Z86.59 Personal history of other mental and behavioral disorders; W18.40XA Slipping, tripping and stumbling without falling, unspecified, initial encounter
CPT/HCPCS: 64447; 64445; 76942; 28200; 27691; 27687; 28119; C1713 ×3; J2250; J0330; J1100; J2710; J0690 ×2; J2405; J3010; J2795; J2370; J2704; J1790; J2001

== ENCOUNTER → 2022-11-23 | Outpatient (CLI) | payer BC ==
--- NOTE | 2022-11-24 07:07 | MR ---
EXAMINATION TYPE: MR foot LT wo/w con DATE OF EXAM: 11/23/2022 COMPARISON: Left calcaneal x-ray November 14, 2022 HISTORY: LT [facility] SURGERY AUG 2022, WENT TO THERAPY AND FOUND A BLISTER BOTTOM OF HEEL, NOW OPEN WOUND, CONTRAST: Standard multiplanar, multisequence MRI departmental protocol images were obtained without contrast a nd with 12 mL intravenous Gadavist gadolinium contrast. FINDINGS: Artifact from surgical change or fixating screws in the posterior calcaneus is now present. The repaired Achilles tendon is intact with some thickening and slight increased signal approximatel y 5 cm from calcaneal insertion. There is additional more superficial intact tendon seen running thro ugh Kager's fat pad. Persistent small to moderate inferior calcaneal spurring. There is slight break or wound injury along the plantar surface medial aspect just inferior to the calcaneus axial image 1 reference corresponding to sagittal image 13. There is no significant edema or enhancement at this le brielle. Bone marrow signal intensity of the adjacent calcaneus is maintained without abnormal enhancemen t or edema. There is mild subcutaneous edema along the lateral and medial malleoli of the distal ankle and mild c utaneous edema laterally and along the dorsal surface of the left midfoot. Normal sinus tarsi fat is seen. The visualized articulations in the midfoot and forefoot are grossly unremarkable. IMPRESSION: Tiny skin ulcer without MRI evidence for acute osteomyelitis in the adjacent calcaneus. S uccessful intact surgical repair of the Achilles tendon noted.
== END | disposition home or self-care (01) ==
LOC: RADMRIMAIN 14:25
PROVIDERS: ATTEND Nurse Practitioner Family
DX: L97.522 Non-pressure chronic ulcer of other part of left foot with fat layer exposed (principal); E11.621 Type 2 diabetes mellitus with foot ulcer
CPT/HCPCS: 73720; A9585

== ENCOUNTER 2022-12-14 22:07 | Inpatient (IN) | payer BC ==
[2022-12-14] MEDS ORDERED: VANCOMYCIN IV PER PHARMACY 1 EACH MISC MISCELLANE PRN (22:49)
[2022-12-14] MEDS ORDERED: CEFEPIME 2 GM in SODIUM CHLORIDE 0.9% 100 ML IVPB STA (22:49)
[2022-12-14] MEDS ORDERED: VANCOMYCIN 1,750 MG in SODIUM CHLORIDE 0.9% 500 ML 500 ML IVPB STA (22:55)
--- NOTE | 2022-12-14 23:01 | ED ---
General Adult HPI - General Chief complaint: Wound/Laceration Stated complaint: FOOT WOUND Time Seen by Provider: 12/14/22 22:13 Source: patient Mode of arrival: wheelchair Limitations: no limitations - History of Present Illness Initial comments: Dictation was produced using [employer] dictation software. please excuse any grammatical, word or spelling errors. Chief Complaint: 57-year-old male presents to the emergency department with worsening chronic left heel wound History of Present Illness: Patient is a 57-year-old male. He suffers from chronic left heel wound. Wound has been managed at the [facility] by nurse practitioner. The last 2-3 days his wound became much more malodorous with discharge and surrounding redness. Patient has history of chronic lower extremity neuropathy. Denies any sensation to his legs. Patient is a diabetic. Family member is in the medical field recommended patient come to the ER. Patient denies any fever, chills or constitutional symptoms. He has been worked up for possible underlying osteomyelitis over his workups have been so far negative. The ROS documented in this emergency department record has been reviewed and confirmed by me. Those systems with pertinent positive or negative responses have been documented in the HPI. All other systems are other negative and/or noncontributory. PHYSICAL EXAM: General Impression: Alert and oriented x3, not in acute distress HEENT: Normocephalic atraumatic, extra-ocular movements intact, pupils equal and reactive to light bilaterally, mucous membranes moist. Cardiovascular: Heart regular rate and rhythm Chest: Able to complete full sentences, no retractions, no tachypnea Musculoskeletal: Pulses present and equal in all extremities, no peripheral edema Motor: no focal deficits noted Neurological: CN II-XII grossly intact, no focal motor or sensory deficits noted Skin: Intact with no visualized rashes Psych: Normal affect and mood Left lower extremity: Large 3 x 3 cm cavitating left heel wound. Right heel is barely palpable, malodorous with surrounding erythema ED course: 57-year-old male presents with acute on chronic worsening wound. Patient does have features worrisome for wet gangrene. Patient is high risk due to history of diabetes. Patient will need coverage for Pseudomonas. Wound culture is ordered. Patient started on antibiotics. Nursing notes and chart review was performed Was pt. sent in by a medical professional or institution (, PA, NURSE OBGYN, urgent care, hospital, or intermediate...) When possible be specific @ -No Did you speak to anyone other than the patient for history (EMS, parent, family, police, friend...)? What history was obtained from this source @ -No Did you review nursing and triage notes (agree or disagree)? Why? @ -I reviewed and agree with nursing and triage notes Were old charts reviewed (outside hosp., previous admission, EMS record, old EKG, old radiological studies, urgent care reports/EKG's, intermediate records)? Report findings @ -No old charts were reviewed Differential Diagnosis (chest pain, altered mental status, abdominal pain women, abdominal pain men, vaginal bleeding, musculoskeletal, weakness, fever, dyspnea, syncope, headache, dizziness, GI bleed, back pain, seizure, CVA, palpatations, mental health)? @ -Osteomyelitis, cellulitis, necrotizing fasciitis EKG interpreted by me (3pts min.). @ -None done X-rays interpreted by me (1pt min.). @ -None done CT interpreted by me (1pt min.). @ -None done U/S interpreted by me (1pt. min.). @ -None done What testing was considered but not performed or refused? (CT, X-rays, U/S, labs)? Why? @ -None What meds were considered but not given or refused? Why? @ -None Did you discuss the management of the patient with other professionals (professionals i.e. , PA, NURSE OBGYN, lab, RT, psych nurse, social media project manager, publications designer, teacher, youth liaison officer, business case analyst)? Give summary @ -Case discussed with Dr. Chakraborty for admission Was smoking cessation discussed for >3mins.? @ -No Was critical care preformed (if so, how long)? @ -No Were there social determinants of health that impacted care today? How? (Homelessness, low income, unemployed, alcoholism, drug addiction, transportation, low edu. Level, literacy, decrease access to med. care, prison, rehab)? @ -No Was there de-escalation of care discussed even if they declined (Discuss DNR or withdrawal of care, Hospice)? DNR status @ -No What co-morbidities impacted this encounter? (DM, HTN, Smoking, COPD, CAD, Cancer, CVA, ARF, Chemo, Hep., AIDS, mental health diagnosis, sleep apnea, morbid obesity)? @ -None Was patient admitted / discharged? Hospital course, mention meds given and route, prescriptions, significant lab abnormalities, going to OR and other pertinent info. @ -57-year-old male presents emergency department with worsening chronic wound to his left heel. Concerns for worsening infection. Laboratory evaluation obtained. Mild leukocytosis. Elevated inflammatory markers. Hyponatremia 131. Patient benefit inpatient admission with IV antibiotics and further care. Undiagnosed new problem with uncertain prognosis? @ -No Drug Therapy requiring intensive monitoring for toxicity (Heparin, Nitro, Insulin, Cardizem)? @ -No Were any procedures done? @ -No Diagnosis/symptom? Acute, or Chronic, or Acute on Chronic? Uncomplicated (without systemic symptoms) or Complicated (systemic symptoms)? @ -1. Acute on chronic gangrenous left heel wound Side effects of treatment? @ -No Exacerbation, Progression, or Severe Exacerbation? @ -No Poses a threat to life or bodily function? How? (Chest pain, [place], [place], pneumonia, PE, COPD, DKA, ARF, appy, cholecystitis, CVA, Diverticulitis, Homicidal, Suicidal, threat to staff... and all critical care pts) @ -yes - Related Data Home Medications Medication Instructions Recorded Confirmed Insulin Aspart Prot/Insuln Asp 70 unit SQ BID-W/MEALS 03/31/21 06/28/22 [NovoLOG MIX 70-30 Flexpen] Pregabalin [Lyrica] 100 mg PO HS 03/31/21 06/28/22 metFORMIN HCL [Glucophage] 1,000 mg PO BID 03/31/21 06/28/22 rOPINIRole HCL [Requip] 2 - 4 mg PO HS 03/31/21 06/28/22 sitaGLIPtin [Januvia] 50 mg PO DAILY 05/09/22 06/28/22 Propranolol [Inderal] 10 mg PO TID 06/26/22 06/28/22 Previous Rx's Medication Instructions Recorded HYDROcodone/APAP 7.5-325MG [[place] 1 tab PO Q4-6H PRN #30 tab 06/28/22 7.5-325] Allergies Allergy/AdvReac Type Severity Reaction Status Date / Time No Known Allergies Allergy Verified 12/14/22 22:14 Review of Systems ROS Statement: Those systems with pertinent positive or pertinent negative responses have been documented in the HPI. ROS Other: All systems not noted in ROS Statement are negative. Past Medical History Past Medical History: Diabetes Mellitus, Liver Disease, Musculoskeletal Disorder, Sleep Apnea/CPAP/BIPAP Additional Past Medical History / Comment(s): Restless leg syndrome, hx nephritis as a child, hx. cirrhosis, varices, "fatty liver", injury to left achilles on Sat-wearing boot, normally uses CPAP History of Any Multi-Drug Resistant Organisms: None Reported Past Surgical History: No Surgical Hx Reported Additional Past Surgical History / Comment(s): multiple EGD's w/variceal ligation, colonoscopies Past Anesthesia/Blood Transfusion Reactions: Postoperative Nausea & Vomiting (PONV) Past Psychological History: No Psychological Hx Reported Smoking Status: Never smoker Past Alcohol Use History: Rare Past Drug Use History: None Reported - Past Family History Father Family Medical History: Cancer Additional Family Medical History / Comment(s): Lung cancer. Mother Family Medical History: Cancer Additional Family Medical History / Comment(s): Breast cancer. General Exam Limitations: no limitations Course Vital Signs 12/14/22 22:11 Temperature 99.4 F Pulse Rate 89 Respiratory 18 Rate Blood Pressure 148/71 O2 Sat by Pulse 98 Oximetry Medical Decision Making - Lab Data Result diagrams: 12/14/22 23:06 12/14/22 23:06 Lab Results 12/14/22 12/14/22 12/14/22 Range/Units 23:06 23:06 23:06 WBC 11.0 H (3.8-10.6) k/uL RBC 4.41 (4.30-5.90) m/uL Hgb 13.4 (13.0-17.5) gm/dL Hct 38.8 L (39.0-53.0) % MCV 88.2 (80.0-100.0) fL MCH 30.5 (25.0-35.0) pg MCHC 34.6 (31.0-37.0) g/dL RDW 13.7 (11.5-15.5) % Plt Count 178 (150-450) k/uL MPV 8.4 Neutrophils % 80 % Lymphocytes % 11 % Monocytes % 6 % Eosinophils % 1 % Basophils % 0 % Neutrophils # 8.7 H (1.3-7.7) k/uL Lymphocytes # 1.2 (1.0-4.8) k/uL Monocytes # 0.6 (0-1.0) k/uL Eosinophils # 0.2 (0-0.7) k/uL Basophils # 0.0 (0-0.2) k/uL ESR 85 H (0-15) mm/hr PT 11.0 (9.0-12.0) sec INR 1.1 (<1.2) APTT 21.9 L (22.0-30.0) sec Sodium 131 L (137-145) mmol/L Potassium 4.5 (3.5-5.1) mmol/L Chloride 98 (98-107) mmol/L Carbon Dioxide 24 (22-30) mmol/L Anion Gap 9 mmol/L BUN 15 (9-20) mg/dL Creatinine 0.70 (0.66-1.25) mg/dL Est GFR (CKD-EPI)AfAm >90 (>60 ml/min/1.73 sqM) Est GFR (CKD-EPI)NonAf >90 (>60 ml/min/1.73 sqM) Glucose 284 H (74-99) mg/dL Calcium 8.5 (8.4-10.2) mg/dL Total Bilirubin 0.8 (0.2-1.3) mg/dL AST 27 (17-59) U/L ALT 26 (4-49) U/L Alkaline Phosphatase 183 H (38-126) U/L C-Reactive Protein 6.5 H (<1.0) mg/dL Total Protein 8.2 (6.3-8.2) g/dL Albumin 3.6 (3.5-5.0) g/dL Disposition Clinical Impression: Gangrene Disposition: ADMITTED IP TO THIS [facility] Condition: Fair Referrals: Conrado Heck MD [Primary Care Provider] - 1-2 days Decision Time: 00:51
[2022-12-14 23:45] LABS: ALT 26 U/L (4-49); AST 27 U/L (17-59); African American GFR (CKD) >90 (>60 ml/min/1.73 sqM); Albumin 3.6 g/dL (3.5-5.0); Alkaline Phosphatase 183 U/L (38-126); Anion Gap 9 mmol/L; Blood Urea Nitrogen 15 mg/dL (9-20); C Reactive Protein 6.5 mg/dL (<1.0); Calcium 8.5 mg/dL (8.4-10.2); Carbon Dioxide 24 mmol/L (22-30); Chloride 98 mmol/L (98-107); Glucose 284 mg/dL (74-99); Non-African American GFR(CKD) >90 (>60 ml/min/1.73 sqM); Potassium 4.5 mmol/L (3.5-5.1); Sodium 131 mmol/L (137-145); Total Bilirubin 0.8 mg/dL (0.2-1.3); Total Protein 8.2 g/dL (6.3-8.2)
[2022-12-14 23:49] LABS: INR 1.1 (<1.2); Partial Thromboplastin Time 21.9 sec (22.0-30.0)
[2022-12-15] LABS: Basophils % (A) 0 %; Eosinophils # (A) 0.2 k/uL (0-0.7); Eosinophils % (A) 1 %; HCT 38.8 % (39.0-53.0); HGB 13.4 gm/dL (13.0-17.5); Lymphocytes # (A) 1.2 k/uL (1.0-4.8); Lymphocytes % (A) 11 %; MCH 30.5 pg (25.0-35.0); MCHC 34.6 g/dL (31.0-37.0); MCV 88.2 fL (80.0-100.0); Mean Platelet Volume 8.4; Monocytes # (A) 0.6 k/uL (0-1.0); Monocytes % (A) 6 %; Neutrophils # (A) 8.7 k/uL (1.3-7.7); Neutrophils % (A) 80 %; Platelet Count 178 k/uL (150-450); RBC 4.41 m/uL (4.30-5.90); RDW 13.7 % (11.5-15.5)
[2022-12-15 00:22] LABS: Erythrocyte Sedimentation Rate 85 mm/hr (0-15)
[2022-12-15] MEDS: PREGABALIN 100 MG CAP PO SCH ×2 (00:28→20:54)
[2022-12-15] MEDS ORDERED: NALOXONE 0.4 MG/ML 1 ML VIAL IV PRN (01:00)
[2022-12-15] MEDS ORDERED: SODIUM CHLORIDE 0.9% 1,000 ML IV SCH (01:00)
--- NOTE | 2022-12-15 04:34 | P.HPIM ---
History of Present Illness H&P Date: 12/15/22 Chief Complaint: left foot ulcer 57 year old male with DM , BELL he is coming in today due to worsening chronic left heel ulcer .he had the wound since September of this year 2022, and is following with wound clinic where he sees [facility] FOREMAN. she saw him this week , where she did some wound debridement , and took cultures, as he just finished a course of antibiotics . however since this procedure and over the past 2-3 days , he noticed malodorus drainage , increase erythema and swelling around the wound, he does not feel pain due to neuropathy. denies any fever, chills, chest pain , SOB, nausea vomiting, changes in bowel or urinary habits. he did not receive any updated results from his doc regarding the new cultures taken few days ago . erythema confined to the ankle and base of the left foot. Review of Systems Pertinent positives as noted in HPI. All other systems were reviewed and are negative Past Medical History Past Medical History: Diabetes Mellitus, Liver Disease, Musculoskeletal Disorde r, Sleep Apnea/CPAP/BIPAP Additional Past Medical History / Comment(s): Restless leg syndrome, hx nephritis as a child, hx. cirrhosis, varices, "fatty liver", injury to left a chilles on Sat-wearing boot, normally uses CPAP History of Any Multi-Drug Resistant Organisms: None Reported Past Surgical History: No Surgical Hx Reported Additional Past Surgical History / Comment(s): multiple EGD's w/variceal ligation, colonoscopies Past Anesthesia/Blood Transfusion Reactions: Postoperative Nausea & Vomiting (PONV) Past Psychological History: No Psychological Hx Reported Smoking Status: Never smoker Past Alcohol Use History: Rare Past Drug Use History: None Reported - Past Family History Father Family Medical History: Cancer Additional Family Medical History / Comment(s): Lung cancer. Mother Family Medical History: Cancer Additional Family Medical History / Comment(s): Breast cancer. Medications and Allergies Home Medications Medication Instructions Recorded Confirmed Type Insulin Aspart Prot/Insuln Asp 70 unit SQ BID-W/MEALS 03/31/21 06/28/22 History [NovoLOG MIX 70-30 Flexpen] Pregabalin [Lyrica] 100 mg PO HS 03/31/21 06/28/22 History metFORMIN HCL [Glucophage] 1,000 mg PO BID 03/31/21 06/28/22 History rOPINIRole HCL [Requip] 2 - 4 mg PO HS 03/31/21 06/28/22 History sitaGLIPtin [Januvia] 50 mg PO DAILY 05/09/22 06/28/22 History Propranolol [Inderal] 10 mg PO TID 06/26/22 06/28/22 History HYDROcodone/APAP 7.5-325MG [[place] 1 tab PO Q4-6H PRN #30 tab 06/28/22 Rx 7.5-325] Allergies Allergy/AdvReac Type Severity Reaction Status Date / Time No Known Allergies Allergy Verified 12/14/22 22:14 Physical Exam Vitals: Vital Signs Temp Pulse Resp BP Pulse Ox 12/14/22 22:11 99.4 F 89 18 148/71 98 Intake and Output 12/14/22 12/14/22 12/15/22 14:59 22:59 06:59 Other: Weight 113.398 kg Constitutional: No acute distress, conversant, pleasant Eyes: Anicteric sclerae, moist conjunctiva, Pupils equal round reactive to light ENMT: NC/AT Oropharynx clear, no erythema, or exudates Neck: Supple, no masses, or JVD No carotid bruits No thyromegaly Lungs: Clear to auscultation Clear to percussion Normal respiratory effort, no accessory muscle use Cardiovascular: Heart regular in rate and rhythm, No murmurs, gallops, or rubs No peripheral edema Abdominal: Soft Nontender, no guarding, rebound or rigidity Abdomen moving with respiration Normoactive bowel sounds No hepatomegaly, No splenomegaly No palpable mass No abdominal wall hernia noted Skin: surgical dressing inplace clean and intact, just placed in the ED, i reviewed pictures of the wound, looks swollen with surrounding erythema and induration .erythema extending to lower third of the leg. Extremities: No digital cyanosis No clubbing Pedal pulses weak and symmetrical, capillary refill immediate Radial pulses intact and symmetrical No calf tenderness Psychiatric: Alert and oriented to person, place and time Appropriate affect fair judgment Neuro Muscles Strength 5/5 in all 4 extremities Sensation to light touch grossly present throughout Cranial nerves II-XII grossly intact Lymphatics: no palpable cervical or supraclavicular lymph nodes Results CBC & Chem 7: 12/14/22 23:06 12/14/22 23:06 Labs: Abnormal Lab Results - Last 24 Hours (Table) 0412/14/22 12/14/22 Range/Units 23:06 23:06 23:06 WBC 11.0 H (3.8-10.6) k/uL Hct 38.8 L (39.0-53.0) % Neutrophils # 8.7 H (1.3-7.7) k/uL ESR 85 H (0-15) mm/hr APTT 21.9 L (22.0-30.0) sec Sodium 131 L (137-145) mmol/L Glucose 284 H (74-99) mg/dL Alkaline Phosphatase 183 H (38-126) U/L C-Reactive Protein 6.5 H (<1.0) mg/dL Assessment and Plan Assessment: 57 year old male , coming in with worsening chronic left heel wound , with increase erythema , swelling and malodorus drainage , I discussed the case with ED doc, and I accepted the admission for IV antibiotics and surgical consultation for debridement and management of diabetic foot ulcer, with anticipated length of stay > 2 midnights infected diabetic foot ulcer follow up cultures tylenol for fever, Vancomcin dosing by pharma received cefepime in the ED, I will discontinue and switch to Zosyn 3.375 IVPB Q8hrs for better coverage (anerobs and pseudomonus ) pain control with norco PO tab PRN blood work showed elevated CRP 6.5 , WBC 11 , renal function unremarkable BUN 15 , cr 0.7, Na 131, K 4.5 normal saline 75 cc per hour check foot xray , rule out osteo check ESR DM insulin sliding scale DVT PPX heparin sc tid 5000 units full code
[2022-12-15 06:17] LABS: Glucose,Whole Blood 190 mg/dL (70-110)
[2022-12-15] MEDS: INSULIN ASPART (NovoLOG) 100 UNIT/ML VIAL SQ SCH ×4 (06:22→20:54)
[2022-12-15] MEDS: SODIUM CHLORIDE 0.9% 1,000 ML IV SCH ×2 (06:23→21:09)
--- NOTE | 2022-12-15 08:57 | XR ---
EXAMINATION TYPE: XR foot limited LT DATE OF EXAM: 12/15/2022 8:47 AM INDICATION: Patient age:Male; 57 years old; Reason for study: heel diabetic foot ulcer; PHH. COMPARISON: MR left foot 11/23/2022, left calcaneus radiograph 11/14/2022 TECHNIQUE: The left foot was examined in the AP and lateral projections. FINDINGS: No evidence of any acute osseous pathology. Similar lucency within the posterior aspect of the calcan eus. No evidence for osseous erosion. There is again area of ulceration along the plantar aspect of t he posterior foot just superficial to the calcaneus. There is subcutaneous edema with foci of gas khloe ng the posterior soft tissues to the calcaneus extending into Kagers fat pad. Joints are preserved. 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 IMPRESSION: 1. No evidence of acute fracture or osseous erosion. 2. Similar ulceration along the plantar aspect of the posterior foot with new regions of soft tissue gas posterior to the calcaneus and extending into Kagers fat pad with associated soft tissue edema. Findings are concerning for infectious process.
[2022-12-15] MEDS: HEPARIN SODIUM,PORCINE/PF 5,000 UNIT/0.5 ML SYRINGE SQ SCH ×3 (08:59→23:31)
[2022-12-15] MEDS: PIPERACILLIN-TAZOBACTAM 3.375 GM in SODIUM CHLORIDE 0.9% 100 ML IVPB SCH ×3 (09:00→23:31)
[2022-12-15] MEDS: VANCOMYCIN 1,750 MG in SODIUM CHLORIDE 0.9% 500 ML 500 ML IVPB SCH ×3 (09:00→23:31)
[2022-12-15 11:01] LABS: Erythrocyte Sedimentation Rate 84 mm/Hr (0-20)
[2022-12-15 11:13] LABS: Basophils # (A) 0.04 X 10*3/uL (0.00-0.10); Basophils % (A) 0.4 %; Eosinophils # (A) 0.11 X 10*3/uL (0.04-0.35); Eosinophils % (A) 1.2 %; HCT 35.8 % (39.6-50.0); HGB 12.2 g/dL (13.0-17.0); Immature Grans, Automated 0.4 %; Lymphocytes # (A) 1.49 X 10*3/uL (0.90-5.00); Lymphocytes % (A) 16.2 %; MCH 30.1 pg (27.0-32.0); MCHC 34.1 g/dL (32.0-37.0); MCV 88.4 fL (80.0-97.0); Mean Platelet Volume 11.4 fL (9.5-12.2); Monocytes # (A) 1.05 X 10*3/uL (0.20-1.00); Monocytes % (A) 11.4 %; NRBC Per 100 WBC 0 /100 WBCS (0.0-0.0); Neutrophils # (A) 6.48 X 10*3/uL (1.80-7.70); Neutrophils % (A) 70.4 %; Platelet Count 171 X 10*3/uL (140-440); RBC 4.05 X 10*6/uL (4.40-5.60); RDW 13.9 % (11.5-14.5); WBC 9.21 X 10*3/uL (4.50-10.00)
[2022-12-15 11:29] LABS: African American GFR (CKD) 114.1 (60.0-200.0); Anion Gap 10.9 mmol/L (10.00-18.00); BUN/Creat Ratio 17.13 Ratio (12.00-20.00); Blood Urea Nitrogen 13.7 mg/dL (9.0-27.0); Calcium 8.5 mg/dL (8.7-10.3); Carbon Dioxide 23.1 mmol/L (20.0-27.5); Non-African American GFR(CKD) 98.5 (60.0-200.0); Potassium 4.1 mmol/L (3.5-5.5)
[2022-12-15 11:30] LABS: Glucose,Whole Blood 197 mg/dL (70-110)
[2022-12-15 15:40] LABS: Glucose,Whole Blood 267 mg/dL (70-110)
[2022-12-15] MEDS: COLLAGENASE 250 UNIT/GM OINTMENT 30 GM TUBE TOPICAL SCH (17:51)
[2022-12-15 20:44] LABS: Glucose,Whole Blood 279 mg/dL (70-110)
--- NOTE | 2022-12-15 23:18 | P.CONS ---
History of Present Illness - Reason for Consult Consult date: 12/15/22 - History of Present Illness Patient is a 57-year-old male with past medical history significant for diabetes mellitus patient did mention he did have a Achilles tendon surgery afterwards the patient has developed a wound to the left heel area back in September 2022 for the patient has been following at [facility] care [place] patient recently did have debridement of the wound done by nurse practitioner and apparently patient did have some hospital over the last few days patient noticed to having increasing foul-smelling drainage increasing erythema and swelling around the wound for the patient presented to hospital patient did have diabetic neuropathy has denies pain to the wound area patient on presentation to the hospital did have a low-grade fever of 99.4 F patient did have a white count of 11,000 with a left shift kidney function has been normal he did have elevated sed rate of 85 CRP of 6.5 local cultures obtained which are currently pending patient did have x-ray of the foot no evidence of acute fracture similar ulceration on the plantar aspect of the posterior foot with new regions of soft tissue gas posterior to the calcaneus finding concerning for infectious process patient was started on vancomycin and Zosyn consult placed to vascular surgery and infectious disease for further management of antibiotic therapy Past Medical History Past Medical History: Diabetes Mellitus, Liver Disease, Musculoskeletal Disorder, Sleep Apnea/CPAP/BIPAP Additional Past Medical History / Comment(s): Restless leg syndrome, hx nephrit is as a child, hx. cirrhosis, varices, "fatty liver", injury to left achilles on Sat-wearing boot, normally uses CPAP History of Any Multi-Drug Resistant Organisms: None Reported Past Surgical History: No Surgical Hx Reported Additional Past Surgical History / Comment(s): multiple EGD's w/variceal ligation, colonoscopies Past Anesthesia/Blood Transfusion Reactions: Postoperative Nausea & Vomiting (PONV) Past Psychological History: No Psychological Hx Reported Smoking Status: Never smoker Past Alcohol Use History: Rare Past Drug Use History: None Reported - Past Family History Father Family Medical History: Cancer Additional Family Medical History / Comment(s): Lung cancer. Mother Family Medical History: Cancer Additional Family Medical History / Comment(s): Breast cancer. Medications and Allergies Home Medications Medication Instructions Recorded Confirmed Type Insulin Aspart Prot/Insuln Asp 70 unit SQ BID 03/31/21 12/15/22 History [NovoLOG MIX 70-30 Flexpen] Pregabalin [Lyrica] 100 mg PO HS 03/31/21 12/15/22 History metFORMIN HCL [Glucophage] 1,000 mg PO BID 03/31/21 12/15/22 History rOPINIRole HCL [Requip] 4 mg PO HS 03/31/21 12/15/22 History Propranolol [Inderal] 10 mg PO HS 06/26/22 12/15/22 History Collagenase [Santyl Ointment] 1 applic TOPICAL DAILY 12/15/22 12/15/22 History Empagliflozin [Jardiance] 25 mg PO HS 12/15/22 12/15/22 History Ferrous Sulfate [Feosol] 325 mg PO HS 12/15/22 12/15/22 History Losartan Potassium [Cozaar] 25 mg PO HS 12/15/22 12/15/22 History Spironolactone 50 mg PO HS 12/15/22 12/15/22 History Allergies Allergy/AdvReac Type Severity Reaction Status Date / Time No Known Allergies Allergy Verified 12/15/22 07:37 Physical Exam Vitals: Vital Signs Temp Pulse Pulse Resp BP BP Pulse Ox 12/15/22 06:51 98.0 F 72 16 118/67 96 12/15/22 01:33 98 F 78 20 127/70 94 L 12/14/22 22:11 99.4 F 89 18 148/71 98 Intake and Output 12/14/22 12/15/22 12/15/22 22:59 06:59 14:59 Other: Weight 113.398 kg 113.398 kg Results CBC & Chem 7: 12/15/22 06:04 12/15/22 06:04 Labs: Abnormal Lab Results - Last 24 Hours (Table) 12/14/22 12/14/22 12/14/22 Range/Units 23:06 23:06 23:06 WBC 11.0 H (3.8-10.6) k/uL RBC (4.40-5.60) X 10*6/uL Hgb (13.0-17.0) g/dL Hct 38.8 L (39.0-53.0) % Neutrophils # 8.7 H (1.3-7.7) k/uL Monocytes # (0.20-1.00) X 10*3/uL ESR 85 H (0-15) mm/hr APTT 21.9 L (22.0-30.0) sec Sodium 131 L (137-145) mmol/L Glucose 284 H (74-99) mg/dL POC Glucose (mg/dL) (70-110) mg/dL Calcium (8.7-10.3) mg/dL Alkaline Phosphatase 183 H (38-126) U/L C-Reactive Protein 6.5 H (<1.0) mg/dL 12/15/22 12/15/22 12/15/22 Range/Units 06:04 06:04 06:14 WBC (3.8-10.6) k/uL RBC 4.05 L (4.40-5.60) X 10*6/uL Hgb 12.2 L (13.0-17.0) g/dL Hct 35.8 L (39.0-53.0) % Neutrophils # (1.3-7.7) k/uL Monocytes # 1.05 H (0.20-1.00) X 10*3/uL ESR 84 H (0-15) mm/hr APTT (22.0-30.0) sec Sodium 134 L (137-145) mmol/L Glucose 192 H (74-99) mg/dL POC Glucose (mg/dL) 190 H (70-110) mg/dL Calcium 8.5 L (8.7-10.3) mg/dL Alkaline Phosphatase (38-126) U/L C-Reactive Protein (<1.0) mg/dL 12/15/22 Range/Units 11:28 WBC (3.8-10.6) k/uL RBC (4.40-5.60) X 10*6/uL Hgb (13.0-17.0) g/dL Hct (39.0-53.0) % Neutrophils # (1.3-7.7) k/uL Monocytes # (0.20-1.00) X 10*3/uL ESR (0-15) mm/hr APTT (22.0-30.0) sec Sodium (137-145) mmol/L Glucose (74-99) mg/dL POC Glucose (mg/dL) 197 H (70-110) mg/dL Calcium (8.7-10.3) mg/dL Alkaline Phosphatase (38-126) U/L C-Reactive Protein (<1.0) mg/dL Microbiology - Last 24 Hours (Table) 12/14/22 23:06 Anaerobic Culture - Preliminary Foot - Left 12/14/22 23:06 Wound Culture - Preliminary Foot - Left Assessment and Plan Plan: 1patient was in the hospital with diabetic foot infection in this patient with nonhealing wound since September 2022 with evidence of infection failing outpatient oral antibiotic therapy we will need to cover for the polymicrobial larry usually associated with diabetic foot infection 2-with high clinical suspicious for osteomyelitis we will obtain bone scan 3-awaiting vascular surgery valuation debridement of the wound and deep cultures 4-local wound care with the Santyl followed by moist dressing change daily 5-patient to continue the vancomycin and Zosyn while watching his kidney function closely further adjustment of antibiotic on the basis of culture We will follow on clinical condition and cultures to further adjust medication if needed Thank you for this consultation we will follow the patient along with you Time with Patient: Greater than 30
[2022-12-16 06:12] LABS: Glucose,Whole Blood 218 mg/dL (70-110)
[2022-12-16] MEDS: INSULIN ASPART (NovoLOG) 100 UNIT/ML VIAL SQ SCH ×4 (06:27→21:01)
[2022-12-16] MEDS: SODIUM CHLORIDE 0.9% 1,000 ML IV SCH (06:29)
[2022-12-16 06:45] LABS: African American GFR (CKD) >90 (>60 ml/min/1.73 sqM); Non-African American GFR(CKD) >90 (>60 ml/min/1.73 sqM)
[2022-12-16] MEDS ORDERED: VANCOMYCIN TROUGH DUE 1 EACH MISC MISCELLANE ONE (07:00)
[2022-12-16] MEDS: VANCOMYCIN 1,750 MG in SODIUM CHLORIDE 0.9% 500 ML 500 ML IVPB SCH ×2 (08:27→17:26)
[2022-12-16] MEDS: PIPERACILLIN-TAZOBACTAM 3.375 GM in SODIUM CHLORIDE 0.9% 100 ML IVPB SCH ×2 (08:27→17:25)
[2022-12-16] MEDS: HEPARIN SODIUM,PORCINE/PF 5,000 UNIT/0.5 ML SYRINGE SQ SCH (08:28)
[2022-12-16] MEDS: COLLAGENASE 250 UNIT/GM OINTMENT 30 GM TUBE TOPICAL SCH (08:28)
--- NOTE | 2022-12-16 08:48 | P.GSCN ---
History of Present Illness Consult date: 12/16/22 Reason for Consult: Diabetic foot ulcer Requesting physician: Catrachita Carroll History of present illness: This patient has a long history of ulcer of the left heel. He is being treated in wound care. Currently Santyl as been utilized as well as periodic debridements. He was admitted at this time with increasing redness around the heel. Past Medical History Past Medical History: Diabetes Mellitus, Liver Disease, Musculoskeletal Disorder, Sleep Apnea/CPAP/BIPAP Additional Past Medical History / Comment(s): Restless leg syndrome, hx nephritis as a child, hx. cirrhosis, varices, "fatty liver", injury to left achilles on Sat-wearing boot, normally uses CPAP History of Any Multi-Drug Resistant Organisms: None Reported Past Surgical History: No Surgical Hx Reported Additional Past Surgical History / Comment(s): multiple EGD's w/variceal ligation, colonoscopies Past Anesthesia/Blood Transfusion Reactions: Postoperative Nausea & Vomiting (PONV) Past Psychological History: No Psychological Hx Reported Smoking Status: Never smoker Past Alcohol Use History: Rare Past Drug Use History: None Reported - Past Family History Father Family Medical History: Cancer Additional Family Medical History / Comment(s): Lung cancer. Mother Family Medical History: Cancer Additional Family Medical History / Comment(s): Breast cancer. Medications and Allergies Home Medications Medication Instructions Recorded Confirmed Type Insulin Aspart Prot/Insuln Asp 70 unit SQ BID 03/31/21 12/15/22 History [NovoLOG MIX 70-30 Flexpen] Pregabalin [Lyrica] 100 mg PO HS 03/31/21 12/15/22 History metFORMIN HCL [Glucophage] 1,000 mg PO BID 03/31/21 12/15/22 History rOPINIRole HCL [Requip] 4 mg PO HS 03/31/21 12/15/22 History Propranolol [Inderal] 10 mg PO HS 06/26/22 12/15/22 History Collagenase [Santyl Ointment] 1 applic TOPICAL DAILY 12/15/22 12/15/22 History Empagliflozin [Jardiance] 25 mg PO HS 12/15/22 12/15/22 History Ferrous Sulfate [Feosol] 325 mg PO HS 12/15/22 12/15/22 History Losartan Potassium [Cozaar] 25 mg PO HS 04/07/23 04/07/23 History Spironolactone 50 mg PO HS 12/15/22 12/15/22 History Allergies Allergy/AdvReac Type Severity Reaction Status Date / Time No Known Allergies Allergy Verified 12/15/22 07:37 Surgical - Exam Osteopathic Statement: *. No significant issues noted on an osteopathic structural exam other than those noted in the History and Physical/Consult. Vital Signs Temp Pulse Resp BP Pulse Ox 99.4 F 89 18 148/71 98 12/14/22 22:11 12/14/22 22:11 12/14/22 22:11 12/14/22 22:11 12/14/22 22:11 The patient has an about 3 x 3 cm ulcer on the plantar aspect of the left heel. There is more granulation then when the wound was seen a couple of weeks ago. There is less eschar. It is still about 0.7 cm in depth. There is redness on the posterior aspect of the heel tracking up to the Achilles tendon. Results - Labs 12/15/22 06:04 12/16/22 06:23 Abnormal Lab Results - Last 24 Hours (Table) 12/15/22 12/15/22 12/15/22 Range/Units 06:04 06:04 11:28 RBC 4.05 L (4.40-5.60) X 10*6/uL Hgb 12.2 L (13.0-17.0) g/dL Hct 35.8 L (39.6-50.0) % Monocytes # 1.05 H (0.20-1.00) X 10*3/uL ESR 84 H (0-20) mm/Hr Sodium 134 L (135-145) mmol/L Creatinine (0.66-1.25) mg/dL Glucose 192 H (70-110) mg/dL POC Glucose (mg/dL) 197 H (70-110) mg/dL Calcium 8.5 L (8.7-10.3) mg/dL 12/15/22 12/15/22 12/16/22 Range/Units 15:38 20:37 06:09 RBC (4.40-5.60) X 10*6/uL Hgb (13.0-17.0) g/dL Hct (39.6-50.0) % Monocytes # (0.20-1.00) X 10*3/uL ESR (0-20) mm/Hr Sodium (135-145) mmol/L Creatinine (0.66-1.25) mg/dL Glucose (70-110) mg/dL POC Glucose (mg/dL) 267 H 279 H 218 H (70-110) mg/dL Calcium (8.7-10.3) mg/dL 12/16/22 Range/Units 06:23 RBC (4.40-5.60) X 10*6/uL Hgb (13.0-17.0) g/dL Hct (39.6-50.0) % Monocytes # (0.20-1.00) X 10*3/uL ESR (0-20) mm/Hr Sodium (135-145) mmol/L Creatinine 0.63 L (0.66-1.25) mg/dL Glucose (70-110) mg/dL POC Glucose (mg/dL) (70-110) mg/dL Calcium (8.7-10.3) mg/dL Microbiology - Last 24 Hours (Table) 12/14/22 22:50 Blood Culture - Preliminary Blood No Growth after 24 hours 12/14/22 22:50 Blood Culture - Preliminary Blood No Growth after 24 hours 12/14/22 23:06 Gram Stain - Preliminary Foot - Left Wound Culture - Preliminary 12/14/22 23:06 Anaerobic Culture - Preliminary Foot - Left Diabetes panel 12/15/22 12/16/22 Range/Units 06:04 06:23 Sodium 134 L (135-145) mmol/L Potassium 4.1 (3.5-5.5) mmol/L Chloride 100 (96-109) mmol/L Carbon Dioxide 23.1 (20.0-27.5) mmol/L BUN 13.7 (9.0-27.0) mg/dL Creatinine 0.8 0.63 L (0.6-1.5) mg/dL Glucose 192 H (70-110) mg/dL Calcium 8.5 L (8.7-10.3) mg/dL Calcium panel 12/15/22 Range/Units 06:04 Calcium 8.5 L (8.7-10.3) mg/dL Pituitary panel 12/15/22 12/16/22 Range/Units 06:04 06:23 Sodium 134 L (135-145) mmol/L Potassium 4.1 (3.5-5.5) mmol/L Chloride 100 (96-109) mmol/L Carbon Dioxide 23.1 (20.0-27.5) mmol/L BUN 13.7 (9.0-27.0) mg/dL Creatinine 0.8 0.63 L (0.6-1.5) mg/dL Glucose 192 H (70-110) mg/dL Calcium 8.5 L (8.7-10.3) mg/dL Adrenal panel 12/15/22 12/16/22 Range/Units 06:04 06:23 Sodium 134 L (135-145) mmol/L Potassium 4.1 (3.5-5.5) mmol/L Chloride 100 (96-109) mmol/L Carbon Dioxide 23.1 (20.0-27.5) mmol/L BUN 13.7 (9.0-27.0) mg/dL Creatinine 0.8 0.63 L (0.6-1.5) mg/dL Glucose 192 H (70-110) mg/dL Calcium 8.5 L (8.7-10.3) mg/dL Assessment and Plan (1) Diabetic ulcer of left heel associated with diabetes mellitus due to underlying condition, with fat layer exposed Current Visit: Yes Status: Acute Code(s): E08.621 - DIABETES MELLITUS DUE TO UNDERLYING CONDITION W FOOT ULCER; L97.422 - NON-PRS CHR ULCER OF LEFT HEEL AND MIDFOOT W FAT LAYER EXPOS SNOMED Code(s): 539957270 Plan: Certainly the current findings make the wound somewhat suspicious for an osteomyelitis. A bone scan is apparently been ordered. In the meantime I would recommend continuing antibiotics as recommended by ID. He must continue to be meticulous about nonweightbearing. Daily Santyl and weekly debridements should be continued under the direction of wound care. Thank you for the opportunity to continue in this gentleman scare. I have reinforced to him the necessity of offloading and the potential for bone infect ion with a potential need for debridement to include the bone, depending on progress and the findings of the bone scan.f more aggressive deep debridement as time goes on.
[2022-12-16 10:13] VITALS: BMI 33.0
[2022-12-16] MEDS: INSULIN DETEMIR (LEVEMIR) 100 UNIT/ML SYR SQ SCH (11:30)
[2022-12-16] MEDS: ENOXAPARIN 40 MG/0.4 ML SYRINGE SQ SCH (11:30)
[2022-12-16] MEDS: SODIUM CHLORIDE 0.45% 1,000 ML IV SCH ×2 (11:38→23:44)
[2022-12-16 12:00] LABS: Glucose,Whole Blood 184 mg/dL (70-110)
--- NOTE | 2022-12-16 15:19 | P.PN ---
Subjective Progress Note Date: 12/16/22 Principal diagnosis: Left heel diabetic foot infection Patient is a 57-year-old male with past medical history significant for diabetes mellitus patient did mention he did have a Achilles tendon surgery afterwards the patient has developed a wound to the left heel area back in September 2022 , no presented to hospital with worsening wound and concern for secondary infection. On today's evaluation that is 12/16/2022, the patient denies having any fever or chills, the patient is breathing comfortably, the patient chest pain shortness of breath no significant cough no abdominal pain no diarrhea or pain to the left heel because of his neuropathy Objective - Vital Signs Vital signs: Vital Signs Temp 98.0 F 12/16/22 07:45 Pulse 72 12/16/22 07:45 Resp 19 12/16/22 07:45 BP 132/69 12/16/22 07:45 Pulse Ox 96 12/16/22 07:45 FiO2 Intake & Output 12/15/22 12/16/22 12/16/22 18:59 06:59 18:59 Output Total 1000 700 Balance -1000 -700 Weight 113.398 kg Output: Urine 1000 700 Other: # Voids 3 1 - Exam GENERAL DESCRIPTION: Middle-aged male lying in bed in no distress RESPIRATORY SYSTEM: Unlabored breathing , decreased breath sounds at bases HEART: S1 S2 regular rate and rhythm , ABDOMEN: Soft , no tenderness EXTREMITIES: Left heel wound is currently dressed - Labs CBC & Chem 7: 12/15/22 06:04 12/16/22 06:23 Labs: Abnormal Lab Results - Last 24 Hours (Table) 12/15/22 12/15/22 12/16/22 Range/Units 15:38 20:37 06:09 Creatinine (0.66-1.25) mg/dL POC Glucose (mg/dL) 267 H 279 H 218 H (70-110) mg/dL 12/16/22 12/16/22 Range/Units 06:23 11:58 Creatinine 0.63 L (0.66-1.25) mg/dL POC Glucose (mg/dL) 184 H (70-110) mg/dL Microbiology - Last 24 Hours (Table) 12/14/22 23:06 Gram Stain - Preliminary Foot - Left Wound Culture - Preliminary Strep agalactiae - (group b) 12/14/22 22:50 Blood Culture - Preliminary Blood No Growth after 24 hours 12/14/22 22:50 Blood Culture - Preliminary Blood No Growth after 24 hours Assessment and Plan (1) Diabetic ulcer of left heel associated with diabetes mellitus due to underlying condition, with fat layer exposed Current Visit: Yes Status: Acute Code(s): E08.621 - DIABETES MELLITUS DUE TO UNDERLYING CONDITION W FOOT ULCER; L97.422 - NON-PRS CHR ULCER OF LEFT HEEL AND MIDFOOT W FAT LAYER EXPOS SNOMED Code(s): 450506154 Plan: 1patient was in the hospital with diabetic foot infection in this patient with nonhealing wound since September 2022 with evidence of infection failing outpatient oral antibiotic therapy we will need to cover for the polymicrobial larry usually associated with diabetic foot infection 2-with high clinical suspicious for osteomyelitis we will obtain bone scan, which has been scheduled for Sunday 3-Patient has been evaluated by vascular surgery not recommending any debridement at this point 4-local wound care with the Santyl followed by moist dressing change daily 5-patient to continue the vancomycin and Zosyn while watching his kidney function closely further adjustment of antibiotic on the basis of culture Time with Patient: Less than 30
--- NOTE | 2022-12-16 16:18 | P.PN ---
Subjective Progress Note Date: 12/16/22 Patient is a 57-year-old male with history of obstructive sleep apnea not currently using CPAP, diabetes mellitus type 2, cirrhosis of the liver, restless legs, and chronic nonhealing right foot wound who presented to the emergency department with malodorous drainage and increasing erythema. On arrival to the ER he underwent an extensive evaluation. His initial vital signs were within normal limits. Initial laboratory analysis was remarkable for white blood cell count of 11, sodium 131, glucose 284, CRP is 6.5, & ESR 85. Arrangements were made for admission for infected diabetic foot ulcer. Patient was started on vancomycin and cefepime. Infectious disease was consulted and recommended continuing off Vanco and Zosyn while obtaining a nuclear medicine bone scan. Vascular surgery was consulted and recommends IV antibiotics as recommended by ID and meticulous nonweightbearing. Imaging: For x-ray-small ulceration along plantar aspect of the posterior foot with new regions of soft tissue gas associated with soft tissue edema concerning for infectious process Patient seen and examined at bedside. He denies any pain. He denies any chest pain, shortness of breath, nausea, vomiting. We had a very carlos discussion about risks of nonhealing and what that would mean as well as why they are continuing with antibiotics and wound dressings. He states that he has a his tory of cirrhosis and typically takes diuretics and propranolol. Vital signs reviewed General: nontoxic, no distress, appears at stated age Cardiovascular: S1S2 reg, no murmur, positive posterior tibial pulse bilateral, Lungs: CTA bilateral, no rhonchi, no rales , no accessory muscle use Abdominal: soft, nontender to palpation, no guarding, no appreciable organomegaly Ext: no gross muscle atrophy, 1+ edema right lower extremity, no contractures, dressing in place over right lower extremity Neuro: CN II-XI grossly intact, no focal neuro deficits Psych: Alert, oriented, appropriate affect Assessment: Infected diabetic nonhealing chronic wound with surrounding cellulitis-concern for osteomyelitis DM 2 Cirrhosis, compenstated RLS BELL Imaging: None new Data Review: Vital signs reviewed from this morning temperature 90.8, pulse 72, respirations 19, blood pressure 132/69, O2 sat 96% on room air Labs reviewed from today creatinine 0.63 Blood sugars were reviewed and a.m. fasting was 218, 8 PM yesterday was 279, 330 yesterday was 267 Blood cultures negative to date Plan: -Infectious disease note reviewed: Await bone scan, continue with vancomycin and Zosyn -Vascular surgery note reviewed: Await bone scan, continue with IV antibiotics as per infectious disease - Bone scan Monday 12/18 -Hold 70/30 and start Levemir 20 units daily, continue with sliding scale insulin, follow blood sugars -Resume SGLT 2 inhibitor - Reusle home cozaar 25 mg PO daily, Proproalol 10 mg TIB, Aldacone 50 mg daily - check IVF to 0.45 NS at 75 cc/hr - Reume requip 2 mg at night - Vancomycin D # 2- monitor for renal toxicity closely with trough and cr - Zosyn 3.375 grams q 8 hours D # 2 - repeat CBC and BMP in AM - Await outpatient wound cultures to finalize- currently growning GNB, Group B strep and possible staph DVT prophylaxis: Change to lovenox Discussed with: Patient and nursing Anticipated discharge date: pending clinic course Anticipated discharge place: peanding clinical course This dictation was prepared using [employer] voice recognition software. Though every attempt is made to correct errors during during dictation some may still exist. Objective - Vital Signs Vital signs: Vital Signs Temp 98.1 F 12/16/22 14:00 Pulse 70 12/16/22 14:00 Resp 18 12/16/22 14:00 BP 144/74 12/16/22 14:00 Pulse Ox 98 12/16/22 14:00 FiO2 Intake & Output 12/15/22 12/16/22 12/16/22 18:59 06:59 18:59 Output Total 1000 1350 Balance -1000 -1350 Weight 113.398 kg Output: Urine 1000 1350 Other: # Voids 3 1 - Labs CBC & Chem 7: 12/15/22 06:04 12/16/22 06:23 Labs: Abnormal Lab Results - Last 24 Hours (Table) 12/15/22 12/16/22 12/16/22 Range/Units 20:37 06:09 06:23 Creatinine 0.63 L (0.66-1.25) mg/dL POC Glucose (mg/dL) 279 H 218 H (70-110) mg/dL 12/16/22 Range/Units 11:58 Creatinine (0.66-1.25) mg/dL POC Glucose (mg/dL) 184 H (70-110) mg/dL Microbiology - Last 24 Hours (Table) 12/14/22 23:06 Gram Stain - Preliminary Foot - Left Wound Culture - Preliminary Strep agalactiae - (group b) 12/14/22 22:50 Blood Culture - Preliminary Blood No Growth after 24 hours 12/14/22 22:50 Blood Culture - Preliminary Blood No Growth after 24 hours
[2022-12-16 16:48] LABS: Glucose,Whole Blood 169 mg/dL (70-110)
[2022-12-16] MEDS: PROPRANOLOL 10 MG TAB PO SCH ×2 (17:27→23:43)
[2022-12-16 20:30] LABS: Glucose,Whole Blood 215 mg/dL (70-110)
[2022-12-16] MEDS: DAPAGLIFLOZIN PROPANEDIOL 10 MG TABLET PO SCH (21:00)
[2022-12-16] MEDS: LOSARTAN 25 MG TAB PO SCH (21:01)
[2022-12-16] MEDS: PREGABALIN 100 MG CAP PO SCH (21:01)
[2022-12-16] MEDS: SPIRONOLACTONE 25 MG TAB PO SCH (21:01)
[2022-12-17] MEDS: PIPERACILLIN-TAZOBACTAM 3.375 GM in SODIUM CHLORIDE 0.9% 100 ML IVPB SCH ×3 (00:05→15:47)
[2022-12-17] MEDS: VANCOMYCIN 1,750 MG in SODIUM CHLORIDE 0.9% 500 ML 500 ML IVPB SCH ×4 (00:07→23:45)
[2022-12-17 06:31] LABS: Glucose,Whole Blood 175 mg/dL (70-110)
[2022-12-17] MEDS: INSULIN ASPART (NovoLOG) 100 UNIT/ML VIAL SQ SCH ×6 (06:41→21:06)
[2022-12-17] MEDS: INSULIN DETEMIR (LEVEMIR) 100 UNIT/ML SYR SQ SCH (06:41)
[2022-12-17] MEDS: ENOXAPARIN 40 MG/0.4 ML SYRINGE SQ SCH (09:49)
[2022-12-17] MEDS: PROPRANOLOL 10 MG TAB PO SCH ×3 (09:49→21:07)
[2022-12-17] MEDS: COLLAGENASE 250 UNIT/GM OINTMENT 30 GM TUBE TOPICAL SCH (09:57)
[2022-12-17] MEDS ORDERED: CALCIUM CARBONATE 500 MG CHEWABLE PO PRN (10:25)
[2022-12-17] MEDS ORDERED: ONDANSETRON 4 MG/2 ML VIAL IVP PRN (10:25)
[2022-12-17 10:57] LABS: HCT 36.5 % (39.6-50.0); HGB 11.9 g/dL (13.0-17.0); MCH 29.8 pg (27.0-32.0); MCHC 32.6 g/dL (32.0-37.0); MCV 91.3 fL (80.0-97.0); Mean Platelet Volume 10.6 fL (9.5-12.2); NRBC Per 100 WBC 0 /100 WBCS (0.0-0.0); Platelet Count 178 X 10*3/uL (140-440); RDW 14.1 % (11.5-14.5); WBC 8.35 X 10*3/uL (4.50-10.00)
[2022-12-17 11:13] LABS: African American GFR (CKD) 120.6 (60.0-200.0); Anion Gap 6.1 mmol/L (10.00-18.00); Calcium 8.8 mg/dL (8.7-10.3); Carbon Dioxide 26.9 mmol/L (20.0-27.5); Potassium 4.4 mmol/L (3.5-5.5)
[2022-12-17 12:11] LABS: Glucose,Whole Blood 180 mg/dL (70-110)
[2022-12-17] MEDS: ACETAMINOPHEN TAB 325 MG TAB PO PRN (12:45)
--- NOTE | 2022-12-17 15:11 | P.PN ---
Subjective Progress Note Date: 12/17/22 Patient is a 57-year-old male with history of obstructive sleep apnea not currently using CPAP, diabetes mellitus type 2, cirrhosis of the liver, restless legs, and chronic nonhealing right foot wound who presented to the emergency department with malodorous drainage and increasing erythema. On arrival to the ER he underwent an extensive evaluation. His initial vital signs were within normal limits. Initial laboratory analysis was remarkable for white blood cell count of 11, sodium 131, glucose 284, CRP is 6.5, & ESR 85. Arrangements were made for admission for infected diabetic foot ulcer. Patient was started on vancomycin and cefepime. Infectious disease was consulted and recommended continuing off Vanco and Zosyn while obtaining a nuclear medicine bone scan. Vascular surgery was consulted and recommends IV antibiotics as recommended by ID and meticulous nonweightbearing. Imaging: For x-ray-small ulceration along plantar aspect of the posterior foot with new regions of soft tissue gas associated with soft tissue edema concerning for infectious process Patient seen and examined at bedside. He denies pain. Feeling well overall. He does report some low back discomfort which is not atypical for him. He would prefer Tylenol or Motrin and does not want any Richardson at this time. Vital signs reviewed General: nontoxic, no distress, appears at stated age Cardiovascular: S1S2 reg, no murmur, positive posterior tibial pulse bilateral, Lungs: CTA bilateral, no rhonchi, no rales , no accessory muscle use Abdominal: soft, nontender to palpation, no guarding, no appreciable organomegaly Ext: no gross muscle atrophy, 1+ edema right lower extremity, no contractures, dressing in place over right lower extremity Neuro: CN II-XI grossly intact, no focal neuro deficits Psych: Alert, oriented, appropriate affect Assessment: Infected diabetic nonhealing chronic wound with surrounding cellulitis-concern for osteomyelitis DM 2- A1C 9.4 Cirrhosis, compensated Back Pain RLS BELL Imaging: None new Data Review: Vital signs reviewed from this morning temperature 98.5, pulse 61, respirations 18, blood pressure 111/77, O2 sat 97% on room air Labs reviewed from today and white blood cell count 8.3, hemoglobin 11.9, glucose 175, A1c 9.4 Outpatient wound culture reviewed and demonstrated strep agalactiae, Alcaligen faecais, and MRSA Blood cultures negative to date Plan: -Infectious disease recs: Await bone scan, continue with vancomycin and Zosyn -Vascular surgery recs: Await bone scan, continue with IV antibiotics as per infectious disease - Bone scan Monday 12/18 -Increase Levemir 24 units daily, continue with sliding scale insulin, add novolog 3 units TID, follow blood sugars - Farxiga 10 mg at night - cozaar 25 mg PO daily, Proproalol 10 mg TID, Aldacone 50 mg daily - Continue 0.45 NS at 75 cc/hr - Requip 2 mg at night - Vancomycin D D #3- monitor for renal toxicity closely with trough and cr - Zosyn 3.375 grams q 8 hours D D #3 - repeat CBC and BMP in AM DVT prophylaxis: Change to lovenox Discussed with: Patient and nursing Anticipated discharge date: pending clinic course Anticipated discharge place: pending clinical course This dictation was prepared using [employer] voice recognition software. Though every attempt is made to correct errors during during dictation some may still exist. Objective - Vital Signs Vital signs: Vital Signs Temp 98.5 F 12/17/22 07:31 Pulse 61 12/17/22 07:31 Resp 18 12/17/22 08:13 BP 111/77 12/17/22 07:31 Pulse Ox 97 12/17/22 07:31 FiO2 Intake & Output 12/16/22 12/17/22 12/17/22 18:59 06:59 18:59 Output Total 1650 3000 500 Balance -1650 -3000 -500 Weight 113.398 kg Output: Urine 1650 3000 500 Other: Voiding Method Toilet # Voids 3 # Bowel Movements 1 1 - Labs CBC & Chem 7: 12/17/22 06:25 12/17/22 06:25 Labs: Abnormal Lab Results - Last 24 Hours (Table) 12/16/22 12/16/22 12/17/22 Range/Units 16:36 20:28 06:25 RBC (4.40-5.60) X 10*6/uL Hgb (13.0-17.0) g/dL Hct (39.6-50.0) % Anion Gap (10.00-18.00) mmol/L Glucose (70-110) mg/dL POC Glucose (mg/dL) 169 H 215 H (70-110) mg/dL Hemoglobin A1c 9.4 H (0.0-6.0) % 12/17/22 12/17/22 12/17/22 Range/Units 06:25 06:25 06:29 RBC 4.00 L (4.40-5.60) X 10*6/uL Hgb 11.9 L (13.0-17.0) g/dL Hct 36.5 L (39.6-50.0) % Anion Gap 6.10 L (10.00-18.00) mmol/L Glucose 157 H (70-110) mg/dL POC Glucose (mg/dL) 175 H (70-110) mg/dL Hemoglobin A1c (0.0-6.0) % 12/17/22 Range/Units 11:46 RBC (4.40-5.60) X 10*6/uL Hgb (13.0-17.0) g/dL Hct (39.6-50.0) % Anion Gap (10.00-18.00) mmol/L Glucose (70-110) mg/dL POC Glucose (mg/dL) 180 H (70-110) mg/dL Hemoglobin A1c (0.0-6.0) % Microbiology - Last 24 Hours (Table) 12/14/22 23:06 Gram Stain - Preliminary Foot - Left Wound Culture - Preliminary Strep agalactiae - (group b) Presumptive Staph aureus Gram Neg Bacilli 12/14/22 22:50 Blood Culture - Preliminary Blood No Growth after 48 hours 12/14/22 22:50 Blood Culture - Preliminary Blood No Growth after 48 hours
--- NOTE | 2022-12-17 16:20 | P.PN ---
Subjective Progress Note Date: 12/17/22 Principal diagnosis: Left heel diabetic foot infection Patient is a 57-year-old male with past medical history significant for diabetes mellitus patient did mention he did have a Achilles tendon surgery afterwards the patient has developed a wound to the left heel area back in September 2022 , no presented to hospital with worsening wound and concern for secondary infection. On today's evaluation that is 12/17/2022, the patient remains to be afebrile, the patient is breathing comfortably, the patient chest pain shortness of breath no significant cough, the patient denies abdominal pain no diarrhea or pain to the left heel because of his neuropathy Objective - Vital Signs Vital signs: Vital Signs Temp 97.8 F 12/17/22 14:07 Pulse 64 12/17/22 14:07 Resp 18 12/17/22 14:07 BP 128/71 12/17/22 14:07 Pulse Ox 94 L 12/17/22 14:07 FiO2 Intake & Output 12/16/22 12/17/22 12/17/22 18:59 06:59 18:59 Output Total 1650 3000 1450 Balance -1650 -3000 -1450 Weight 113.398 kg Output: Urine 1650 3000 1450 Other: Voiding Method Toilet # Voids 3 # Bowel Movements 1 1 - Exam GENERAL DESCRIPTION: Middle-aged male lying in bed in no distress RESPIRATORY SYSTEM: Unlabored breathing , decreased breath sounds at bases HEART: S1 S2 regular rate and rhythm , ABDOMEN: Soft , no tenderness EXTREMITIES: Left heel wound is currently dressed - Labs CBC & Chem 7: 12/17/22 06:25 12/17/22 06:25 Labs: Abnormal Lab Results - Last 24 Hours (Table) 12/16/22 12/16/22 12/17/22 Range/Units 16:36 20:28 06:25 RBC (4.40-5.60) X 10*6/uL Hgb (13.0-17.0) g/dL Hct (39.6-50.0) % Anion Gap (10.00-18.00) mmol/L Glucose (70-110) mg/dL POC Glucose (mg/dL) 169 H 215 H (70-110) mg/dL Hemoglobin A1c 9.4 H (0.0-6.0) % 12/17/22 12/17/22 12/17/22 Range/Units 06:25 06:25 06:29 RBC 4.00 L (4.40-5.60) X 10*6/uL Hgb 11.9 L (13.0-17.0) g/dL Hct 36.5 L (39.6-50.0) % Anion Gap 6.10 L (10.00-18.00) mmol/L Glucose 157 H (70-110) mg/dL POC Glucose (mg/dL) 175 H (70-110) mg/dL Hemoglobin A1c (0.0-6.0) % 12/17/22 Range/Units 11:46 RBC (4.40-5.60) X 10*6/uL Hgb (13.0-17.0) g/dL Hct (39.6-50.0) % Anion Gap (10.00-18.00) mmol/L Glucose (70-110) mg/dL POC Glucose (mg/dL) 180 H (70-110) mg/dL Hemoglobin A1c (0.0-6.0) % Microbiology - Last 24 Hours (Table) 12/14/22 23:06 Gram Stain - Preliminary Foot - Left Wound Culture - Preliminary Strep agalactiae - (group b) Presumptive Staph aureus Gram Neg Bacilli 12/14/22 22:50 Blood Culture - Preliminary Blood No Growth after 48 hours 12/14/22 22:50 Blood Culture - Preliminary Blood No Growth after 48 hours Assessment and Plan (1) Diabetic ulcer of left heel associated with diabetes mellitus due to underlying condition, with fat layer exposed Current Visit: Yes Status: Acute Code(s): E08.621 - DIABETES MELLITUS DUE TO UNDERLYING CONDITION W FOOT ULCER; L97.422 - NON-PRS CHR ULCER OF LEFT HEEL AND MIDFOOT W FAT LAYER EXPOS SNOMED Code(s): 752636241 Plan: 1patient was in the hospital with diabetic foot infection in this patient with nonhealing wound since September 2022 with evidence of infection failing outpa tient oral antibiotic therapy we will need to cover for the polymicrobial larry usually associated with diabetic foot infection 2-with high clinical suspicious for osteomyelitis we will obtain bone scan, which has been scheduled for Sunday 3-Patient has been evaluated by vascular surgery not recommending any debridement at this point 4-local wound care with the Santyl followed by moist dressing change daily 5-patient cultures currently growing Streptococcus MRSA and Alcaligenes faecalis patient to continue the vancomycin however we will switch his Zosyn to Rocephin and oral Flagyl to decrease risk of nephrotoxicity order PICC line for tomorrow Time with Patient: Less than 30
[2022-12-17 16:48] LABS: Glucose,Whole Blood 300 mg/dL (70-110)
[2022-12-17] MEDS: metroNIDAZOLE 500 MG TAB PO SCH ×2 (17:01→21:09)
[2022-12-17] MEDS: HYDROcodone/APAP 7.5-325MG 1 EACH TAB PO PRN ×2 (19:37→23:45)
[2022-12-17 20:18] LABS: Glucose,Whole Blood 276 mg/dL (70-110)
[2022-12-17] MEDS: SODIUM CHLORIDE 0.45% 1,000 ML IV SCH (21:02)
[2022-12-17] MEDS: SPIRONOLACTONE 25 MG TAB PO SCH (21:06)
[2022-12-17] MEDS: PREGABALIN 100 MG CAP PO SCH (21:06)
[2022-12-17] MEDS: LOSARTAN 25 MG TAB PO SCH (21:06)
[2022-12-17] MEDS: DAPAGLIFLOZIN PROPANEDIOL 10 MG TABLET PO SCH (21:07)
[2022-12-18] MEDS: SODIUM CHLORIDE 0.45% 1,000 ML IV SCH ×2 (03:04→18:03)
[2022-12-18] MEDS: HYDROcodone/APAP 7.5-325MG 1 EACH TAB PO PRN ×3 (03:52→23:56)
[2022-12-18 06:29] LABS: Glucose,Whole Blood 200 mg/dL (70-110)
[2022-12-18] MEDS: INSULIN DETEMIR (LEVEMIR) 100 UNIT/ML SYR SQ SCH (06:31)
[2022-12-18] MEDS ORDERED: VANCOMYCIN TROUGH DUE 1 EACH MISC MISCELLANE ONE (07:00)
[2022-12-18 07:31] LABS: African American GFR (CKD) >90 (>60 ml/min/1.73 sqM); Anion Gap 6 mmol/L; Blood Urea Nitrogen 16 mg/dL (9-20); Calcium 8.3 mg/dL (8.4-10.2); Carbon Dioxide 27 mmol/L (22-30); Chloride 104 mmol/L (98-107); Glucose 196 mg/dL (74-99); Non-African American GFR(CKD) >90 (>60 ml/min/1.73 sqM); Potassium 4.7 mmol/L (3.5-5.1); Sodium 137 mmol/L (137-145)
[2022-12-18 07:59] LABS: Glucose,Whole Blood 217 mg/dL (70-110)
[2022-12-18] MEDS: ENOXAPARIN 40 MG/0.4 ML SYRINGE SQ SCH (08:06)
[2022-12-18] MEDS: INSULIN ASPART (NovoLOG) 100 UNIT/ML VIAL SQ SCH ×9 (08:06→20:24)
[2022-12-18] MEDS: metroNIDAZOLE 500 MG TAB PO SCH ×3 (08:07→20:24)
[2022-12-18] MEDS: COLLAGENASE 250 UNIT/GM OINTMENT 30 GM TUBE TOPICAL SCH (08:08)
[2022-12-18] MEDS: PROPRANOLOL 10 MG TAB PO SCH ×3 (08:08→20:26)
[2022-12-18] MEDS: VANCOMYCIN 1,750 MG in SODIUM CHLORIDE 0.9% 500 ML 500 ML IVPB SCH (08:15)
[2022-12-18] MEDS: VANCOMYCIN 1,500 MG in SODIUM CHLORIDE 0.9% 500 ML 500 ML IVPB SCH ×2 (10:07→17:57)
[2022-12-18] MEDS: ACETAMINOPHEN TAB 325 MG TAB PO PRN (10:07)
[2022-12-18 11:15] LABS: HCT 37.3 % (39.6-50.0); HGB 11.9 g/dL (13.0-17.0); MCHC 31.9 g/dL (32.0-37.0); Mean Platelet Volume 10.6 fL (9.5-12.2); NRBC Per 100 WBC 0 /100 WBCS (0.0-0.0); Platelet Count 180 X 10*3/uL (140-440); RDW 14.2 % (11.5-14.5); WBC 8.08 X 10*3/uL (4.50-10.00)
[2022-12-18] MEDS ORDERED: LIDOCAINE 1% INJ 10MG/ML (5 ML VIAL-PF) SQ ONE (11:34)
[2022-12-18 13:36] LABS: Glucose,Whole Blood 268 mg/dL (70-110)
--- NOTE | 2022-12-18 14:43 | IR ---
PICC LINE PLACEMENT: HISTORY: Infection requiring long-term antibiotic therapy PROCEDURE: Ultrasound and fluoroscopic guidance of PICC line placement. COMPLICATIONS: None ANESTHESIA: 1. 1% Lidocaine locally. FINDINGS/TECHNIQUE: The procedure was explained to the patient. The risks, complications, benefits and alternatives were discussed and any questions were answered. Informed consent was obtained. The patient was placed supine on the fluoroscopic table and prepped and draped in the usual sterile fash ion. Utilizing a 21 gauge needle and sonographic and fluoroscopic guidance, access in the [right ba silic vein ] was achieved and there is placement of a 0.018 guidewire. The vein is patent. A 4-F. S jadon was placed over the guidewire. The guidewire and dilator were removed and a 4-F. PICC line was placed through the sheath with the tip at the level of the SVC. The sheath was removed, the cathete r was flushed and sutured into position. The patient was stable throughout the procedure and remaine d stable upon discharge from the Department of Radiology. The vein puncture was patent under ultrasound. A thomason scale image was obtained to document patency of the vein punctured. All elements of the maximal barrier technique were utilized. FLUOROSCOPY TIME: 0.1 minutes. The DAP and 0.5326 IMPRESSION: Successful PICC line placement under ultrasound and fluoroscopic guidance.
--- NOTE | 2022-12-18 15:02 | NM ---
EXAMINATION TYPE: NM bone 3 phase DATE OF EXAM: 12/18/2022 COMPARISON: NONE HISTORY: left heel diabetic ulcer r/o osteo Triple phase bone scintigraphy was performed following the injection of 22.7 mCi Tc 99m MDP. Immedia te images and 5.5 hours post injection images acquired. FINDINGS: On all 3 phases of the examination there is increased radiotracer accumulation noted to involve the p osterior left os calcis suspicious for osteomyelitis. Mild degenerative uptake is seen about the grea t toes as well as the third and fourth left metatarsal phalangeal joints. IMPRESSION: On all 3 phases of the examination there is increased radiotracer accumulation noted to involve the p osterior left os calcis suspicious for osteomyelitis.
--- NOTE | 2022-12-18 16:41 | P.PN ---
Subjective Progress Note Date: 12/18/22 (Delayed charting. Patient seen at 10:40 AM) Patient is a 57-year-old male with history of obstructive sleep apnea not currently using CPAP, diabetes mellitus type 2, cirrhosis of the liver, restless legs, and chronic nonhealing right foot wound who presented to the emergency department with malodorous drainage and increasing erythema. On arrival to the ER he underwent an extensive evaluation. His initial vital signs were within normal limits. Initial laboratory analysis was remarkable for white blood cell count of 11, sodium 131, glucose 284, CRP is 6.5, & ESR 85. Arrangements were made for admission for infected diabetic foot ulcer. Patient was started on vancomycin and cefepime. Infectious disease was consulted and recommended continuing off Vanco and Zosyn while obtaining a nuclear medicine bone scan. Vascular surgery was consulted and recommends IV antibiotics as recommended by ID and meticulous nonweightbearing. Imaging: For x-ray-small ulceration along plantar aspect of the posterior foot with new regions of soft tissue gas associated with soft tissue edema concerning for infectious process Patient seen and examined at bedside. No complaints, anxious to go home, no diarrhea or nausea, believes that he can handle administering IV ABX at home. Vital signs reviewed General: nontoxic, no distress, appears at stated age Cardiovascular: S1S2 reg, no murmur, positive posterior tibial pulse bilateral, Lungs: CTA bilateral, no rhonchi, no rales , no accessory muscle use Abdominal: soft, nontender to palpation, no guarding, no appreciable organomeg saba Ext: no gross muscle atrophy, 1+ edema right lower extremity, no contractures, dressing in place over right lower extremity Neuro: CN II-XI grossly intact, no focal neuro deficits Psych: Alert, oriented, appropriate affect Assessment: Infected diabetic nonhealing chronic wound with surrounding cellulitis-concern for osteomyelitis DM 2- A1C 9.4 Cirrhosis, compensated Back Pain RLS BELL Imaging: Triple phase bone scan-suspicious for osteomyelitis of the posterior left heal Data Review: Vital signs reviewed from this morning a temperature 97.5, pulse 58, respirations 16, blood pressure 131/72, O2 sat 97% on room air. Laboratory analysis reviewed and remarkable for hemoglobin 11.9, and Vanco trough 22.1. Blood sugars reviewed and was 200 at fasting. Yesterday evening they were 276, and 300 Plan: -Infectious disease recs: Await bone scan, continue with vancomycin transition to rocephin and flagyl from [facility] - [facility] recs: await bone scan, continue with IV antibiotics as per infectious disease - Levemir 24 units daily, continue with sliding scale insulin, novolog increased to 5 units TID, follow blood sugars - Farxiga 10 mg at night - cozaar 25 mg PO daily, Proproalol 10 mg TID, Aldacone 50 mg daily - Continue 0.45 NS at 75 cc/hr - Requip 2 mg at night - Vancomycin D D #4- monitor for renal toxicity closely with trough and cr -Rocephin and Flagy D # 1 - repeat C BMP in AM DVT prophylaxis: Change to lovenox Discussed with: Patient and nursing Anticipated discharge date: in AM once IV abx arranged Anticipated discharge place: home with home health This dictation was prepared using [employer] voice recognition software. Though every attempt is made to correct errors during during dictation some may still exist. Objective - Vital Signs Vital signs: Vital Signs Temp 96.9 F L 12/18/22 14:00 Pulse 67 12/18/22 14:00 Resp 17 12/18/22 14:00 BP 126/74 12/18/22 14:00 Pulse Ox 98 12/18/22 14:00 FiO2 Intake & Output 12/17/22 12/18/22 12/18/22 18:59 06:59 18:59 Intake Total 3080 Output Total 2125 4200 Balance -5 -1120 Intake: Intake, IV Titration 1400 Amount Sodium Chloride 0.45% 1, 900 000 ml @ 75 mls/hr IV . [id number] DARIELA Rx#:[id number] Vancomycin 1,750 mg In 500 Sodium Chloride 0.9% 500 ml 500 ml @ 167 mls/hr IVPB Q8H DARIELA Rx#: [id number] Oral 1680 Output: Urine 2125 4200 Other: Voiding Method Toilet Toilet - Labs CBC & Chem 7: 12/18/22 06:49 12/18/22 06:49 Labs: Abnormal Lab Results - Last 24 Hours (Table) 12/17/22 12/17/22 12/18/22 Range/Units 16:40 19:36 06:28 RBC (4.40-5.60) X 10*6/uL Hgb (13.0-17.0) g/dL Hct (39.6-50.0) % MCHC (32.0-37.0) g/dL Glucose (74-99) mg/dL POC Glucose (mg/dL) 300 H 276 H 200 H (70-110) mg/dL Calcium (8.4-10.2) mg/dL 12/18/22 12/18/22 12/18/22 Range/Units 06:49 06:49 07:57 RBC 4.10 L (4.40-5.60) X 10*6/uL Hgb 11.9 L (13.0-17.0) g/dL Hct 37.3 L (39.6-50.0) % MCHC 31.9 L (32.0-37.0) g/dL Glucose 196 H (74-99) mg/dL POC Glucose (mg/dL) 217 H (70-110) mg/dL Calcium 8.3 L (8.4-10.2) mg/dL 12/18/22 Range/Units 13:35 RBC (4.40-5.60) X 10*6/uL Hgb (13.0-17.0) g/dL Hct (39.6-50.0) % MCHC (32.0-37.0) g/dL Glucose (74-99) mg/dL POC Glucose (mg/dL) 268 H (70-110) mg/dL Calcium (8.4-10.2) mg/dL Microbiology - Last 24 Hours (Table) 12/14/22 23:06 Anaerobic Culture - Preliminary Foot - Left 12/14/22 22:50 Blood Culture - Preliminary Blood No Growth after 72 hours 12/14/22 22:50 Blood Culture - Preliminary Blood No Growth after 72 hours 12/14/22 23:06 Gram Stain - Preliminary Foot - Left Wound Culture - Preliminary Strep agalactiae - (group b) Presumptive Staph aureus Gram Neg Bacilli
--- NOTE | 2022-12-18 16:42 | P.PN ---
Subjective Progress Note Date: 12/18/22 Principal diagnosis: Left heel diabetic foot infection Patient is a 57-year-old male with past medical history significant for diabetes mellitus patient did mention he did have a Achilles tendon surgery afterwards the patient has developed a wound to the left heel area back in September 2022 , no presented to hospital with worsening wound and concern for secondary infection. On today's evaluation that is 12/18/2022, the patient continues to be afebrile, the patient is breathing comfortably on room air, the patient chest pain shortness of breath no significant cough, the patient denies abdominal pain no diarrhea or pain to the left heel because of his neuropathy, overall feeling better Objective - Vital Signs Vital signs: Vital Signs Temp 97.5 F L 12/18/22 07:07 Pulse 58 L 12/18/22 07:07 Resp 16 12/18/22 08:00 BP 131/72 12/18/22 07:07 Pulse Ox 97 12/18/22 07:07 FiO2 Intake & Output 12/17/22 12/18/22 12/18/22 18:59 06:59 18:59 Intake Total 3080 Output Total 2125 4200 Balance -2124 Intake: Intake, IV Titration 1400 Amount Sodium Chloride 0.45% 1, 900 000 ml @ 75 mls/hr IV . [id number] DARIELA Rx#:[id number] Vancomycin 1,750 mg In 500 Sodium Chloride 0.9% 500 ml 500 ml @ 167 mls/hr IVPB Q8H DARIELA Rx#: [id number] Oral 1680 Output: Urine 2125 4200 Other: Voiding Method Toilet Toilet - Exam GENERAL DESCRIPTION: Middle-aged male lying in bed in no distress RESPIRATORY SYSTEM: Unlabored breathing , decreased breath sounds at bases HEART: S1 S2 regular rate and rhythm , ABDOMEN: Soft , no tenderness EXTREMITIES: Left heel wound is currently dressed - Labs CBC & Chem 7: 12/18/22 06:49 12/18/22 06:49 Labs: Abnormal Lab Results - Last 24 Hours (Table) 12/17/22 12/17/22 12/17/22 Range/Units 06:25 11:46 16:40 RBC (4.40-5.60) X 10*6/uL Hgb (13.0-17.0) g/dL Hct (39.6-50.0) % MCHC (32.0-37.0) g/dL Glucose (74-99) mg/dL POC Glucose (mg/dL) 180 H 300 H (70-110) mg/dL Hemoglobin A1c 9.4 H (0.0-6.0) % Calcium (8.4-10.2) mg/dL 12/17/22 12/18/22 12/18/22 Range/Units 19:36 06:28 06:49 RBC (4.40-5.60) X 10*6/uL Hgb (13.0-17.0) g/dL Hct (39.6-50.0) % MCHC (32.0-37.0) g/dL Glucose 196 H (74-99) mg/dL POC Glucose (mg/dL) 276 H 200 H (70-110) mg/dL Hemoglobin A1c (0.0-6.0) % Calcium 8.3 L (8.4-10.2) mg/dL 12/18/22 12/18/22 Range/Units 06:49 07:57 RBC 4.10 L (4.40-5.60) X 10*6/uL Hgb 11.9 L (13.0-17.0) g/dL Hct 37.3 L (39.6-50.0) % MCHC 31.9 L (32.0-37.0) g/dL Glucose (74-99) mg/dL POC Glucose (mg/dL) 217 H (70-110) mg/dL Hemoglobin A1c (0.0-6.0) % Calcium (8.4-10.2) mg/dL Microbiology - Last 24 Hours (Table) 12/14/22 22:50 Blood Culture - Preliminary Blood No Growth after 72 hours 12/14/22 22:50 Blood Culture - Preliminary Blood No Growth after 72 hours 12/14/22 23:06 Gram Stain - Preliminary Foot - Left Wound Culture - Preliminary Strep agalactiae - (group b) Presumptive Staph aureus Gram Neg Bacilli Assessment and Plan (1) Diabetic ulcer of left heel associated with diabetes mellitus due to underlying condition, with fat layer exposed Current Visit: Yes Status: Acute Code(s): E08.621 - DIABETES MELLITUS DUE TO UNDERLYING CONDITION W FOOT ULCER; L97.422 - NON-PRS CHR ULCER OF LEFT HEEL AND MIDFOOT W FAT LAYER EXPOS SNOMED Code(s): 560883460 Plan: 1patient was in the hospital with diabetic foot infection in this patient with nonhealing wound since September 2022 with evidence of infection failing outpatient oral antibiotic therapy we will need to cover for the polymicrobial larry usually associated with diabetic foot infection 2-with high clinical suspicious for osteomyelitis , bone scan is currently in progress and waiting for finalization 3-Patient has been evaluated by vascular surgery not recommending any debridement at this point 4-local wound care with the Santyl followed by moist dressing change daily 5-patient cultures currently growing Streptococcus MRSA and Alcaligenes faecalis patient to continue the vancomycin , Rocephin and oral Flagyl , patient already got a PICC line this morning Time with Patient: Less than 30
[2022-12-18 17:08] LABS: Glucose,Whole Blood 296 mg/dL (70-110)
[2022-12-18 20:12] LABS: Glucose,Whole Blood 317 mg/dL (70-110)
[2022-12-18] MEDS: SPIRONOLACTONE 25 MG TAB PO SCH (20:24)
[2022-12-18] MEDS: LOSARTAN 25 MG TAB PO SCH (20:24)
[2022-12-18] MEDS: PREGABALIN 100 MG CAP PO SCH (20:24)
[2022-12-18] MEDS: DAPAGLIFLOZIN PROPANEDIOL 10 MG TABLET PO SCH (20:26)
[2022-12-19] MEDS: VANCOMYCIN 1,500 MG in SODIUM CHLORIDE 0.9% 500 ML 500 ML IVPB SCH ×2 (01:07→07:48)
[2022-12-19 01:52] VITALS: RESP 17
[2022-12-19] MEDS: HYDROcodone/APAP 7.5-325MG 1 EACH TAB PO PRN (04:15)
[2022-12-19] MEDS: SODIUM CHLORIDE 0.45% 1,000 ML IV SCH ×2 (05:22→06:04)
[2022-12-19 05:52] LABS: Glucose,Whole Blood 207 mg/dL (70-110)
[2022-12-19] MEDS: INSULIN DETEMIR (LEVEMIR) 100 UNIT/ML SYR SQ SCH (06:00)
[2022-12-19] MEDS: ENOXAPARIN 40 MG/0.4 ML SYRINGE SQ SCH (07:37)
[2022-12-19] MEDS: COLLAGENASE 250 UNIT/GM OINTMENT 30 GM TUBE TOPICAL SCH (07:38)
[2022-12-19] MEDS: INSULIN ASPART (NovoLOG) 100 UNIT/ML VIAL SQ SCH ×2 (07:38)
[2022-12-19] MEDS: metroNIDAZOLE 500 MG TAB PO SCH (07:40)
[2022-12-19] MEDS: PROPRANOLOL 10 MG TAB PO SCH (07:41)
[2022-12-19 08:18] LABS: African American GFR (CKD) >90 (>60 ml/min/1.73 sqM); Non-African American GFR(CKD) >90 (>60 ml/min/1.73 sqM)
[2022-12-19 08:19] VITALS: BP 100/63; PULSE 62; TEMP 98.3
--- NOTE | 2022-12-19 10:06 | P.DS ---
Providers Date of admission: 12/15/22 01:01 Expected date of discharge: 12/19/22 Attending physician: Catrachita Carroll MD Consults: 12/15/22 04:23 Consult Physician Routine Consulting Provider: Jenaro Qureshi Consult Reason/Comments: diabetic foot ulcer Do you want consulting provider notified?: Yes, Notify in am 12/15/22 08:22 Consult Physician Routine Consulting Provider: Dominick Singletary Consult Reason/Comments: diabetic ulcer Do you want consulting provider notified?: Yes Primary care physician: Conrado Heck MD Hospital Course: Discharge Diagnosis: Infected diabetic nonhealing chronic wound with surrounding cellulitis and underlying acute osteomyelitis DM 2 with hyperglycemia- A1C 9.4 Cirrhosis, compensated Chronic Back Pain RLS BELL Hospital Course: helen is a 57-year-old male with history of obstructive sleep apnea not currently using CPAP, diabetes mellitus type 2, cirrhosis of the liver, restless legs, and chronic nonhealing right foot wound who presented to the emergency department with malodorous drainage and increasing erythema. On arrival to the ER he underwent an extensive evaluation. His initial vital signs were within normal limits. Initial laboratory analysis was remarkable for white blood cell count of 11, sodium 131, glucose 284, CRP is 6.5, & ESR 85. Arrangements were made for admission for infected diabetic foot ulcer. Patient was started on vancomycin and cefepime. Infectious disease was consulted and recommended continuing off Vanco and Zosyn while obtaining a nuclear medicine bone scan. Vascular surgery was consulted and recommends IV antibiotics as recommended by ID and meticulous nonweightbearing. Imaging: Foot x-ray-small ulceration along plantar aspect of the posterior foot with new regions of soft tissue gas associated with soft tissue edema concerning for infectious process Triple phase bone scan-suspicious for osteomyelitis of the posterior left heal Patient seen and examined at bedside. Doing well, no complaints, wants to go home Vital signs reviewed and stable. General: nontoxic, no distress, appears at stated age Cardiovascular: S1S2 reg, no murmur, positive posterior tibial pulse bilateral, Lungs: CTA bilateral, no rhonchi, no rales , no accessory muscle use Abdominal: soft, nontender to palpation, no guarding, no appreciable organomegaly Ext: no gross muscle atrophy, 1+ edema right lower extremity, no contractures, dressing in place over right lower extremity Neuro: CN II-XI grossly intact, no focal neuro deficits Psych: Alert, oriented, appropriate affect A total of 37 minutes of time were spent preparing this complex discharge summary. Patient was discharged on 12/19/22. This dictation was prepared using [employer] voice recognition software. Though every attempt is made to correct errors during during dictation some may still exist. Patient Condition at Discharge: Stable Plan - Discharge Summary New Discharge Prescriptions: New metroNIDAZOLE [Flagyl] 500 mg PO TID #126 tab cefTRIAXone [Rocephin] 2 gm IVPB Q24HR each Continue rOPINIRole HCL [Requip] 4 mg PO HS Pregabalin [Lyrica] 100 mg PO HS metFORMIN HCL [Glucophage] 1,000 mg PO BID Losartan Potassium [Cozaar] 25 mg PO HS Spironolactone 50 mg PO HS Empagliflozin [Jardiance] 25 mg PO HS Insulin Aspart Prot/Insuln Asp [NovoLOG MIX 70-30 Flexpen] 70 unit SQ BID Propranolol [Inderal] 10 mg PO HS Ferrous Sulfate [Iron (65 MG Elemental)] 325 mg PO HS Collagenase [Santyl Ointment] 1 applic TOPICAL DAILY Discharge Medication List Insulin Aspart Prot/Insuln Asp [NovoLOG MIX 70-30 Flexpen] 70 unit SQ BID 03/31/21 [History] Pregabalin [Lyrica] 100 mg PO HS 03/31/21 [History] metFORMIN HCL [Glucophage] 1,000 mg PO BID 03/31/21 [History] rOPINIRole HCL [Requip] 4 mg PO HS 03/31/21 [History] Propranolol [Inderal] 10 mg PO HS 06/26/22 [History] Collagenase [Santyl Ointment] 1 applic TOPICAL DAILY 12/15/22 [History] Empagliflozin [Jardiance] 25 mg PO HS 12/15/22 [History] Ferrous Sulfate [Iron (65 MG Elemental)] 325 mg PO HS 12/15/22 [History] Losartan Potassium [Cozaar] 25 mg PO HS 12/15/22 [History] Spironolactone 50 mg PO HS 12/15/22 [History] cefTRIAXone [Rocephin] 2 gm IVPB Q24HR each 12/19/22 [Rx] metroNIDAZOLE [Flagyl] 500 mg PO TID #126 tab 12/19/22 [Rx] Follow up Appointment(s)/Referral(s): Home Health,[facility] [NON-STAFF] - As Needed Conrado Heck MD [Primary Care Provider] - 1-2 days [facility],Infusion [NON-STAFF] - As Needed (IV antibiotics will be delivered to your home through [facility] Dominick Singletary MD [STAFF PHYSICIAN] - 01/09/23 1:45 pm Activity/Diet/Wound Care/Special Instructions: Activity: No weight bearing on left heel Diet: Carb consistent Wound Care: Per wound care clinic Special Instructions: Please keep a close eye on your blood sugar and bring a log to your appointment with Dr. Heck Your A1C is 9.4 Please keep Picc line clean, it should be removed once your complete your antibiotics Thank your for trusting us with your care, we wish you well on your journey to better health. Discharge Disposition: HOME SELF-CARE
[2022-12-20] MEDS ORDERED: VANCOMYCIN TROUGH DUE 1 EACH MISC MISCELLANE ONE (08:00)
== END 2022-12-19 11:15 | disposition home or self-care (01) | DRG 638 ==
LOC: EC 22:07 → 4SSUR 12-15 01:01
PROVIDERS: ADMIT Internal Medicine; ATTEND Internal Medicine
PROC: B5181ZA Fluoroscopy of Superior Vena Cava using Low Osmolar Contrast, Guidance (ICD-10-PCS; 2022-12-18)
PROC: B548ZZA Ultrasonography of Superior Vena Cava, Guidance (ICD-10-PCS; 2022-12-18)
PROC: 02HV33Z Insertion of Infusion Device into Superior Vena Cava, Percutaneous Approach (ICD-10-PCS; principal; 2022-12-18 09:25)
DX: E11.621 Type 2 diabetes mellitus with foot ulcer (principal); E87.1 Hypo-osmolality and hyponatremia; L97.429 Non-pressure chronic ulcer of left heel and midfoot with unspecified severity; M86.8X7 Other osteomyelitis, ankle and foot; L03.116 Cellulitis of left lower limb; I96 Gangrene, not elsewhere classified; L97.529 Non-pressure chronic ulcer of other part of left foot with unspecified severity; E11.628 Type 2 diabetes mellitus with other skin complications; E11.41 Type 2 diabetes mellitus with diabetic mononeuropathy; G57.90 Unspecified mononeuropathy of unspecified lower limb; K74.60 Unspecified cirrhosis of liver; B95.62 Methicillin resistant Staphylococcus aureus infection as the cause of diseases classified elsewhere; E11.622 Type 2 diabetes mellitus with other skin ulcer; G89.29 Other chronic pain; G25.81 Restless legs syndrome; E11.69 Type 2 diabetes mellitus with other specified complication; B96.89 Other specified bacterial agents as the cause of diseases classified elsewhere; G47.33 Obstructive sleep apnea (adult) (pediatric); M54.9 Dorsalgia, unspecified; Z87.19 Personal history of other diseases of the digestive system; Z79.2 Long term (current) use of antibiotics; Z79.84 Long term (current) use of oral hypoglycemic drugs
CPT/HCPCS: 36415; 36573; 78315; 80048; 80053; 80202; 82565; 83036; 83605; 85025; 85027; 85610; 85652; 85730; 86140; 87040; 87070; 87075; 87077; 87186; 87205; 96365; 96367; 99285

== ENCOUNTER → 2023-01-01 | Outpatient (CLI) | payer BC ==
[2023-01-01 12:37] VITALS: BP 133/74; PULSE 98; RESP 16; TEMP 98
[2023-01-01 12:49] LABS: Basophils % (A) 1 %; Eosinophils # (A) 0.4 k/uL (0-0.7); Eosinophils % (A) 6 %; HCT 40.7 % (39.0-53.0); HGB 13.2 gm/dL (13.0-17.5); Lymphocytes # (A) 1.1 k/uL (1.0-4.8); Lymphocytes % (A) 16 %; MCH 30.4 pg (25.0-35.0); MCHC 32.5 g/dL (31.0-37.0); Mean Platelet Volume 8.8; Monocytes # (A) 0.5 k/uL (0-1.0); Monocytes % (A) 7 %; Neutrophils # (A) 4.3 k/uL (1.3-7.7); Neutrophils % (A) 67 %; Platelet Count 114 k/uL (150-450); RBC 4.35 m/uL (4.30-5.90); RDW 14.9 % (11.5-15.5); WBC 6.5 k/uL (3.8-10.6)
[2023-01-01 13:01] LABS: MCV 93.6 fL (80.0-100.0)
[2023-01-01 13:27] LABS: African American GFR (CKD) >90 (>60 ml/min/1.73 sqM); Anion Gap 7 mmol/L; Blood Urea Nitrogen 15 mg/dL (9-20); Calcium 9.1 mg/dL (8.4-10.2); Carbon Dioxide 25 mmol/L (22-30); Chloride 105 mmol/L (98-107); Glucose 130 mg/dL (74-99); Non-African American GFR(CKD) >90 (>60 ml/min/1.73 sqM); Potassium 4.4 mmol/L (3.5-5.1); Sodium 137 mmol/L (137-145)
[2023-01-01 14:54] LABS: Erythrocyte Sedimentation Rate 31 mm/hr (0-15)
[2023-01-01 15:26] LABS: C Reactive Protein <0.5 mg/dL (<1.0)
== END ==
LOC: PROCWHC3 11:59
PROVIDERS: ATTEND Nurse Practitioner Family
DX: E11.621 Type 2 diabetes mellitus with foot ulcer (principal); L97.522 Non-pressure chronic ulcer of other part of left foot with fat layer exposed; Z87.891 Personal history of nicotine dependence; M86.9 Osteomyelitis, unspecified
CPT/HCPCS: 36591; 80048; 80202; 85025; 85652; 86140

== ENCOUNTER → 2023-08-23 | Outpatient (CLI) | payer BC ==
--- NOTE | 2023-08-23 12:39 | XR ---
EXAMINATION TYPE: XR lumbar spine 2 or 3V DATE OF EXAM: 08/23/2023 CLINICAL HISTORY: pain TECHNIQUE: Three views of the lumbar spine are submitted. COMPARISON: None. FINDINGS: There are 5 lumbar type vertebral bodies identified. Mild curvature convex to the right. The lumbar spine shows satisfactory alignment without evidence of acute fracture or dislocation. Vertebral body heights are within normal limits. Moderate to severe multilevel degenerative disc space narrowing a nd spondylosis. The overlying soft tissue appears unremarkable. IMPRESSION: No acute fracture or dislocation is seen in the lumbar spine. ICD 10 NO FRACTURE, INITIAL EVALUATION
== END | disposition home or self-care (01) ==
LOC: RADXRMAIN 12:01
PROVIDERS: ATTEND Podiatrist
DX: M54.16 Radiculopathy, lumbar region (principal)
CPT/HCPCS: 72100

== ENCOUNTER → 2025-03-30 | Outpatient (CLI) | payer MEDICARE ==
--- NOTE | 2025-03-30 10:20 | US ---
EXAMINATION TYPE: US liver DATE OF EXAM: 03/30/2025 COMPARISON: US 2020 CLINICAL INDICATION: Male, 59 years old with history of I10 HTN; Cirrhosis TECHNIQUE: Grayscale and color Doppler imaging of the right upper quadrant. FINDINGS: EXAM MEASUREMENTS: Liver Length: 17.7 cm Gallbladder Wall: 0.51 cm CBD: 0.74 cm, color Doppler imaging was utilized to isolate the common bile duct for measurement. No rmal up to 0.6 cm at this age. Right Kidney: 12.6 x 7.4 x 5.3 cm SUCCESSFACTORS CONSULTANT NOTES: Exam is limited due to gas Pancreas: Appears hyperechoic. Portion of head and tail was obscured. Liver: *Enlarged. Appears very coarse. Gallbladder: *Appears hydropic measuring 14.8 cm in length. Wall appears thickened. *There appears to be a cluster of echogenic foci within the GB neck: 2.5 x 1.9 x 0.7 cm. Evidence for sonographic Warner's sign: No CBD: Slightly dilated Right Kidney: *Limited visibility. Measures slightly large. Ascites seen in all four quadrants of the abdomen and in ML epigastric area. *Portal vein appears dilated measures 2.3 cm. IMPRESSION: 1. Hepatomegaly. 2. Ascites. 3. Cholelithiasis. 4. Mild prominence common bile duct. 5. Prominent portal vein. [facility], Workstation: [facility], 03/30/2025 10:18 AM
[2025-03-30 15:27] LABS: Basophils # (A) 0.03 X 10*3/uL (0.00-0.10); Basophils % (A) 0.8 %; Eosinophils # (A) 0.15 X 10*3/uL (0.04-0.35); Eosinophils % (A) 3.8 %; HCT 37.8 % (39.6-50.0); HGB 12.5 g/dL (13.0-17.0); Immature Grans, Automated 0.30 %; Lymphocytes # (A) 0.86 X 10*3/uL (0.90-5.00); Lymphocytes % (A) 21.9 %; MCH 30.2 pg (27.0-32.0); MCHC 33.1 g/dL (32.0-37.0); MCV 91.3 FL (80.0-97.0); Monocytes # (A) 0.51 X 10*3/uL (0.20-1.00); Monocytes % (A) 13.0 %; NRBC Per 100 WBC 0 X 10*3/uL (0.00-0.01); Neutrophils # (A) 2.36 X 10*3/uL (1.80-7.70); Neutrophils % (A) 60.2 %; Platelet Count 122 X 10*3/uL (140-440); RBC 4.14 X 10*6/uL (4.40-5.60); RDW 13.0 % (11.5-14.5); WBC 3.92 X 10*3/uL (4.50-10.00)
[2025-03-30 15:53] LABS: Albumin 3.4 g/dL (3.8-4.9); Total Protein 6.6 g/dL (6.2-8.2)
== END | disposition home or self-care (01) ==
LOC: RADUSWWP 08:55
PROVIDERS: ATTEND Internal Medicine Gastroenterology
DX: K74.60 Unspecified cirrhosis of liver (principal); K80.20 Calculus of gallbladder without cholecystitis without obstruction; R16.0 Hepatomegaly, not elsewhere classified; R18.8 Other ascites; I10 Essential (primary) hypertension
CPT/HCPCS: 76705; 82040; 84155; 85025

== ENCOUNTER 2025-03-31 12:47 | Day surgery (SDC) | payer MEDICARE ==
[2025-03-31 13:44] LABS: Immature Platelet Fraction 3.5 % (1.1-6.1); Platelet Count 130 10*3/uL (140-440)
[2025-03-31 13:53] LABS: African American GFR (CKD) >90 (>60 ml/min/1.73 sqM); Glucose 142 mg/dL (74-99); Non-African American GFR(CKD) >90 (>60 ml/min/1.73 sqM)
[2025-03-31 13:59] LABS: INR 1.2 (<1.2); Prothrombin Time 12.7 sec (10.0-12.5)
[2025-03-31 14:01] VITALS: RESP 18; TEMP 99.3
[2025-03-31] MEDS: ALBUMIN HUMAN 25% 50 ML in EMPTY BAG 1 BAG IVPB SCH (14:36)
[2025-03-31 15:33] VITALS: BP 118/71; PULSE 62
--- NOTE | 2025-03-31 15:41 | US ---
EXAMINATION TYPE: US paracentesis abd w/image DATE OF EXAM: 03/31/2025 2:19 PM COMPARISON: Ultrasound CLINICAL INDICATION:Male, 59 years old with history of K74.60, R18.8; , ascites ATTENDING: Dr. Fernando Mcarthur PROCEDURE: Informed consent was obtained. The risks of the procedure were extensively explained incl uding risk of damage to surrounding bowel with perforation and need for additional procedures. Proced ure was performed in the ultrasound procedure suite. Ultrasound imaging of the abdomen demonstrate as citic fluid. An appropriate access site was localized to the left lower abdomen. Timeout was taken pe r protocol. The skin was prepped and draped in the usual sterile fashion and then locally anesthetize d with 1% lidocaine. The peritoneal cavity was then accessed via a 5-Canadian one-step needle/catheter . Approximately 6400 mL of clear straw-colored fluid was obtained. Samples were sent to the lab for analysis. Postprocedural imaging of the abdomen demonstrate a minimal amount of abdominal fluid. Patient tolerated procedure well without immediate complication. Hemostasis at the procedural site w as obtained with a sterile bandage placed. The patient was monitored in the holding area following th e procedure and was subsequently discharged in stable condition. IMPRESSION: Ultrasound guided paracentesis, with approximately 6400 mL of clear straw-colored fluid drained. Path ology results pending. No immediate complications were evident. [facility], , 03/31/2025 3:39 PM
[2025-03-31 20:42] LABS: T. Protein, Body Fluid Source Peritoneal Fluid; Total Protein, Body Fluid 1740 mg/dL
[2025-03-31 20:46] LABS: Appearance,BF Clear (Clear)
[2025-03-31 20:48] LABS: Albumin, Fluid Source Peritoneal Fluid
== END 2025-03-31 15:25 | disposition home or self-care (01) ==
LOC: RADPROMAIN 12:47
PROVIDERS: ATTEND Internal Medicine Gastroenterology
DX: R18.8 Other ascites (principal)
CPT/HCPCS: 82042; 89050; 82565; 82947; 85049; 85610; 84157; 36415; 49083; P9047; 88108; 88305